=== PATIENT | male | born 1945 | race Caucasian/White ===

== ENCOUNTER → 2018-02-27 09:19 | Outpatient (CLI) | payer MEDICARE, SELFPAY ==
[2018-02-27 10:15] LABS: Hemoglobin A1c 5.7 % (4.2-6.3)
[2018-02-27 10:20] LABS: ALB/GLOB Ratio 1.3 RATIO (0.9-2.4); AST(SGOT) 21 U/L (15-37); Alanine Aminotransfer ALT/SGPT 32 U/L (16-61); Albumin, Serum 3.9 g/dL (3.2-5.0); Alkaline Phosphatase 78 U/L (45-117); Anion Gap 8 (5-15); BUN 16 mg/dL (7-18); BUN/Creat Ratio 17.5 RATIO (10-20); Calcium,Total 8.5 mg/dL (8.5-10.1); Chloride 106 mmol/L (98-107); Cholesterol 146 mg/dL (200); Creatinine, Serum 0.92 mg/dL (0.70-1.30); EST Glomerular Filtration Rate 87 mL/min (>60); Est Glom Filt Rate - Afr Amer 105 mL/min (>60); Globulin 3.1 g/dL (2.2-4.2); Glucose 128 mg/dL (74-106); High Density Lipoprotein 47 mg/dL; Potassium 4.2 mmol/L (3.5-5.1); Sodium Level 144 mmol/L (136-145); Triglycerides 94 mg/dL; Very Low Density Lipoprotein 19 mg/dL (5-40)
== END ==
PROVIDERS: Family Provider Family Medicine; PCP Family Medicine; Visit Provider Family Medicine
DX: Z00.00 Encounter for general adult medical examination without abnormal findings (principal); R73.01 Impaired fasting glucose; Z13.220 Encounter for screening for lipoid disorders; E78.5 Hyperlipidemia, unspecified
CPT/HCPCS: 36415; 80053; 80061; 83036

== ENCOUNTER → 2018-10-31 14:30 | Outpatient (CLI) | payer MEDICARE, SELFPAY ==
[2018-10-31 15:34] LABS: PSA,Total - Annual Screen 0.98 ng/mL (0.00-4.00)
== END ==
PROVIDERS: Family Provider Family Medicine; PCP Family Medicine
DX: N40.1 Benign prostatic hyperplasia with lower urinary tract symptoms (principal)
CPT/HCPCS: 36415; 84153; G0103

== ENCOUNTER → 2019-02-20 08:10 | Outpatient (CLI) | payer MEDICARE, SELFPAY ==
[2019-02-20 08:44] LABS: Absolute Lymphocyte Count 1.37 X10^3/ul (0.83-4.51); Absolute Neutrophil Count 2.6 X10^3/uL (2.0-7.7); Basophil# 0.07 X10^3/uL; Basophil% 1.5 % (0-1); Eosinophil# 0.22 X10^3/uL; Eosinophils% 4.6 % (0-5); Hematocrit 43.2 % (40-54); Hemoglobin 15.5 g/dl (13.0-16.5); Lymphocyte # 1.37 X10^3/ul (4.0); Lymphocyte % 28.7 % (19-41); Mean Corp Hgb Conc 35.9 g/gl (32-36); Mean Corpuscular Hgb 31.8 pg (27.0-32.0); Mean Corpuscular Volume 88.7 fL (80-94); Mean Platelet Vol. 9.8 fl (6.2-12.0); Monocyte# 0.51 X10^3/uL; Monocyte% 10.7 % (0-10); Neutrophil % 54.3 % (47-70); Platelet Count 133 K/mm3 (150-450); RBC Distribution Width CV 12.9 % (11.6-14.6); RBC Distribution Width SD 41.5 fl (35.1-43.9); Red Blood Count 4.87 M/mm3 (4.6-6.2); White Blood Count 4.8 K/mm3 (4.4-11.0)
[2019-02-20 08:48] LABS: POSITIVE COUNT NO; POSITIVE DIFFERENTIAL NO; POSITIVE MORPHOLOGY NO
[2019-02-20 08:54] LABS: ALB/GLOB Ratio 1.3 RATIO (0.9-2.4); AST(SGOT) 17 U/L (15-37); Alanine Aminotransfer ALT/SGPT 34 U/L (16-61); Albumin, Serum 3.7 g/dL (3.2-5.0); Alkaline Phosphatase 79 U/L (45-117); Anion Gap 5 (5-15); BUN 21 mg/dL (7-18); BUN/Creat Ratio 21.1 RATIO (10-20); Calcium,Total 8.3 mg/dL (8.5-10.1); Chloride 106 mmol/L (98-107); Cholesterol 162 mg/dL (200); EST Glomerular Filtration Rate 78 mL/min (>60); Est Glom Filt Rate - Afr Amer 95 mL/min (>60); Globulin 2.9 g/dL (2.2-4.2); Glucose 122 mg/dL (74-106); High Density Lipoprotein 49 mg/dL; Protein, Total 6.6 g/dL (6.4-8.2); Sodium Level 139 mmol/L (136-145); Triglycerides 62 mg/dL; Very Low Density Lipoprotein 12 mg/dL (5-40)
[2019-02-20 09:11] LABS: Hemoglobin A1c 5.8 % (4.2-6.3)
== END ==
PROVIDERS: Family Provider Family Medicine; PCP Family Medicine; Referring Provider Family Medicine; Visit Provider Family Medicine
DX: Z00.00 Encounter for general adult medical examination without abnormal findings (principal); E78.49 Other hyperlipidemia
CPT/HCPCS: 36415; 80053; 80061; 83036; 85025

== ENCOUNTER → 2019-11-02 10:19 | Outpatient (CLI) | payer MEDICARE, SELFPAY ==
[2019-11-02 10:50] LABS: PSA,Total - Annual Screen 1.05 ng/mL (0.00-4.00)
== END ==
PROVIDERS: PCP Family Medicine
DX: Z12.5 Encounter for screening for malignant neoplasm of prostate (principal)
CPT/HCPCS: 36415; 84153; G0103

== ENCOUNTER → 2020-02-18 08:35 | Outpatient (CLI) | payer MEDICARE, SELFPAY ==
[2020-02-18 09:32] LABS: ALB/GLOB Ratio 1.3 RATIO (0.9-2.4); AST(SGOT) 18 U/L (15-37); Alanine Aminotransfer ALT/SGPT 31 U/L (16-61); Albumin, Serum 3.7 g/dL (3.2-5.0); Alkaline Phosphatase 71 U/L (45-117); Anion Gap 6 (5-15); BUN 15 mg/dL (7-18); BUN/Creat Ratio 16.6 RATIO (10-20); Calcium,Total 8.2 mg/dL (8.5-10.1); Chloride 108 mmol/L (98-107); Cholesterol 159 mg/dL (200); EST Glomerular Filtration Rate 88 mL/min (>60); Est Glom Filt Rate - Afr Amer 106 mL/min (>60); Globulin 2.9 g/dL (2.2-4.2); Glucose 151 mg/dL (74-106); High Density Lipoprotein 42 mg/dL; Potassium 3.9 mmol/L (3.5-5.1); Protein, Total 6.6 g/dL (6.4-8.2); Sodium Level 141 mmol/L (136-145); Triglycerides 135 mg/dL; Very Low Density Lipoprotein 27 mg/dL (5-40)
== END ==
PROVIDERS: PCP Family Medicine; Referring Provider Family Medicine Sports Medicine; Visit Provider Family Medicine Sports Medicine
DX: E78.2 Mixed hyperlipidemia (principal)
CPT/HCPCS: 36415; 80053; 80061

== ENCOUNTER → 2020-11-05 08:50 | Outpatient (CLI) | payer MEDICARE, SELFPAY ==
[2020-11-05 10:16] LABS: PSA,Total - Annual Screen 1.17 ng/mL (0.00-4.00)
== END ==
PROVIDERS: PCP Family Medicine
DX: Z12.5 Encounter for screening for malignant neoplasm of prostate (principal)
CPT/HCPCS: 36415; 84153; G0103

== ENCOUNTER → 2021-05-06 07:51 | Outpatient (CLI) | payer MEDICARE, SELFPAY ==
[2021-05-06 08:24] LABS: Hematocrit 44.3 % (40-54); Hemoglobin 15.6 g/dL (13.0-16.5); Mean Corp Hgb Conc 35.2 g/dL (32-36); Mean Corpuscular Hgb 31.4 pg (27.0-32.0); Mean Corpuscular Volume 89.1 fL (80-94); Mean Platelet Vol. 10.2 fl (6.2-12.0); Platelet Count 143 K/mm3 (150-450); RBC Distribution Width CV 12.2 % (11.6-14.6); RBC Distribution Width SD 40.2 fl (35.1-43.9); Red Blood Count 4.97 M/mm3 (4.6-6.2); White Blood Count 5.7 K/mm3 (4.4-11.0)
[2021-05-06 08:33] LABS: ALB/GLOB Ratio 1.1 RATIO (0.9-2.4); AST(SGOT) 19 U/L (15-37); Alanine Aminotransfer ALT/SGPT 30 U/L (16-61); Albumin, Serum 3.6 g/dL (3.2-5.0); Alkaline Phosphatase 79 U/L (45-117); Anion Gap 6 (5-15); BUN 17 mg/dL (7-18); BUN/Creat Ratio 18.4 RATIO (10-20); Calcium,Total 8.4 mg/dL (8.5-10.1); Chloride 109 mmol/L (98-107); Cholesterol 156 mg/dL (200); Creatinine, Serum 0.92 mg/dL (0.70-1.30); EST Glomerular Filtration Rate 85 mL/min (>60); Est Glom Filt Rate - Afr Amer 103 mL/min (>60); Globulin 3.4 g/dL (2.2-4.2); Glucose 151 mg/dL (74-106); High Density Lipoprotein 47 mg/dL; Sodium Level 139 mmol/L (136-145); Triglycerides 110 mg/dL; Very Low Density Lipoprotein 22 mg/dL (5-40)
[2021-05-06 08:48] LABS: Hemoglobin A1c 5.8 % (3.8-5.6)
[2021-05-06 09:12] LABS: Hepatitis C Antibody Non-Reactive (Nonreactive)
== END ==
PROVIDERS: PCP Family Medicine; Referring Provider Family Medicine Sports Medicine; Visit Provider Family Medicine Sports Medicine
DX: Z00.00 Encounter for general adult medical examination without abnormal findings (principal); R73.01 Impaired fasting glucose; E78.2 Mixed hyperlipidemia; Z11.59 Encounter for screening for other viral diseases
CPT/HCPCS: 36415; 80053; 80061; 83036; 85027; 86803

== ENCOUNTER 2021-11-04 08:44 | Outpatient (CLI) | payer MEDICARE, SELFPAY ==
[2021-11-04 09:22] LABS: PSA,Total- Diagnostic 1.88 ng/mL (0.0-4.0)
== END 2021-11-04 23:59 | disposition home or self-care (01) ==
PROVIDERS: PCP Family Medicine; Visit Provider Urology
DX: N40.1 Benign prostatic hyperplasia with lower urinary tract symptoms (principal)
CPT/HCPCS: 36415; 84153

== ENCOUNTER → 2022-02-24 | Outpatient (CLI) | payer MEDICARE, SELFPAY ==
[2022-02-24 07:57] LABS: Absolute Lymphocyte Count 1.49 X10^3/uL (0.83-4.51); Absolute Neutrophil Count 3.5 X10^3/uL (2.0-7.7); Basophil# 0.07 X10^3/uL; Basophil% 1.2 % (0-1); Eosinophil# 0.22 X10^3/uL; Eosinophils% 3.7 % (0-5); Hematocrit 45.3 % (40-54); Lymphocyte # 1.49 X10^3/ul (0.83-4.51); Lymphocyte % 25.2 % (19-41); Mean Corp Hgb Conc 35.3 g/dL (32-36); Mean Corpuscular Volume 87.8 fL (80-94); Mean Platelet Vol. 9.9 fl (6.2-12.0); Monocyte# 0.63 X10^3/uL; Monocyte% 10.7 % (0-10); NRBC Flagged by Analyzer 0 % (0-5); Neutrophil # 3.49 X10^3/uL (2.7-7.7); Platelet Count 133 K/mm3 (150-450); RBC Distribution Width CV 12.5 % (11.6-14.6); RBC Distribution Width SD 40.4 fl (35.1-43.9); Red Blood Count 5.16 M/mm3 (4.6-6.2); White Blood Count 5.9 K/mm3 (4.4-11.0)
[2022-02-24 08:30] LABS: ALB/GLOB Ratio 1.2 RATIO (0.9-2.4); AST(SGOT) 14 U/L (15-37); Alanine Aminotransfer ALT/SGPT 29 U/L (16-61); Albumin, Serum 3.8 g/dL (3.2-5.0); Alkaline Phosphatase 76 U/L (45-117); Anion Gap 4 (5-15); BUN 20 mg/dL (7-18); BUN/Creat Ratio 21.9 RATIO (10-20); Calcium,Total 8.6 mg/dL (8.5-10.1); Chloride 108 mmol/L (98-107); Cholesterol 156 mg/dL (200); Creatinine, Serum 0.91 mg/dL (0.70-1.30); EST Glomerular Filtration Rate 86 mL/min (>60); Est Glom Filt Rate - Afr Amer 104 mL/min (>60); Globulin 3.1 g/dL (2.2-4.2); Glucose 139 mg/dL (74-106); High Density Lipoprotein 43 mg/dL; Protein, Total 6.9 g/dL (6.4-8.2); Sodium Level 138 mmol/L (136-145); Triglycerides 95 mg/dL; Very Low Density Lipoprotein 19 mg/dL (5-40)
== END | disposition home or self-care (01) ==
LOC: PAVLAB 07:35
PROVIDERS: PCP Family Medicine; Referring Provider Family Medicine Sports Medicine; Visit Provider Family Medicine Sports Medicine
DX: Z00.00 Encounter for general adult medical examination without abnormal findings (principal); D69.6 Thrombocytopenia, unspecified; R73.01 Impaired fasting glucose; E78.2 Mixed hyperlipidemia
CPT/HCPCS: 36415; 80053; 80061; 83036; 85025

== ENCOUNTER 2022-03-19 08:42 | Emergency (ER) | payer MEDICARE, SELFPAY ==
[2022-03-19 08:44] VITALS: BP 158/75; PULSE 65; RESP 18; TEMP 36.4; O2SAT 99; BMI 28.0
--- NOTE | 2022-03-19 09:47 | EKG12_ITS ---
Test Reason : Blood Pressure : / mmHG Vent. Rate : 059 BPM Atrial Rate : 059 BPM P-R Int : 184 ms QRS Dur : 094 ms QT Int : 404 ms P-R-T Axes : 022 005 017 degrees QTc Int : 399 ms Sinus bradycardia Otherwise normal ECG Confirmed by JOSE HERNANDEZ, HILDA ([id number]), supervising editor news reel JUANA CM ([id number]) on 03/22/2022 11:42:53 AM Referred By: Ruy Confirmed By:HILDA GARCIA MD
--- NOTE | 2022-03-19 09:47 | CT_ITS ---
STUDY: CT ABDOMEN AND PELVIS WITH CONTRAST REASON FOR EXAM: Male, 76 years old. Constipation, abdominal distention RADIATION DOSAGE (If Supplied By Facility): CTDIvol = ( 16.77 ) mGy, DLP = ( 958.08 ) mGycm TECHNIQUE: Transaxial images were obtained from the dome of the diaphragm to the symphysis pubis without oral contrast. IV 100mL Isovue-370 was administered. Sagittal and coronal images were reconstructed. Individualized dose optimization techniques were used for this CT. COMPARISON: None. FINDINGS: The visualized lung bases are unremarkable. Several small cysts are scattered throughout the liver, which are benign and require no additional imaging. Normal remaining aspects of the liver. No intrahepatic biliary duct dilatation or liver mass. Normal gallbladder and extrahepatic biliary system. Normal spleen. Mild acute pancreatitis is present with edema in the parenchyma and peripancreatic inflammatory stranding at the head neck junction. Normal body to tail of the pancreas. Normal bilateral adrenal glands. Normal right kidney. A 3 mm calyceal stone is present in the midpole of the left kidney see image #37/137 series 2. No hydronephrosis or renal masses. No visualized radiopaque stones. Normal visualized stomach. Normal small intestine. Moderate descending and rectosigmoid diverticulosis is present. Normal remaining colonic loops. A small amount of stool is present in the colon. No bowel dilatation or obstruction. No free air or free fluid. The appendix is visualized and appears normal. Normal abdominal aorta. Normal inferior vena cava. Normal retroperitoneum. Normal urinary bladder. Mild enlargement and calcifications of the prostate gland. Normal abdominal wall. There are diffuse degenerative changes of the visualized lumbar spine. CT/Abdomen/Pelvis W IV Cont ONLY IMPRESSION: 1. Acute pancreatitis affecting the head neck junction with mild peripancreatic inflammatory stranding. 2. Sigmoid diverticulosis 3. 3 mm nonobstructing left kidney stone 4. Small amount of stool in the colon. Electronically Signed: Earl Feldman MD at 11:43 EDT ,
--- NOTE | 2022-03-19 09:49 | ED.VIS.GI ---
HPI HPI - GI History of Present Illness Chief Complaint: Abd Pain Informant: patient Narrative Narrative: Patient is a 76-year-old male that denies any significant past medical history (had a routine screening colonoscopy earlier this year that was normal) presenting with abdominal pain and distention. Patient states he woke up Tuesday morning, 3 days ago with discomfort in his upper abdomen. He states is been persistent and unchanging. He describes as an ache. Denies any nausea, vomiting or diarrhea. States he had a good bowel movement yesterday but only had a small bowel movement this morning. States he is having a hard time passing gas. He is at increased belching. No change with eating or drinking. States he went golfing this week and it did not change his symptoms. Denies associated chest pain, shortness of breath or difficulty breathing. Denies a history of any abdominal surgeries. Denies any urinary symptoms. Has been taking Tums with no relief of his symptoms either. PFSH PFSH Home Medications hydrocodone-acetaminophen 5-325mg 5mg-325mg 1 tab PO Q6H PRN pain 3 days #12 tabs 03/19/22 [Rx Last Taken Unknown] ondansetron 4 mg disintegrating tablet 4 mg PO Q6H PRN nausea and vomiting #10 tabs 03/19/22 [Rx Last Taken Unknown] Allergy/AdvReac Type Severity Reaction Status Date / Time No Known Allergies Allergy Verified 03/19/22 08:47 Social History Smoking Status: Unknown if ever smoked ROS [facility] [[email or web address] ED Constitutional Constitutional ED: Denies chills or fever(s) ENT ENT ED: Denies rhinorrhea or sore throat Cardiovascular Cardiovascular: Denies chest pain or palpitations Respiratory/Chest Respiratory/Chest: Denies cough Gastrointestinal Gastrointestinal: Reports abdominal pain and constipation; Denies diarrhea, nausea or vomiting Genitourinary Genitourinary ED: Denies dysuria, hematuria or urinary frequency Musculoskeletal Musculoskeletal: Denies arthralgias or myalgias Integumentary Denies rash Neurologic Neurologic: Denies headache(s), paresthesias or weakness Psychiatric Psychiatric: Denies anxiety Hematologic/Lymphatic Hematologic/Lymphatic: Denies easy bleeding or easy bruising EXAM Physical Exam Const Vital Signs: 03/19/22 08:44 03/19/22 11:29 Temperature 97.5 F L Temperature Source Temporal Pulse Rate 65 70 Respiratory Rate 18 14 Blood Pressure 158/75 H 151/73 H Blood Pressure Mean 102 99 Pulse Ox 99 Oxygen Delivery Method Room Air Positive well nourished and well developed General Appearance ED: well developed and NAD HEENT HEENT Narrative: Tacky mucosal membranes normocephalic and atraumatic Eyes PERRL and EOMs intact bilaterally Neck supple and no JVD Resp normal respiratory effort and clear to auscultation bilaterally Effort and Inspection: Negative for respiratory distress Auscultation: Negative for rhonchi or wheezes Cardio regular rate, regular rhythm and no murmurs Cardio Narrative: 2+ radial and DP pulses GI GI Narrative: No fluid wave appreciated. Mild tenderness palpation in the upper abdomen diffusely but does not localize. Negative White sign. No pain McBurney's point. Inspection: abdominal distention Auscultation: hypoactive bowel sounds Palpation: soft; Negative for guarding or rigid Back/Spine no CVA tenderness Neuro moves all extremities and no sensory deficits noted Sensorium / Orientation: alert, oriented to person, oriented to place and oriented to time Motor Exam: strength 5/5 throughout; Negative for general weakness Psych mental status grossly normal and thought process normal Skin no wounds Skin Narrative: [place] General Skin Exam: Negative for jaundice MDM MDM MDM Narrative Medical decision making narrative: Patient is evaluated for upper abdominal discomfort and distention. He said some belching and constipation. He does drink 1 alcoholic beverage a day. Differential includes pancreatitis, peptic ulcer disease, small bowel obstruction or diverticulitis. Given the pain is above the level of the umbilicus and patient is 76, cardiac work-up also obtained which is largely negative. Work-up is remarkable for pancreatitis. His lipase elevated at 785 and [address] in his urine. CT is consistent with acute pancreatitis. Patient declines any pain medication here. He is overall well-appearing. Patient would like to try treating outpatient. Counseled on pain control as well as clear liquid diet and bowel rest. Has GI doctor, Dr. Dickerson, in [place]. Counseled the importance of following up with him especially to make sure that he does not have any type of pancreatic mass, polyp or cyst that could be contributing to his pancreatitis today. Encouraged to return to emergency room immediately if he is not tolerating conservative treatment at home. Lab Data Attestation: I reviewed the patient's lab results. Labs: Laboratory Results - last 24 hr 03/19/22 03/19/22 03/19/22 09:57 09:57 10:45 WBC 10.5 RBC 4.21 L Hgb 13.0 Hct 36.9 L MCV 87.6 MCH 30.9 MCHC 35.2 RDW Std Deviation 40.6 RDW Coeff of Yi 12.7 Plt Count 134 L MPV 10.1 Immature Gran % (Auto) 0.300 Neut % (Auto) 78.9 H Lymph % (Auto) 8.5 L [place] % (Auto) 10.7 H Eos % (Auto) 1.1 Baso % (Auto) 0.5 Absolute Neuts (auto) 8.3 H Absolute Lymphs (auto) 0.89 Nucleated RBC % 0 Sodium 133 L Potassium 3.7 Chloride 103 Carbon Dioxide 24.0 Anion Gap 6 BUN 15 Creatinine 0.88 Estim Creat Clear Calc 72.53 Est GFR (MDRD) Af Amer 108 Est GFR (MDRD) Non-Af 89 BUN/Creatinine Ratio 17.0 Glucose 132 H Calcium 8.3 L Total Bilirubin 0.90 AST 12 L ALT 19 Alkaline Phosphatase 71 Troponin I High Sens 4 Total Protein 6.7 Albumin 3.3 Globulin 3.4 Albumin/Globulin Ratio 1.0 Lipase 765 H Urine Color Yellow Urine Clarity Clear Urine pH 6.0 Ur Specific [place] 1.015 Urine Protein 15 H Urine Glucose (UA) Normal Urine Ketones 150 A* Urine Occult Blood 25 H Urine Nitrite Negative Urine Bilirubin Negative Urine Urobilinogen Normal Ur Leukocyte Esterase Negative Urine RBC 0 SEEN Urine WBC 0 SEEN Ur Squamous Epith Cells 0 SEEN Urine Bacteria 0 SEEN Urine Mucus 0 SEEN Radiography Diagnostic Testing: Clinical Impression(s) from Imaging Studies Abdomen/Pelvis CT 03/19/22 09:47 IMPRESSION: 1. Acute pancreatitis affecting the head neck junction with mild peripancreatic inflammatory stranding. 2. Sigmoid diverticulosis 3. 3 mm nonobstructing left kidney stone 4. Small amount of stool in the colon. Electronically Signed: Earl Feldman MD at 11:43 EDT , Rhythm Strip Rhythm Strip: Sinus Rhythm Rate: 59 Ectopy: None EKG Initial EKG: Attestation: I personally reviewed and interpreted this EKG as follows: Interpretation: Sinus Rhythm Comments: Normal sinus rhythm at a rate of 59 Normal axis Normal intervals Normal ST segments Discharge Plan Triage Chief Complaint: Abd Pain ED Provider: Jacki Rojas Dx/Rx/DC Orders Clinical Impression: Acute pancreatitis, Elevated lipase, Abdominal distension Instructions: ED Clear Liquid Diet, ED Pancreatitis Prescriptions: New ondansetron 4 mg tablet,disintegrating 4 mg PO Q6H PRN (Reason: nausea and vomiting) Qty: 10 0RF hydrocodone-acetaminophen 5-325 mg tablet 1 tab PO Q6H PRN (Reason: pain) 3 Days Qty: 12 0RF Primary Care Provider: Aurora Cool Referrals: Aurora Cool MD [Primary Care Provider] - Activity Restrictions/Additional Instructions: Please follow-up with your GI doctor soon as possible for further evaluation of your pancreatitis. Avoid any alcohol. If you are taking the pain medication please also take a stool softener or MiraLAX to prevent constipation. Disposition Disposition: Home, Self Care
--- NOTE | 2022-03-19 09:58 | NURSING ---
NO OLD EKGS
[2022-03-19] MEDS: 0.9% Normal Saline 1,000 ML 125 ML IV (10:00)
[2022-03-19] MEDS: Famotidine 200 MG/20 ML MDV 20 MG in 0.9% Normal Saline (Pres. free 8 ML 300 MG IV (10:01)
[2022-03-19 10:11] LABS: Absolute Lymphocyte Count 0.89 X10^3/uL (0.83-4.51); Absolute Neutrophil Count 8.3 X10^3/uL (2.0-7.7); Basophil# 0.05 X10^3/uL; Basophil% 0.5 % (0-1); Eosinophil# 0.12 X10^3/uL; Eosinophils% 1.1 % (0-5); Hematocrit 36.9 % (40-54); Lymphocyte # 0.89 X10^3/ul (0.83-4.51); Lymphocyte % 8.5 % (19-41); Mean Corp Hgb Conc 35.2 g/dL (32-36); Mean Corpuscular Hgb 30.9 pg (27.0-32.0); Mean Corpuscular Volume 87.6 fL (80-94); Mean Platelet Vol. 10.1 fl (6.2-12.0); Monocyte# 1.12 X10^3/uL; Monocyte% 10.7 % (0-10); NRBC Flagged by Analyzer 0 % (0-5); Neutrophil # 8.27 X10^3/uL (2.7-7.7); Neutrophil % 78.9 % (47-70); Platelet Count 134 K/mm3 (150-450); RBC Distribution Width CV 12.7 % (11.6-14.6); RBC Distribution Width SD 40.6 fl (35.1-43.9); Red Blood Count 4.21 M/mm3 (4.6-6.2); White Blood Count 10.5 K/mm3 (4.4-11.0)
[2022-03-19 10:32] LABS: AST(SGOT) 12 U/L (15-37); Alanine Aminotransfer ALT/SGPT 19 U/L (16-61); Albumin, Serum 3.3 g/dL (3.2-5.0); Alkaline Phosphatase 71 U/L (45-117); Anion Gap 6 (5-15); BUN 15 mg/dL (7-18); Calcium,Total 8.3 mg/dL (8.5-10.1); Chloride 103 mmol/L (98-107); Creatinine, Serum 0.88 mg/dL (0.70-1.30); EST Glomerular Filtration Rate 89 mL/min (>60); Est Glom Filt Rate - Afr Amer 108 mL/min (>60); Estimated Creatinine Clearance 72.53 ml/min; Globulin 3.4 g/dL (2.2-4.2); Glucose 132 mg/dL (74-106); Lipase 765 U/L (73-393); Potassium 3.7 mmol/L (3.5-5.1); Protein, Total 6.7 g/dL (6.4-8.2); Sodium Level 133 mmol/L (136-145); Troponin-I HS 4 pg/mL (3.0-78.0)
[2022-03-19 10:48] LABS: Bacteria 0 SEEN /hpf (None Seen); Mucous, Urine 0 SEEN /hpf (<or=2+); Red Blood Cells-Urine 0 SEEN /hpf (0-5); Squamous Epithelial Cells - UA 0 SEEN /hpf (0-5); White Blood Cells 0 SEEN /hpf (0-5)
[2022-03-19 10:49] LABS: Color, Urine Yellow (Yellow); Glucose, Dipstick Normal (Normal); Leukocyte Esterase-Dipstick Negative /ul (Negative); Nitrite-Dipstick Negative (Negative); Occult Blood-Urine 25 /ul (Negative); Protein-Dipstick 15 mg/dl (Negative); Specific Gravity, Urine 1.015 (1.002-1.030); Urine Bilirubin Dipstick Negative (Negative); Urine Clarity Clear (Clear); Urine Urobilinogen Normal (Normal)
[2022-03-19 11:01] LABS: Ketone-Dipstick 150 mg/dl (Negative)
[2022-03-19 11:29] VITALS: BP 151/73; PULSE 70; RESP 14
[2022-03-19 14:14] VITALS: BP 148/68; PULSE 79; RESP 15; O2SAT 98
[2022-03-19] MEDS: HYDROcodone Bitartrate/Apap 5/325 Tablet PO (14:21)
== END 2022-03-19 14:25 | disposition home or self-care (01) ==
PROVIDERS: Emergency Provider Emergency Medicine; PCP Family Medicine Sports Medicine; Visit Provider Emergency Medicine
DX: K85.90 Acute pancreatitis without necrosis or infection, unspecified (principal); R14.0 Abdominal distension (gaseous)
CPT/HCPCS: 74177; 80053; 81001; 83690; 84484; 85025; 93005; 96361; 96365; 99283; J7030; Q9967; A4216; J3490

== ENCOUNTER → 2022-11-11 | Outpatient (CLI) | payer MEDICARE, SELFPAY ==
[2022-11-11 09:44] LABS: PSA,Total- Diagnostic 1.58 ng/mL (0.0-4.0)
== END | disposition home or self-care (01) ==
LOC: PAVLAB 09:02
PROVIDERS: PCP Family Medicine Sports Medicine; Referring Provider Urology; Visit Provider Urology
DX: N40.1 Benign prostatic hyperplasia with lower urinary tract symptoms (principal)
CPT/HCPCS: 36415; 84153

== ENCOUNTER → 2023-03-03 | Outpatient (CLI) | payer MEDICARE, SELFPAY ==
[2023-03-03 08:21] LABS: Absolute Lymphocyte Count 1.37 X10^3/uL (0.83-4.51); Absolute Neutrophil Count 2.6 X10^3/uL (2.0-7.7); Basophil# 0.07 X10^3/uL; Basophil% 1.4 % (0-1); Eosinophil# 0.29 X10^3/uL; Hematocrit 44.4 % (40-54); Hemoglobin 15.1 g/dL (13.0-16.5); Lymphocyte # 1.37 X10^3/ul (0.83-4.51); Lymphocyte % 28.2 % (19-41); Mean Corpuscular Hgb 30.1 pg (27.0-32.0); Mean Corpuscular Volume 88.6 fL (80-94); Mean Platelet Vol. 9.9 fl (6.2-12.0); Monocyte# 0.57 X10^3/uL; Monocyte% 11.7 % (0-10); NRBC Flagged by Analyzer 0 % (0-5); Neutrophil # 2.55 X10^3/uL (2.7-7.7); Neutrophil % 52.5 % (47-70); Platelet Count 128 K/mm3 (150-450); RBC Distribution Width CV 12.8 % (11.6-14.6); RBC Distribution Width SD 41.4 fl (35.1-43.9); Red Blood Count 5.01 M/mm3 (4.6-6.2); White Blood Count 4.9 K/mm3 (4.4-11.0)
[2023-03-03 08:57] LABS: ALB/GLOB Ratio 1.2 RATIO (0.9-2.4); AST(SGOT) 17 U/L (15-37); Alanine Aminotransfer ALT/SGPT 27 U/L (16-61); Albumin, Serum 3.7 g/dL (3.2-5.0); Alkaline Phosphatase 78 U/L (45-117); Anion Gap 5 (5-15); BUN 20 mg/dL (7-18); BUN/Creat Ratio 20.8 RATIO (10-20); Calcium,Total 8.4 mg/dL (8.5-10.1); Chloride 109 mmol/L (98-107); Cholesterol 131 mg/dL (200); Creatinine, Serum 0.96 mg/dL (0.70-1.30); EST Glomerular Filtration Rate 81 mL/min (>60); Est Glom Filt Rate - Afr Amer 98 mL/min (>60); Globulin 3.2 g/dL (2.2-4.2); Glucose 138 mg/dL (74-106); High Density Lipoprotein 47 mg/dL; Protein, Total 6.9 g/dL (6.4-8.2); Sodium Level 139 mmol/L (136-145); Triglycerides 83 mg/dL; Very Low Density Lipoprotein 17 mg/dL (5-40)
[2023-03-03 08:59] LABS: Hemoglobin A1c 5.9 % (3.8-5.6)
== END | disposition home or self-care (01) ==
LOC: PAVLAB 08:02
PROVIDERS: PCP Family Medicine Sports Medicine; Referring Provider Family Medicine Sports Medicine; Visit Provider Family Medicine Sports Medicine
DX: Z00.00 Encounter for general adult medical examination without abnormal findings (principal); R73.01 Impaired fasting glucose; E78.2 Mixed hyperlipidemia
CPT/HCPCS: 36415; 80053; 80061; 83036; 85025

== ENCOUNTER → 2023-11-28 | Outpatient (CLI) | payer MEDICARE, SELFPAY ==
[2023-11-28 09:05] LABS: PSA,Total- Diagnostic 1.31 ng/mL (0.0-4.0)
== END | disposition home or self-care (01) ==
LOC: PAVLAB 08:26
PROVIDERS: PCP Family Medicine Sports Medicine; Referring Provider Urology; Visit Provider Urology
DX: N40.1 Benign prostatic hyperplasia with lower urinary tract symptoms (principal)
CPT/HCPCS: 36415; 84153

== ENCOUNTER → 2024-03-06 | Outpatient (CLI) | payer MEDICARE, SELFPAY ==
[2024-03-06 08:45] LABS: Absolute Lymphocyte Count 1.24 X10^3/uL (0.83-4.51); Basophil# 0.07 X10^3/uL; Basophil% 1.4 % (0-1); Eosinophil# 0.22 X10^3/uL; Eosinophils% 4.3 % (0-5); Hematocrit 44.9 % (40-54); Hemoglobin 15.1 g/dL (13.0-16.5); Lymphocyte # 1.24 X10^3/ul (0.83-4.51); Lymphocyte % 24.5 % (19-41); Mean Corp Hgb Conc 33.6 g/dL (32-36); Mean Corpuscular Hgb 29.4 pg (27.0-32.0); Mean Corpuscular Volume 87.4 fL (80-94); Mean Platelet Vol. 10.1 fl (6.2-12.0); Monocyte# 0.49 X10^3/uL; Monocyte% 9.7 % (0-10); NRBC Flagged by Analyzer 0 % (0-5); Neutrophil # 3.02 X10^3/uL (2.7-7.7); Neutrophil % 59.7 % (47-70); Platelet Count 131 K/mm3 (150-450); RBC Distribution Width CV 12.8 % (11.6-14.6); RBC Distribution Width SD 40.6 fl (35.1-43.9); Red Blood Count 5.14 M/mm3 (4.6-6.2); White Blood Count 5.1 K/mm3 (4.4-11.0)
[2024-03-06 09:05] LABS: Hemoglobin A1c 5.6 % (3.8-5.6)
[2024-03-06 09:14] LABS: ALB/GLOB Ratio 1.1 RATIO (0.9-2.4); AST(SGOT) 21 U/L (15-37); Alanine Aminotransfer ALT/SGPT 28 U/L (16-61); Albumin, Serum 3.8 g/dL (3.2-5.0); Alkaline Phosphatase 84 U/L (45-117); Anion Gap 6 (5-15); BUN 21 mg/dL (7-18); BUN/Creat Ratio 20.4 RATIO (10-20); Calcium,Total 8.5 mg/dL (8.5-10.1); Chloride 105 mmol/L (98-107); Cholesterol 145 mg/dL (200); Creatinine, Serum 1.03 mg/dL (0.70-1.30); EST Glomerular Filtration Rate 74 mL/min (>60); Est Glom Filt Rate - Afr Amer 90 mL/min (>60); Globulin 3.4 g/dL (2.2-4.2); Glucose 141 mg/dL (74-106); High Density Lipoprotein 44 mg/dL; Potassium 3.9 mmol/L (3.5-5.1); Protein, Total 7.2 g/dL (6.4-8.2); Sodium Level 138 mmol/L (136-145); Triglycerides 127 mg/dL; Very Low Density Lipoprotein 25 mg/dL (5-40)
== END | disposition home or self-care (01) ==
LOC: PAVLAB 08:13
PROVIDERS: PCP Family Medicine Sports Medicine; Referring Provider Family Medicine Sports Medicine; Visit Provider Family Medicine Sports Medicine
DX: E78.2 Mixed hyperlipidemia (principal); R97.20 Elevated prostate specific antigen [PSA]; D69.6 Thrombocytopenia, unspecified; R73.01 Impaired fasting glucose
CPT/HCPCS: 36415; 80053; 80061; 83036; 85025

== ENCOUNTER → 2024-12-05 | Outpatient (CLI) | payer MEDICARE, SELFPAY ==
[2024-12-05 09:16] LABS: PSA,Total - Annual Screen 1.94 ng/mL (0.02-4.00)
== END | disposition home or self-care (01) ==
LOC: LAB 07:28
PROVIDERS: PCP Family Medicine Sports Medicine; Referring Provider Physician Assistant; Visit Provider Physician Assistant
DX: Z12.5 Encounter for screening for malignant neoplasm of prostate (principal)
CPT/HCPCS: 36415; 84153; G0103

== ENCOUNTER → 2025-03-07 | Outpatient (CLI) | payer MEDICARE, SELFPAY ==
[2025-03-07 08:36] LABS: Hematocrit 41.8 % (40-54); Hemoglobin 14.4 g/dL (13.0-16.5); Mean Corp Hgb Conc 34.4 g/dL (32-36); Mean Corpuscular Volume 85.5 fL (80-94); Mean Platelet Vol. 9.7 fl (6.2-12.0); Platelet Count 145 K/mm3 (150-450); RBC Distribution Width CV 13.4 % (11.6-14.6); RBC Distribution Width SD 41.7 fl (35.1-43.9); Red Blood Count 4.89 M/mm3 (4.6-6.2); White Blood Count 5.2 K/mm3 (4.4-11.0)
[2025-03-07 09:19] LABS: AST(SGOT) 19 U/L (<=37); Alanine Aminotransfer ALT/SGPT 18 U/L (<=46); Albumin, Serum 4.3 g/dL (3.4-4.8); Alkaline Phosphatase 80 U/L (40-129); Anion Gap 11 (5-15); BUN 17 mg/dL (4-19); BUN/Creat Ratio 17.4 RATIO (10-20); Calcium,Total 8.8 mg/dL (7.6-11.0); Carbon Dioxide 23.8 mmol/L (21.0-32.0); Chloride 102 mmol/L (98-108); Cholesterol 157 mg/dL (<=200); Globulin 2.6 g/dL (2.2-4.2); Glucose 145 mg/dL (70-99); Low Density Lipoprotein Calc. 88 mg/dL; Potassium 4.2 mmol/L (3.3-5.1); Triglycerides 106 mg/dL; Very Low Density Lipoprotein 21 mg/dL (5-40); cholesterol:hdl ratio screen 3.30
== END | disposition home or self-care (01) ==
LOC: PAVLAB 08:17
PROVIDERS: PCP Family Medicine Sports Medicine; Referring Provider Family Medicine Sports Medicine; Visit Provider Family Medicine Sports Medicine
DX: E78.2 Mixed hyperlipidemia (principal); R73.01 Impaired fasting glucose
CPT/HCPCS: 36415; 80053; 80061; 83036; 85027

== ENCOUNTER 2025-05-03 22:04 | Emergency (ER) | payer MEDICARE, SELFPAY ==
[2025-05-03 22:04] VITALS: BP 174/79; PULSE 51; RESP 20; TEMP 36.6; O2SAT 99; BMI 29.2
[2025-05-03 22:40] LABS: Hematocrit 42.7 % (40-54); Hemoglobin 15.1 g/dL (13.0-16.5); Immature Granulocytes Count 0.020 X10^3/uL (0.0-0.0); Mean Corp Hgb Conc 35.4 g/dL (32-36); Mean Corpuscular Volume 86.1 fL (80-94); Mean Platelet Vol. 9.6 fl (6.2-12.0); NRBC Flagged by Analyzer 0 % (0-5); Platelet Count 155 K/mm3 (150-450); RBC Distribution Width CV 13.7 % (11.6-14.6); RBC Distribution Width SD 42.5 fl (35.1-43.9); Red Blood Count 4.96 M/mm3 (4.6-6.2); White Blood Count 6.8 K/mm3 (4.4-11.0)
[2025-05-03 23:11] LABS: Mucous, Urine 0 SEEN /hpf (<or=2+); Red Blood Cells-Urine 0 SEEN /hpf (0-5); Squamous Epithelial Cells - UA 0 SEEN /hpf (0-5)
[2025-05-03 23:18] LABS: Color, Urine Yellow (Yellow); Glucose, Dipstick Normal (Normal); Ketone-Dipstick Negative (Negative); Leukocyte Esterase-Dipstick Negative /ul (Negative); Nitrite-Dipstick Negative (Negative); Occult Blood-Urine 10 /ul (Negative); Protein-Dipstick 15 mg/dl (Negative); Specific Gravity, Urine 1.020 (1.002-1.030); Urine Bilirubin Dipstick Negative (Negative)
--- NOTE | 2025-05-03 23:25 | CT_ITS ---
PROCEDURE: ABDOMEN/PELVIS W IV CONT ONLY 05/03/2025 REASON FOR EXAM: LEFT LOWER QUADRANT PAIN TECHNIQUE: Procedure Code: [id number] Modality: CT Procedure: ABDOMEN/PELVIS W IV CONT ONLY Coronal and Sagittal reconstruction series were provided. CONTRAST: Isovue-350 VOLUME: 100 mL One or more dose reduction techniques were used (e.g., Automated exposure control, adjustment of the mA and/or kV according to patient size, use of iterative reconstruction technique. RADIATION DOSE SUMMARY: CTDlvol: 19.83 mGy DLP: 1107 mGycm COMPARISON: 03/19/2022. FINDINGS: Diffuse colonic diverticulosis. Mild thickening of the distal descending and proximal sigmoid colon, probably mild colitis/diverticulitis without perforation or abscess formation. Unchanged 3 mm left renal nonobstructing stone. Scattered simple hepatic cysts are again noted with the largest measuring 1 cm. Diffuse thickening of the stomach suggestive of gastritis. Mild prostatomegaly, unchanged. Mild diffuse thickening of the bladder. Chronic bladder outlet obstruction versus mild cystitis. 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 The visualized lung bases are unremarkable. Normal gallbladder and extrahepatic biliary system. Normal spleen. Normal pancreas. Normal bilateral adrenal glands. Normal size of the right kidney. There is no right renal mass. There are no right renal calculi. There is no right hydronephrosis. Normal visualized right ureter. Normal size of the left kidney. There is no left renal mass. There is no left hydronephrosis. Normal visualized left ureter. Normal visualized stomach. Normal small intestine. Normal colon. The appendix is visualized and appears normal. There is no demonstrated peritoneal fluid. Calcified atheromatous plaques of the abdominal aorta. Normal inferior vena cava. Normal retroperitoneum. Normal urinary bladder. There is no pelvic mass lesion or lymphadenopathy. There is no pelvic fluid. Normal abdominal wall. Mild diffuse spondylosis. CT/Abdomen/Pelvis W IV Cont ONLY IMPRESSION: Diffuse colonic diverticulosis. Mild thickening of the distal descending and proximal sigmoid colon, probably m ild colitis/diverticulitis without perforation or abscess formation. Unchanged 3 mm left renal nonobstructing stone. Scattered simple hepatic cysts are again noted with the largest measuring 1 cm. Diffuse thickening of the stomach suggestive of gastritis. Mild prostatomegaly, unchanged. Mild diffuse thickening of the bladder. Chronic bladder outlet obstruction vers us mild cystitis. 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 [facility]
--- NOTE | 2025-05-03 23:26 | EDS_ITS ---
HPI HPI - GI History of Present Illness Chief Complaint: Abd Pain Informant: patient and spouse/S.O. Narrative Narrative: Patient has had left lower lateral abdominal pain that started yesterday gradually, but worsened today and has been somewhat colicky. No radiation. No back pain. No urinary symptoms, changes in bowel movements which been normal, nausea, vomiting, fevers, or chills. No history of any abdominal surgeries. He states in the last week or 2 has been having some off-and-on very mild comfort in his lower abdomen but nothing that lasted very long or was severe like this. Never had this pain before. States has had colonoscopies and was told everything was good, no history of diverticulosis or diverticulitis to his knowledge. [facility] Medical History (Updated 05/04/25 @ 02:[address] Kraig Boyd MD) Hyperlipidemia BPH (benign prostatic hyperplasia) Home Medications ?Medication ?Instructions ?Recorded ?Last Taken ?Type hydrocodone-acetaminophen 5-325mg 1 tab PO Q6H PRN divya n 3 days #12 03/19/22 Unknown Rx 5mg-325mg tabs ondansetron 4 mg disintegrating 4 mg PO Q6H PRN nausea and 03/19/22 Unknown Rx tablet vomiting #10 tabs amoxicillin 875 mg-potassium 875 mg PO Q12H #20 TABLET S 05/04/25 Unknown Rx clavulanate 125 mg tablet Allergy/AdvReac Type Severity Reaction Status Date / Time No Known Allergies Allergy Verified 05/03/25 22:05 Social History Smoking Status: Unknown if ever smoked ROS ROS ED Constitutional Constitutional ED: Denies chills or fever(s) Eyes Eyes: Denies change in vision or diplopia ENT ENT ED: Denies rhinorrhea or sore throat Cardiovascular Cardiovascular: Denies chest pain or palpitations Respiratory/Chest Respiratory/Chest: Denies cough or dyspnea Gastrointestinal Gastrointestinal: Reports abdominal pain; Denies diarrhea, nausea or vomiting Genitourinary Genitourinary ED: Denies dysuria or hematuria Musculoskeletal Musculoskeletal: Denies back pain or neck pain Integumentary Denies abscess or rash Neurologic Neurologic: Denies headache(s), paresthesias or weakness Psychiatric Psychiatric: Denies anxiety or suicidal thoughts EXAM Physical Exam Const Vital Signs: 05/03/25 22:04 05/04/25 00:14 Temperature 97.9 F 98.5 F Temperature Source Oral Oral Pulse Rate 51 L 52 L Respiratory Rate 20 H 16 Blood Pressure 174/79 H 148/75 H Blood Pressure Mean 110 99 Pulse Ox 99 97 Oxygen Delivery Method Room Air Room Air Positive well nourished and well developed General Appearance ED: well developed and NAD HEENT Reports moist mucous membranes normocephalic and atraumatic Eyes PERRL and EOMs intact bilaterally Neck full ROM and supple Resp normal respiratory effort and clear to auscultation bilaterally Cardio regular rate, regular rhythm and no murmurs GI non-distended GI Narrative: Very point tender in the lateral aspect of the left lower quadrant. Some mild voluntary guarding is resolved, no rebound tenderness or other areas of tenderness. Normal inspection no [place] sign, no Ramirez Foster sign. No CVA tenderness. Auscultation: normoactive bowel sounds Palpation: soft Back/Spine no CVA tenderness General Back: other FROM Extremity normal to inspection General Extremety ED: Negative for edema, pulses abnormal or tenderness General Extremity: Negative for edema or pulses abnormal Neuro oriented x3, CN's II-XII intact bilaterally and no sensory deficits noted Sensorium / Orientation: awake and alert Motor Exam: strength 5/5 throughout Skin no rashes or lesions noted and no wounds MDM MDM MDM Narrative Medical decision making narrative: Differential includes diverticulitis even though he does not know if he has diverticulosis or not, kidney stone, less likely AAA given his stability and no loss of pulses, other GI etiologies. Obtain labs, urinalysis, and CT of the abdomen/pelvis with IV contrast. I reviewed the images and report which I agree with. There are multiple incidentals and I discussed them all with the patient, but it does show an area suspicious for acute diverticulitis which I think explains his symptoms. Going to treat him with Augmentin. Does not have a significant leukocytosis, he is not septic, his vital signs are normal, after treating his pain his blood pressure is down to 148/75 and his pain is better with morphine. Reasonable to treat with Augmentin as an outpatient and have him follow-up with his doctor. He is comfortable with that plan. Was offered prescription analgesics and he declines. Lab Data Attestation: I reviewed the patient's lab results. Labs: Laboratory Results - last 24 hr 05/03/25 05/03/25 22:20 23:00 WBC 6.8 RBC 4.96 Hgb 15.1 Hct 42.7 MCV 86.1 MCH 30.4 MCHC 35.4 RDW Std Deviation 42.5 RDW Coeff of Yi 13.7 Plt Count 155 MPV 9.6 Immature Gran % (Auto) 0.300 Neut % (Auto) 58.8 Lymph % (Auto) 27.2 [place] % (Auto) 9.5 Eos % (Auto) 3.3 Baso % (Auto) 0.9 Absolute Neuts (auto) 4.0 Absolute Lymphs (auto) 1.84 Nucleated RBC % 0 Sodium 138 Potassium 4.2 Chloride 102 Carbon Dioxide 22.4 Anion Gap 13 BUN 21 H Creatinine 1.04 Estim Creat Clear Calc 64.93 Est GFR (MDRD) Non-Af 73 BUN/Creatinine Ratio 20.5 H Glucose 176 H Calcium 9.0 Total Bilirubin 0.34 AST 23 ALT 21 Alkaline Phosphatase 89 Total Protein 6.9 Albumin 4.3 Globulin 2.5 Albumin/Globulin Ratio 1.7 Lipase 32 Urine Color Yellow Urine Clarity Clear Urine pH 6.0 Ur Specific [place] 1.020 Urine Protein 15 H Urine Glucose (UA) Normal Urine Ketones Negative Urine Occult Blood 10 H Urine Nitrite Negative Urine Bilirubin Negative Urine Urobilinogen Normal Ur Leukocyte Esterase Negative Urine RBC 0 SEEN Urine WBC 0 SEEN Ur Squamous Epith Cells 0 SEEN Urine Bacteria 0 SEEN Urine Mucus 0 SEEN Radiography Diagnostic Testing: Clinical Impression(s) from Imaging Studies Abdomen/Pelvis CT 05/03/25 23:25 IMPRESSION: Diffuse colonic diverticulosis. Mild thickening of the distal descending and proximal sigmoid colon, probably mild colitis/diverticulitis without perforation or abscess formation. Unchanged 3 mm left renal nonobstructing stone. Scattered simple hepatic cysts are again noted with the largest measuring 1 cm. Diffuse thickening of the stomach suggestive of gastritis. Mild prostatomegaly, unchanged. Mild diffuse thickening of the bladder. Chronic bladder outlet obstruction versus mild cystitis. 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 Reading Location: [place] [address] Discharge Plan Triage Chief Complaint: Abd Pain ED Provider: Kraig Boyd Dx/Rx/DC Orders Clinical Impression: Diverticulitis Instructions: Diverticulitis Dc Prescriptions: New amoxicillin-pot clavulanate 875-125 mg tablet 875 mg PO Q12H Qty: 20 0RF No Action ondansetron 4 mg tablet,disintegrating 4 mg PO Q6H PRN (Reason: nausea and vomiting) Qty: 10 0RF hydrocodone-acetaminophen 5-325 mg tablet 1 tab PO Q6H PRN (Reason: pain) 3 Days Qty: 12 0RF Primary Care Provider: Aurora Cool Referrals: Aurora Cool MD [Primary Care Provider, Family Practice] - 1-2 Weeks Print Language: Jamaican Disposition Disposition: Home, Self Care
--- OUTSIDE RECORDS SUMMARY | 2025-05-03 23:34 | XMS RPT_ITS | CCD ---
Author Organization [facility] CliniSyhi Care Team Providers Care Mobile Product Manager Name Role Phone Unavailable Primary Care Provider UnavailBud Aguirre MD Primary Care Provider Travon HERNANDEZ, Bud Primary Care Provider Bud Cool MD Primary Care Provider Travon HERNANDEZ, Bud Primary Care Provider Travon HERNANDEZ, Bud Primary Care Provider Reggie Hanson MD Unavailable Tuan HERNANDEZ, Alexis Pierre Unavailable Terrance Zarate Unavailable Dr. Bud Cool MD Primary Care Provider Otf Walker PA-C Attending Provider Otf Walker PA-C Referring Provider Reggie Hanson MD Unavailable Edie Pollard PA-C Unavailable Reggie Hanson MD Unavailable BUD COOL Attending Unavailable BUD COOL Primary Care Unavailable SHAYE ALVAREZ Attending Unava ilBUD Childress Primary Care Unavailable SHAYE ALVAREZ Attending Unava ilBUD Childress Primary Care Unavailable Dr. Bdu Cool MD Attending Provider Dr. Bud Cool MD Referring Provider Edie Sifuentes Other Provider Otf Walker Referring Unavailable Bud Cool Primary Care Unavailable Otf Walker Attending Unavailable Edie Sifuentes Unavailab Bud Dunne Primary Care Unavailable Bud Cool Attending Unavailable Bud Cool Referring Unavailable Medications Current Medications Medication Drug Class(es) Dates Sig (Normalized) Sig (Original) acetaminophen 325 mg / HYDROcodone bitartrate 5 mg oral tablet (6 sources) Opioid Agonist Start: 03-19-2022 take 1 tablet by mouth every six hours as needed for pain Hydrocodone-Acetami nophen 5-325 mg tablet Active 1 {tbl} PO EVERY 6 HOURS as needed for pain 12 3 0 March 19, 2022 Acute pancreatitis Acute pancreatitis without necrosis or infection, unspecified Start: 03-19-2022 take 1 tablet by adelaida th every six hours Hydrocodone-Acetaminophen Active 1 TABLE T PO EVERY 6 HOURS 12 3 March 19, 2022 amoxicillin 875 mg / clavulanate 125 mg oral tablet (2 sources) Penicillin-class Antibacterial Start: 09-29-2023 End: 10-06-2023 take 1 tablet by mouth every twelve hours amoxicillin-clavulanate potassium (AUGMENTIN) 875-125 mg per tablet Indications: Upper respiratory infection with cough and congestion Take 1 tablet by mouth every 12 hours for 7 days. 14 tablet 0 09/29/2023 10/06/2023 Active Start: 11-10-2022 End: 11-17-2022 take 1 tablet by mouth every twelve hours amoxicillin-clavulanic acid (AUGMENTIN) 875-125 mg per tablet Indications: Upper respiratory infection with cough and congestion Take 1 tablet by mouth every 12 hours for 7 days. 14 tablet 0 11/10/2022 11/17/2022 Active Comment on above: Take 1 tablet by adelaida th every 12 hours for 7 days. cetirizine hydrochloride 10 mg oral tablet (18 sources) Histamine-1 Receptor Antagonist take 1 tablet by mouth once daily cetirizine (ZYRTEC) 10 mg tablet Take 10 mg by mouth once daily. Active Comment on above: Take 10 mg by mouth once daily. cholecalciferol 0.05 mg oral tablet (20 sources) Vitamin D take 1 tablet by mouth once daily cholecalciferol (VITAMIN D3) 50 mcg (2,000 unit) tablet Take 2,000 Units by mouth once daily. Active Comment on above: Take 2,000 Units by mouth once daily. doxycycline monohydrate 100 mg oral capsule (1 source) Tetracycline-class Drug Start: End: take 1 capsule by mouth twice daily doxycycline monohydrate (MONODOX) 100 mg capsule Indications: Rash Take 1 capsule by mouth two times a day for 5 days. 10 capsule 0 01/15/2024 01/20/2024 Active ibuprofen 200 mg oral tablet (18 sources) Nonsteroidal Anti-inflammatory Drug take 1 tablet by mouth every six hours as needed ibuprofen (ADVIL) 200 mg tablet Take 200 mg by mouth every 6 hours as needed. Active Comment on above: Take 200 mg by mouth every 6 hours as needed. Magnesium (20 sources) take 1 tablet by mouth once daily Magnesium 250 mg tab Take 250 mg by mouth once daily. Active take 1 tablet by mouth once casandra y Magnesium 250 mg tab Take 250 mg by mouth once daily. 0 Active Comment on above: Take 250 mg by mouth once daily. ondansetron 4 mg disintegrating oral tablet (6 sources) Serotonin-3 Receptor Antagonist Start: 03-19-20 take 1 tablet by mouth every six hours as needed for nausea and vomiting Ondansetron 4 mg tablet,disintegrating Active 4 mg PO EVERY 6 HOURS as needed for nausea and vomiting 10 0 March 19, 2022 12:00am simvastatin 20 mg oral tablet (20 sources) HMG-CoA Reductase Inhibitor Start: 10-29-19 End: 03-07-20 25 take 1 tablet by mouth at bedtime simvastatin (ZOCOR) 20 mg tablet Indications: Mixed hyperlipidemia TAKE 1 TABLET BY MOUTH AT BEDTIME 90 tablet 3 03/07/2025 Active Comment on above: Take 1 tablet by adelaida th daily at bedtime. tamsulosin hydrochloride 0.4 mg oral capsule (20 sources) alpha-Adrenergic Josselyn Start: 02-04-20 19 take 2 capsules by mouth once daily tamsulosin ER (FLOMAX) 0.4 mg cap Take 0.8 mg by mouth once daily. 02/03/2019 Active Start: 02-03-2019 take 1 capsule by mo cox monett once daily tamsulosin ER (FLOMAX) 0.4 mg cap Take 0.4 mg by mouth once daily. 0 02/03/2019 Active Comment on above: Take 0.4 mg by mouth once daily. Take 0.8 mg by mouth once daily. triamcinolone acetonide 1 mg/ml topical cream (20 sources) Corticosteroid Start: 01-15-2024 End: 03-13-2024 triamcinolone acetonide (KENALOG) 0.1 % cream Indications: Rash Apply 1 application to affected area two times a day. 80 g 0 01/15/2024 03/13/2024 Discontinued take 2 spray(s) by inhalation on ce daily triamcinolone acetonide (NASACORT AQ) 55 mcg nasal inhaler Use 2 Sprays in the nose once daily. Active Comment on above: Use 2 Sprays in the nose once daily. Completed/Discontinued Medications Medication Drug Class(es) Dates Sig (Normalized) Sig (Original) benzonatate 100 mg oral capsule (2 sources) Non-narcotic Antitussive Start: 11-10-2022 take 2 capsules by mouth every eight hours as needed benzonatate (TESSALON PERLES) 100 mg capsule Indications: Upper respiratory infection with cough and congestion Take 2 capsules by mouth every 8 hours as needed. 60 capsule 0 11/10/2022 Active Comment on above: Take 2 capsules by m outh every 8 hours as needed. bisacodyl 5 mg delayed release oral tablet (3 sources) Stimulant Laxative Start: 09-24-2021 End: 03-02-2022 Bisacodyl (DULCOLAX) 5 mg tab Indications: Encounter for screening for malignant neoplasm of colon Use as directed for Miralax / Gatorade Bowel Prep Kit 4 tablet 0 09/24/2021 03/02/2022 Discontinued Comment on above: Use as directed for Miralax / Gatorade Bowel Prep Kit busPIRone hydrochloride 5 mg oral tablet (7 sources) Start: 12-10-2024 End: 03-12-2025 busPIRone (BUSPAR) 5 mg tablet Indications: Anxiety , Caregiver role strain TAKE 1 TABLET BY MOUTH 1-2 times DAILY NEEDED FOR ANXIETY 60 tablet 1 12/10/2024 03/12/2025 Discontinued Start: 06-19-2024 busPIRone (BUS PAR) 5 mg tablet Indications: Anxiety , Caregiver role strain Take 1 tab PO 1-2 times daily prn for anxiety 60 tablet 1 06/19/2024 Active gadobutrol (GADAVIST) inject ion 2 mL (1 source) Start: 03-14-2020 End: 03-14-2020 gadobutrol (GADAVIST) inject ion 2 mL Gatorade Sports Drink (3 sources) Start: 09-24-2021 End: 03-02-2022 Gatorade Sports Drink Indications: Encounter for screening for malignant neoplasm of colon Use as directed for Miralax / Gatorade Bowel Prep Kit 0 09/24/2021 03/02/2022 Discontinued Start: 09-24-2021 Gatorade Sport s Drink Indications: Encounter for screening for malignant neoplasm of colon Use as directed for Miralax / Gatorade Bowel Prep Kit 0 09/24/2021 Active smoking, exercise, hormones, sex and age. Serum or plasma cholesterol measurement (mass/volume)Ordered By: Bud Cool on 03-07-2025 Cholesterol [Mass/Vol] 157 mg/dL <201 [facility] Comment on above: Cholesterol level, D esirable <200 mg/dLBorderline high cholesterol 200-239 mg/dLHigh cholesterol >=240 mg/dLRecommendations of the NCEP Adult Treatment Panel for the following risk-cutoff thresholds for the [place] population. Serum or plasma urea nitroge n measurement (mass/volume)Ordered By: Bud Cool on 03-07-2025 Urea nitrogen [Mass/Vol] 17 mg/dL 4-19 [facility] Sodium levelOrdered By: Jean Paul Cool on 03-07-2025 Sodium [Moles/Vol] 137 mmol/L 133-145 [facility] Total proteinOrdered By: Domi Cool on 03-07-2025 Protein [Mass/Vol] 6.9 g/dL 5.9-8.4 [facility] Triglycerides measurementOrd ered By: Bud Cool on 03-07-2025 Triglyceride [Mass/Vol] 106 mg/dL <199 [facility] Comment on above: The drugs N-Acetylcy steine and Metamizole may falsely depress this assay. Normal range: <150 mg/dLBorderline High: 150-199 mg/dLHigh: 200-499 mg/dLVery High: >500 mg/dL White blood cell (WBC) count Ordered By: Bud Cool on 03-07-2025 WBC (Bld) [#/Vol] 5.2 10*3/uL 4.4-11.0 [facility] PSA, total screeningOrdered By: Otf Walker on 12-05-2024 Prostate Specific Antigen Screen 1.94 ng/mL 0.02-4.00 [facility] Comment on above: This test was perfor med using the [employer] tPSA method. Measured values of a patient sample can vary depending on the testing procedure used. PSA values determined on patient samples by different testing procedures cannot be used interchangeably. If there is a change in PSA assays while monitoring therapy, sequential testing should be performed to confirm baseline values. PSA,Total - Annual Screenon 12-05-2024 PSA,TOT SCREEN 1.94 ng/mL Normal 0.02-4.00 [facility] Comment on above: Result Comment: This test was performed using the [employer] tPSA method. Measured values of a patient??sample can vary depending on the testing procedure used. PSA values determined on patient samples by different testing procedures cannot be used interchangeably. If there is a change in PSA assays while monitoring therapy, sequential testing should be performed to confirm baseline values. Performed By: #### L [phone] #### [facility] Laboratory [facility] [place], [address] CNOVon 06-22-2024 CNOV Office Visit (FAMDNA) KENIA SWAIN ([id number]) 1945 M Date Time Provider Department 06/22/24 8:00 AM SHAYE ALVAREZDNA During your visit today, we recorded the following information about you: Pulse Blood pressure Weight Height 58/minute 150/68 90.3 kg 1.753 m Donald Nguyen MA 06/22/2024 8:34 AM Signed RSV Vaccine(1 - 1-dose 75+ series) Never done Advance Directive Discussion due on 08/15/2023 Shaye Alvarez APRN.ACQUISITION MANAGER 06/22/2024 8:34 AM Signed Patient presents with: Follow Up: BP Taking buspar, helping with anxiety, helped with recent mom visit, no med AE Home Bps 130/60s Last 3 Encounter BP Readings: Date: BP: 06/22/2024 150/68 06/19/2024 191/78 03/13/2024 142/84 PHYSICAL EXAMINATION: BP 150/68 Pulse (!) 58 Ht 175.3 cm (5' 9.02) Wt 90.3 kg (199 lb 1.2 oz) SpO2 100% BMI 29.38 kg/m? General appearance: healthy, alert, cooperative, pleasant, in no acute distress Heart: regular rate and rhythm, without murmur Lungs: clear to auscultation, without rales or wheeze, good air exchange ASSESSMENT/PLAN: 1. Elevated BP without diagnosis of hypertension - ICD9: 796.2, ICD10: R03.0 (primary diagnosis) Improved, home bp readings at goal Dental clearance signed - Encouraged dietary sodium restriction/DASH diet - Recommended regular aerobic exercise. - Recommend home blood pressure monitoring, to bring results in on next visit - Recheck in 8 weeks, sooner if needed. 2. Anxiety - ICD9: 300.00, ICD10: F41.9 3. Caregiver role strain - ICD9: [id number], ICD10: Z63.8 Buspar helpful, tolerating this well Continue to use prn F/u in 8 wks, sooner prn Shaye Paredes APRN.ACQUISITION MANAGER Allergies As of Date: 06/22/2024 (No Known Allergies) Date Reviewed: 06/22/2024 Reviewed by: Shaye Alvarez APRN.ACQUISITION MANAGER - Fully Assessed Reason for Visit: Follow Up [171] Cmt: BP Primary Visit Diagnosis:Elevated BP without diagnosis of hypertension [R03.0] Other Visit Diagnoses:Anxiety [F41.9] Caregiver role strain [Z63.8] Prescriptions as of 06/22/2024 - busPIRone (BUSPAR) 5 mg tablet Take 1 tab PO 1-2 times daily prn for anxiety - simvastatin (ZOCOR) 20 mg tablet Take 1 tablet by mouth daily at bedtime. - ibuprofen (ADVIL) 200 mg tablet Take 200 mg by mouth every 6 hours as needed. - cetirizine (ZYRTEC) 10 mg tablet Take 10 mg by mouth once daily. - triamcinolone acetonide (NASACORT AQ) 55 mcg nasal inhaler Use 2 Sprays in the nose once daily. - cholecalciferol (VITAMIN D3) 50 mcg (2,000 unit) tablet Take 2,000 Units by mouth once daily. - Magnesium 250 mg tab Take 250 mg by mouth once daily. - tamsulosin ER (FLOMAX) 0.4 mg cap Take 0.8 mg by mouth once daily. 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 Follow-up and Disposition History for Encounter Date Provider Department Center 06/22/2024 [id number] ALVAREZ Encounter Status:Closed by SHAYE ALVAREZ on 06/22/24 [facility] CNOVon 06-19-2024 CNOV Office Visit (TELLYDNA) KENIA SWAIN ([id number]) 1945 M Date Time Provider Department 06/19/24 8:20 AM SHAYE ALVAREZ During your visit today, we recorded the following information about you: Temperature Pulse Respiration Blood pressure 97 degrees 62/minute 16/minute 191/78 Weight Height 89.3 kg 1.753 m Xin Chavarria, CARRIE 06/19/2024 8:52 AM Signed RSV Vaccine(1 - 1-dose 75+ series) Never done Advance Directive Discussion due on 08/15/2023 Covid-19 Vaccine(2023- season) due on 04/15/2024 Shaye Alvarez APRN.ACQUISITION MANAGER 06/19/2024 8:52 AM Signed Patient presents with: Follow Up: BP clearance for dental Home Bps 140-130/70-60s Never high at home Went to dentist and it was 200s/80s, didn't feel anxious at this time Admits to lots of stress with caring for his mother Has to go see her this evening and knows it will be terrible Has financial stress as a result Unsure how to care for himself when this is a constant stressor Exercises, is in good physical condition Denies sx referable to elev bp Last 3 Encounter BP Readings: Date: BP: 06/19/2024 191/78 03/13/2024 142/84 01/15/2024 170/82 PHYSICAL EXAMINATION: BP 191/78 Pulse 62 Temp 36.1 ?C (97 ?F) Resp 16 Ht 175.3 cm (5' 9.02) Wt 89.3 kg (196 lb 13.9 oz) SpO2 99% BMI 29.06 kg/m? General appearance: healthy, alert, cooperative, pleasant, in no acute distress, anxious ASSESSMENT/PLAN: 1. Elevated BP without diagnosis of hypertension - ICD9: 796.2, ICD10: R03.0 (primary diagnosis) - Recommend home blood pressure monitoring, to bring results in on next visit - home readings consistently controlled Will address stress/anxiety and have close f/u to again reassess Start buspar, f/u in 3 days, will revisit dental clearance then 2. Anxiety - ICD9: 300.00, ICD10: F41.9 3. Caregiver role strain - ICD9: [id number], ICD10: Z63.8 Start buspar 1-2 times per day Close f/u as above - BUSPIRONE 5 MG TABLET Shaye Paredes APRN.ACQUISITION MANAGER Allergies As of Date: 06/19/2024 (No Known Allergies) Date Reviewed: 06/19/2024 Reviewed by: Shaye Alvarez APRN.ACQUISITION MANAGER - Fully Assessed Reason for Visit: Follow Up [171] Cmt: BP clearance for dental Primary Visit Diagnosis:Elevated BP without diagnosis of hypertension [R03.0] Other Visit Diagnoses:Anxiety [F41.9] Caregiver role strain [Z63.8] Order(s):busPIRone (BUSPAR) 5 mg tabletTake 1 tab PO 1-2 times daily prn for anxietyDisp: 60 tabletRfl: 1 Prescriptions as of 06/19/2024 - busPIRone (BUSPAR) 5 mg tablet Take 1 tab PO 1-2 times daily prn for anxiety - simvastatin (ZOCOR) 20 mg tablet Take 1 tablet by mouth daily at bedtime. - ibuprofen (ADVIL) 200 mg tablet Take 200 mg by mouth every 6 hours as needed. - cetirizine (ZYRTEC) 10 mg tablet Take 10 mg by mouth once daily. - triamcinolone acetonide (NASACORT AQ) 55 mcg nasal inhaler Use 2 Sprays in the nose once daily. - cholecalciferol (VITAMIN D3) 50 mcg (2,000 unit) tablet Take 2,000 Units by mouth once daily. - Magnesium 250 mg tab Take 250 mg by mouth once daily. - tamsulosin ER (FLOMAX) 0.4 mg cap Take 0.8 mg by mouth once daily. 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 Follow-up and Disposition History for Encounter Date Provider Department Center 06/19/2024 [id number] ALVAREZ [facility] Encounter Status:Closed by SHAYE ALVAREZ on 06/19/24 [facility] 05-22-2024 CNPN Telephone (HECTOR) KENIA SWAIN ([id number]) 1945 M Date Time Provider Department 05/22/24 BUD COOL During your visit today, we recorded the following information about you: Asim Banuelos Lydia M 05/22/2024 11:27 AM Signed KENIA is calling Bud Cool MD today to request Forms (Dentist- blood pressure) Patient went to see his dentist today and they turned him away, because of his blood pressure. He reported that the blood pressure was 140/60. His dentist gave him a form to have his PCP fill out and return before they will treat him. Does patient needs a visit? Please contact the patient to discuss. Patient has been identified by name and birthdate. Duration of symptoms: N/A Person calling: self Call patient at: at home [phone] (home) [phone] (cell) Was an appointment scheduled: No Closing statement: Edie Narayan PA-C 05/23/2024 10:18 AM Signed BP has been elevated the last few visits. Recommend appt with available provider. Thanks ANTIONETTE Colbert Mary Kay, RN 05/23/2024 11:00 AM Signed Discussed with patient. He agrees to OV. Going on 1 month long trip. Scheduled for week he returns. ABDIRASHID Barbosa Mary Kay, RN 05/23/2024 11:37 AM Signed Patient called back-needs to cancel that OV. Will call back to reschedule. Yadira Oseguera RN Allergies As of Date: 05/22/2024 (No Known Allergies) Date Reviewed: 03/13/2024 Reviewed by: Katy Coulter LPN - Fully Assessed Reason for Visit: Forms [913] Cmt: Dentist- blood pressure Prescriptions as of 05/23/2024 - simvastatin (ZOCOR) 20 mg tablet Take 1 tablet by mouth daily at bedtime. - ibuprofen (ADVIL) 200 mg tablet Take 200 mg by mouth every 6 hours as needed. - cetirizine (ZYRTEC) 10 mg tablet Take 10 mg by mouth once daily. - triamcinolone acetonide (NASACORT AQ) 55 mcg nasal inhaler Use 2 Sprays in the nose once daily. - cholecalciferol (VITAMIN D3) 50 mcg (2,000 unit) tablet Take 2,000 Units by mouth once daily. - Magnesium 250 mg tab Take 250 mg by mouth once daily. - tamsulosin ER (FLOMAX) 0.4 mg cap Take 0.8 mg by mouth once daily. 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 Values obtained with differentassay methods cannot be used interchangably.When changing PSA assays in the course of monitoring apatient, additional sequential testing should be carriedout to confirm baseline values. Absolute lymphocyte countOrd ered By: Bud Cool on 03-03-2023 Lymphocytes Auto (Unsp spec) [#/Vol] 1.37 10*3/uL 0.83-4.51 [facility] Basophil percentageOrdered B y: Bud Cool on 03-03-2023 Basophils/100 WBC (Bld) 1.4 % 0-1 [facility] Bilirubin [Mass/Vol] 0.50 mg/dL 0.20-1.00 [facility] Comment on above: For patients on eltr ombopag therapy, use of Dimension [place] TBIL is not recommended. Chloride [Moles/Vol] 109 mmol/L 98-107 [facility] Cholesterol [Mass/Vol] 131 mg/dL <200 [facility] Comment on above: <200 mg/dL Desirable 200-240 mg/dL Borderline >240 mg/dL High Risk Eosinophils/100 WBC (Bld) 6.0 % 0-5 [facility] Glucose [Mass/Vol] 138 mg/dL 74-106 [facility] Comment on above: Fasting Glucose resu lt greater than or equal to 126 mg/dL suggests DIABETES MELLITUS per A.D.A. criteria. Neutrophils (Bld) [#/Vol] 2.6 10*3/uL 2.0-7.7 [facility] Neutrophils/100 WBC (Bld) 52.5 % 47-70 [facility] Potassium [Moles/Vol] 4.0 mmol/L 3.5-5.1 [facility] Protein [Mass/Vol] 6.9 g/dL 6.4-8.2 [facility] Sodium [Moles/Vol] 139 mmol/L 136-145 [facility] Triglyceride [Mass/Vol] 83 mg/dL <199 [facility] Comment on above: The drugs N-Acetylcy steine and Metamizole may falsely depress this assay.Serum Triglycerides Reference Interval Normal <150 mg/dL Borderline high 150 - 199 mg/dL High 200 - 499 mg/dL Very High > or = 500 mg/dL WBC (Bld) [#/Vol] 4.9 10*3/uL 4.4-11.0 [facility] Blood erythrocytes count (nu mber/volume)Ordered By: Bud Cool on 03-03-2023 RBC (Bld) [#/Vol] 5.01 10*6/uL 4.6-6.2 [facility] Blood hemoglobin measurement (mass/volume)Ordered By: Bud Cool on 03-03-2023 Hemoglobin (Bld) [Mass/Vol] 15.1 g/dL 13.0-16.5 [facility] Blood lymphocytes/100 leukoc ytesOrdered By: Bud Cool on 03-03-2023 Lymphocytes/100 WBC (Bld) 28.2 % 19-41 [facility] Blood monocytes/100 leukocyt esOrdered By: Bud Cool on 03-03-2023 Monocytes/100 WBC (Bld) 11.7 % 0-10 [facility] Blood platelet mean volumeOr dered By: Bud Cool on 03-03-2023 Platelet mean volume (Bld) [Entitic vol] 9.9 fL 6.2-12.0 [facility] Determination of erythrocyte mean corpuscular volume (MCV)Ordered By: Bud Cool on 03-03-2023 MCV (RBC) [Entitic vol] 88.6 fL 80-94 [facility] Hematocrit Auto (Bld) [Volum e fraction]Ordered By: Bud Cool on 03-03-2023 Hematocrit (Bld) [Volume fraction] 44.4 % 40-54 [facility] Laboratory - Chemistry and C hemistry - challengeOrdered By: [place] Travon on 03-03-2023 ALP [Catalytic activity/Vol] 78 U/L 45-117 [facility] ALT [Catalytic activity/Vol] 27 U/L 16-61 [facility] CO2 [Moles/Vol] 25.0 mmol/L 21.0-32.0 [facility] Globulin (S) [Mass/Vol] 3.2 g/dL 2.2-4.2 [facility] Urea nitrogen/Creatinine [Mass ratio] 20.8 mg/mg 10-20 [facility] - Hematology and Cell countsOrdered By: Bud Cool on 03-03-2023 Erythrocyte distribution width (RBC) [Entitic vol] 41.4 fL 35.1-43.9 [facility] Erythrocyte distribution width (RBC) [Ratio] 12.8 % 11.6-14.6 [facility] Immature granulocytes/100 WBC (Bld) 0.200 % 0.0-0.9 [facility] Comment on above: IG% - Immature Granu locytes (promyelocytes, myelocytes and metamyelocytes) > 1% indicates that a LEFT SHIFT is Present. MCH (RBC) [Entitic mass] 30.1 pg 27.0-32.0 [facility] Nucleated RBC/100 WBC (Bld) [Ratio] 0 % 0-5 [facility] MCHC Auto (RBC) [Mass/Vol]Or dered By: Bud Cool on 03-03-2023 MCHC (RBC) [Mass/Vol] 34.0 g/dL 32-36 [facility] No Panel InformationOrdered By: Bud Cool on 03-03-2023 Estimated GFR (MDRD) Amer 98 mL/min >60 [facility] Comment on above: GFR Calc Estimated GFR (MDRD) Non-Af Amer 81 mL/min >60 [facility] Comment on above: Non- GFR Calc Platelets bldOrdered By: Domi Cool on 03-03-2023 Platelets (Bld) [#/Vol] 128 10*3/uL 150-450 [facility] Serum or plasma albumin dionicio urement (mass/volume)Ordered By: Bud Cool on 03-03-2023 Albumin [Mass/Vol] 3.7 g/dL 3.2-5.0 [facility] Serum or plasma albumin/glob ulin mass ratioOrdered By: Bud Cool on 03-03-2023 Albumin/Globulin [Mass ratio] 1.2 {ratio} 0.9-2.4 [facility] Serum or plasma calcium dionicio urement (mass/volume)Ordered By: Bud Cool on 03-03-2023 Calcium [Mass/Vol] 8.4 mg/dL 8.5-10.1 [facility] Serum or plasma cholesterol in HDL measurement (mass/volume)Ordered By: Bud Cool on 03-03-2023 Cholesterol in HDL [Mass/Vol] 47 mg/dL >40 [facility] Comment on above: The drugs N-Acetylcy steine and Metamizole may falsely depress this assay. Reference Range HDL <40 mg/dL Low HDL Cholesterol HDL >or= 60 mg/dL High HDL Cholesterol Serum or plasma cholesterol in VLDL measurement (mass/volume)Ordered By: Bud Cool on 03-03-2023 Cholesterol in VLDL [Mass/Vol] 17 mg/dL 5-40 [facility] Serum or plasma creatinine m easurement (mass/volume)Ordered By: Bud Cool on 03-03-2023 Creatinine [Mass/Vol] 0.96 mg/dL 0.70-1.30 [facility] Comment on above: The validity of the calculated GFR & GFRAA in patients over 70 years has not been determined. Clinical correlation is essential. Serum or plasma low density lipoprotein (LDL) cholesterol measurement (mass/volume)Ordered By: Bud Cool on 03-03-2023 Cholesterol in LDL [Mass/Vol] 67 mg/dL 0-130 [facility] Serum or plasma urea nitroge n measurement (mass/volume)Ordered By: Bud Cool on 03-03-2023 Urea nitrogen [Mass/Vol] 20 mg/dL 7-18 [facility] Thin prep Papanicolaou smear with manual screeningOrdered By: Budcullen Cool on 03-03-2023 Thin prep Papanicolaou smear with manual screening 17 U/L 15-37 [facility] Thin prep Papanicolaou smear with manual screening 5 5-15 [facility] Whole blood hemoglobin A1c/t otal hemoglobin ratio (mass fraction)Ordered By: Bud Cool on 03-03-2023 HbA1c (Bld) [Mass fraction] 5.9 % 3.8-5.6 [facility] Comment on above: Normal < 5.7 % Predi abetic 5.7 - 6.4 % Diabetic >or= 6.5 % Please note range changes. No Panel InformationOrdered By: REGGIE HANSON on 11-11-2022 Prostate Specific Antigen Total 1.58 ng/mL 0.0-4.0 [facility] Comment on above: This test was perfor med using the TPSA assay method for the[employer] chemistry system. Values obtained with differentassay methods cannot be used interchangably.When changing PSA assays in the course of monitoring apatient, additional sequential testing should be carriedout to confirm baseline values. MRI BRAIN WO/W IVCONon 09-03 [facility] Absolute lymphocyte counton 03-19-2022 Lymphocytes Auto (Unsp spec) [#/Vol] 0.89 10*3/uL 0.83-4.51 [facility] Work Phone: Basophil percentageon 2021 Basophil percentage 0 SEEN /hpf 0-5 [facility] Work Phone: [phone] Basophils/100 WBC (Bld) 0.5 % 0-1 [facility] Work Phone: [phone] Bilirubin [Mass/Vol] 0.90 mg/dL 0.20-1.00 [facility] Work Phone: [phone] Comment on above: For patients on eltr ombopag therapy, use of Dimension [place] TBIL is not recommended. Chloride [Moles/Vol] 103 mmol/L 98-107 [facility] Work Phone: [phone] Eosinophils/100 WBC (Bld) 1.1 % 0-5 [facility] Work Phone: [phone] Glucose [Mass/Vol] 132 mg/dL 74-106 [facility] Work Phone: Comment on above: Fasting Glucose resu lt greater than or equal to 126 mg/dL suggests DIABETES MELLITUS per A.D.A. criteria. Neutrophils (Bld) [#/Vol] 8.3 10*3/uL 2.0-7.7 [facility] Work Phone: Neutrophils/100 WBC (Bld) 78.9 % 47-70 [facility] Work Phone: Potassium [Moles/Vol] 3.7 mmol/L 3.5-5.1 [facility] Work Phone: Protein [Mass/Vol] 6.7 g/dL 6.4-8.2 [facility] Work Phone: [phone] Sodium [Moles/Vol] 133 mmol/L 136-145 [facility] Work Phone: [phone] WBC (Bld) [#/Vol] 10.5 10*3/uL 4.4-11.0 [facility] Work Phone: Bilirubin Test strip Ql (U)o n 03-19-2022 Bilirubin Ql (U) Negative Negative [facility] Work Phone: Blood erythrocytes count (nu mber/volume)on 03-19-2022 RBC (Bld) [#/Vol] 4.21 10*6/uL 4.6-6.2 [facility] Work Phone: Blood hemoglobin measurement (mass/volume)on 03-19-2022 Hemoglobin (Bld) [Mass/Vol] 13.0 g/dL 13.0-16.5 [facility] Work Phone: Blood lymphocytes/100 leukoc yteson 03-19-2022 Lymphocytes/100 WBC (Bld) 8.5 % 19-41 [facility] Work Phone: Blood monocytes/100 leukocyt eson 03-19-2022 Monocytes/100 WBC (Bld) 10.7 % 0-10 [facility] Work Phone: Blood platelet mean volumeon 03-19-2022 Platelet mean volume (Bld) [Entitic vol] 10.1 fL 6.2-12.0 [facility] Work Phone: Determination of erythrocyte mean corpuscular volume (MCV)on 03-19-2022 MCV (RBC) [Entitic vol] 87.6 fL 80-94 [facility] Work Phone: Hematocrit Auto (Bld) [Volum e fraction]on 03-19-2022 Hematocrit (Bld) [Volume fraction] 36.9 % 40-54 [facility] Work Phone: Ketones Test strip Ql (U)on 03-19-2022 Ketones Ql (U) 150 mg/dl Negative [facility] Work Phone: Comment on above: CRITICAL VALUE *[id number] Derian Moy.RESULTS READ BACK BY SAME. CONFIRM RESULT, CALL AND DOCUMENT ON REPORT. Laboratory - Chemistry and C hemistry - challengeon 03-19-2022 ALP [Catalytic activity/Vol] 71 U/L 45-117 [facility] Work Phone: ALT [Catalytic activity/Vol] 19 U/L 16-61 [facility] Work Phone: [phone] CO2 [Moles/Vol] 24.0 mmol/L 21.0-32.0 [facility] Work Phone: Globulin (S) [Mass/Vol] 3.4 g/dL 2.2-4.2 [facility] Work Phone: Lipase [Catalytic activity/Vol] 765 U/L 73-393 [facility] Work Phone: [phone] Urea nitrogen/Creatinine [Mass ratio] 17.0 mg/mg 10-20 [facility] Work Phone: Laboratory - Hematology and Cell countson 03-19-2022 Erythrocyte distribution width (RBC) [Entitic vol] 40.6 fL 35.1-43.9 [facility] Work Phone: Erythrocyte distribution width (RBC) [Ratio] 12.7 % 11.6-14.6 [facility] Work Phone: Immature granulocytes/100 WBC (Bld) 0.300 % 0.0-0.9 [facility] Work Phone: Comment on above: IG% - Immature Granu locytes (promyelocytes, myelocytes and metamyelocytes) > 1% indicates that a LEFT SHIFT is Present. MCH (RBC) [Entitic mass] 30.9 pg 27.0-32.0 [facility] Work Phone: Nucleated RBC/100 WBC (Bld) [Ratio] 0 % 0-5 [facility] Work Phone: MCHC Auto (RBC) [Mass/Vol]on 03-19-2022 MCHC (RBC) [Mass/Vol] 35.2 g/dL 32-36 [facility] Work Phone: Mucus LM Ql (Urine sed)on Mucus Ql (Urine sed) 0 SEEN /hpf [facility] Work Phone: Nitrite Test strip Ql (U)on 03-19-2022 Nitrite Ql (U) Negative Negative [facility] Work Phone: No Panel Informationon 03-19 Estimated Creatinine Clearance Calc 72.53 ml/min [facility] Work Phone: Estimated GFR (MDRD) Amer 108 mL/min >60 [facility] Work Phone: Comment on above: GFR Calc Estimated GFR (MDRD) Non-Af Amer 89 mL/min >60 [facility] Work Phone: Comment on above: Non- GFR Calc Troponin I High Sensitivity 4 pg/mL 3.0-78.0 [facility] Work Phone: Comment on above: Please Note: New [place]ie t Units and Gender Specific Reference Ranges. For more information see Policy Stat Procedure [place] High Sensitivity Troponin (TNIH) and attachments. Platelets bldon 03-19-2022 Platelets (Bld) [#/Vol] 134 10*3/uL 150-450 [facility] Work Phone: Protein Test strip Ql (U)on 03-19-2022 Protein Ql (U) 15 mg/dl Negative [facility] Work Phone: Serum or plasma albumin dionicio urement (mass/volume)on 03-19-2022 Albumin [Mass/Vol] 3.3 g/dL 3.2-5.0 [facility] Work Phone: Serum or plasma albumin/glob ulin mass ratioon 03-19-2022 Albumin/Globulin [Mass ratio] 1.0 {ratio} 0.9-2.4 [facility] Work Phone: Serum or plasma calcium dionicio urement (mass/volume)on 03-19-2022 Calcium [Mass/Vol] 8.3 mg/dL 8.5-10.1 [facility] Work Phone: Serum or plasma creatinine m easurement (mass/volume)on 03-19-2022 Creatinine [Mass/Vol] 0.88 mg/dL 0.70-1.30 [facility] Work Phone: Comment on above: The validity of the calculated GFR & GFRAA in patients over 70 years has not been determined. Clinical correlation is essential. Serum or plasma urea nitroge n measurement (mass/volume)on 03-19-2022 Urea nitrogen [Mass/Vol] 15 mg/dL 7-18 [facility] Work Phone: Squamous epithelial cells de tection in urine sediment by light microscopyon 03-19-2022 Epithelial cells.squamous LM Ql (Urine sed) 0 SEEN /hpf 0-5 [facility] Work Phone: Thin prep Papanicolaou smear with manual screeningon 03-19-2022 Thin prep Papanicolaou smear with manual screening 12 U/L 15-37 [facility] Work Phone: Thin prep Papanicolaou smear with manual screening 6 5-15 [facility] Work Phone: Urine blood detectionon RBC Ql (U) 25 /ul Negative [facility] Work Phone: RBC Ql (U) 0 SEEN /hpf 0-5 [facility] Work Phone: Urine clarityon 03-19-2022 Clarity (U) Clear Clear [facility] Work Phone: Urine color determinationon 03-19-2022 Color (U) Yellow Yellow [facility] Work Phone: Urine glucose detectionon Glucose Ql (U) Normal mg/dl Normal [facility] Work Phone: Urine leukocyte esterase det ection by dipstickon 03-19-2022 Leukocyte esterase Test strip Ql (U) Negative Negative [facility] Work Phone: Urine pHon 03-19-2022 pH (U) 6.0 [pH] 5.0 - 8.0 [facility] Work Phone: Urine sediment bacteria coun t by microscopy (number/high power field)on 03-19-2022 Bacteria LM.HPF (Urine sed) [#/Area] 0 /[HPF] None Seen [facility] Work Phone: Urine specific gravity measu rementon 03-19-2022 Specific gravity (U) [Rel density] 1.015 1.002-1.030 [facility] Work Phone: Urobilinogen Auto test strip Ql (U)on 03-19-2022 Urobilinogen Ql (U) Normal mg/dl Normal [facility] Work Phone: Absolute lymphocyte counton 02-24-2022 Lymphocytes Auto (Unsp spec) [#/Vol] 1.49 10*3/uL 0.83-4.51 [facility] Work Phone: Basophil percentageon 2021 Basophils/100 WBC (Bld) 1.2 % 0-1 [facility] Work Phone: Bilirubin [Mass/Vol] 0.40 mg/dL 0.20-1.00 [facility] Work Phone: Comment on above: For patients on eltr ombopag therapy, use of Dimension [place] TBIL is not recommended. Chloride [Moles/Vol] 108 mmol/L 98-107 [facility] Work Phone: Cholesterol [Mass/Vol] 156 mg/dL <200 [facility] Work Phone: Comment on above: <200 mg/dL Desirable 200-240 mg/dL Borderline >240 mg/dL High Risk Eosinophils/100 WBC (Bld) 3.7 % 0-5 [facility] Work Phone: Glucose [Mass/Vol] 139 mg/dL 74-106 [facility] Work Phone: Comment on above: Fasting Glucose resu lt greater than or equal to 126 mg/dL suggests DIABETES MELLITUS per A.D.A. criteria. Neutrophils (Bld) [#/Vol] 3.5 10*3/uL 2.0-7.7 [facility] Work Phone: Neutrophils/100 WBC (Bld) 59.0 % 47-70 [facility] Work Phone: Potassium [Moles/Vol] 4.0 mmol/L 3.5-5.1 [facility] Work Phone: Protein [Mass/Vol] 6.9 g/dL 6.4-8.2 [facility] Work Phone: Sodium [Moles/Vol] 138 mmol/L 136-145 [facility] Work Phone: Triglyceride [Mass/Vol] 95 mg/dL <199 [facility] Work Phone: Comment on above: The drugs N-Acetylcy steine and Metamizole may falsely depress this assay.Serum Triglycerides Reference Interval Normal <150 mg/dL Borderline high 150 - 199 mg/dL High 200 - 499 mg/dL Very High > or = 500 mg/dL WBC (Bld) [#/Vol] 5.9 10*3/uL 4.4-11.0 [facility] Work Phone: Blood erythrocytes count (nu mber/volume)on 02-24-2022 RBC (Bld) [#/Vol] 5.16 10*6/uL 4.6-6.2 [facility] Work Phone: Blood hemoglobin measurement (mass/volume)on 02-24-2022 Hemoglobin (Bld) [Mass/Vol] 16.0 g/dL 13.0-16.5 [facility] Work Phone: Blood lymphocytes/100 leukoc yteson 02-24-2022 Lymphocytes/100 WBC (Bld) 25.2 % 19-41 [facility] Work Phone: Blood monocytes/100 leukocyt eson 02-24-2022 Monocytes/100 WBC (Bld) 10.7 % 0-10 [facility] Work Phone: Blood platelet mean volumeon 02-24-2022 Platelet mean volume (Bld) [Entitic vol] 9.9 fL 6.2-12.0 [facility] Work Phone: Determination of erythrocyte mean corpuscular volume (MCV)on 02-24-2022 MCV (RBC) [Entitic vol] 87.8 fL 80-94 [facility] Work Phone: Hematocrit Auto (Bld) [Volum e fraction]on 02-24-2022 Hematocrit (Bld) [Volume fraction] 45.3 % 40-54 [facility] Work Phone: Laboratory - Chemistry and C hemistry - challengeon 02-24-2022 ALP [Catalytic activity/Vol] 76 U/L 45-117 [facility] Work Phone: ALT [Catalytic activity/Vol] 29 U/L 16-61 [facility] Work Phone: [phone] CO2 [Moles/Vol] 26.0 mmol/L 21.0-32.0 [facility] Work Phone: Globulin (S) [Mass/Vol] 3.1 g/dL 2.2-4.2 [facility] Work Phone: Urea nitrogen/Creatinine [Mass ratio] 21.9 mg/mg 10-20 [facility] Work Phone: Laboratory - Hematology and Cell countson 02-24-2022 Erythrocyte distribution width (RBC) [Entitic vol] 40.4 fL 35.1-43.9 [facility] Work Phone: Erythrocyte distribution width (RBC) [Ratio] 12.5 % 11.6-14.6 [facility] Work Phone: Immature granulocytes/100 WBC (Bld) 0.200 % 0.0-0.9 [facility] Work Phone: Comment on above: IG% - Immature Granu locytes (promyelocytes, myelocytes and metamyelocytes) > 1% indicates that a LEFT SHIFT is Present. MCH (RBC) [Entitic mass] 31.0 pg 27.0-32.0 [facility] Work Phone: Nucleated RBC/100 WBC (Bld) [Ratio] 0 % 0-5 [facility] Work Phone: MCHC Auto (RBC) [Mass/Vol]on 02-24-2022 MCHC (RBC) [Mass/Vol] 35.3 g/dL 32-36 [facility] Work Phone: No Panel Informationon 02-24 Estimated GFR (MDRD) Amer 104 mL/min >60 [facility] Work Phone: Comment on above: GFR Calc Estimated GFR (MDRD) Non-Af Amer 86 mL/min >60 [facility] Work Phone: Comment on above: Non- GFR Calc Platelets bldon 02-24-2022 Platelets (Bld) [#/Vol] 133 10*3/uL 150-450 [facility] Work Phone: Serum or plasma albumin dionicio urement (mass/volume)on 02-24-2022 Albumin [Mass/Vol] 3.8 g/dL 3.2-5.0 [facility] Work Phone: Serum or plasma albumin/glob ulin mass ratioon 02-24-2022 Albumin/Globulin [Mass ratio] 1.2 {ratio} 0.9-2.4 [facility] Work Phone: Serum or plasma calcium dionicio urement (mass/volume)on 02-24-2022 Calcium [Mass/Vol] 8.6 mg/dL 8.5-10.1 [facility] Work Phone: Serum or plasma cholesterol in HDL measurement (mass/volume)on 02-24-2022 Cholesterol in HDL [Mass/Vol] 43 mg/dL >40 [facility] Work Phone: Comment on above: The drugs N-Acetylcy steine and Metamizole may falsely depress this assay. Reference Range HDL <40 mg/dL Low HDL Cholesterol HDL >or= 60 mg/dL High HDL Cholesterol Serum or plasma cholesterol in VLDL measurement (mass/volume)on 02-24-2022 Cholesterol in VLDL [Mass/Vol] 19 mg/dL 5-40 [facility] Work Phone: Serum or plasma creatinine m easurement (mass/volume)on 02-24-2022 Creatinine [Mass/Vol] 0.91 mg/dL 0.70-1.30 [facility] Work Phone: Comment on above: The validity of the calculated GFR & GFRAA in patients over 70 years has not been determined. Clinical correlation is essential. Serum or plasma low density lipoprotein (LDL) cholesterol measurement (mass/volume)on 02-24-2022 Cholesterol in LDL [Mass/Vol] 94 mg/dL 0-130 [facility] Work Phone: Serum or plasma urea nitroge n measurement (mass/volume)on 02-24-2022 Urea nitrogen [Mass/Vol] 20 mg/dL 7-18 [facility] Work Phone: Thin prep Papanicolaou smear with manual screeningon 02-24-2022 Thin prep Papanicolaou smear with manual screening 14 U/L 15-37 [facility] Work Phone: Thin prep Papanicolaou smear with manual screening 4 5-15 [facility] Work Phone: Whole blood hemoglobin A1c/t otal hemoglobin ratio (mass fraction)on 02-24-2022 HbA1c (Bld) [Mass fraction] 6.0 % 3.8-5.6 [facility] Work Phone: Comment on above: Normal < 5.7 % Predi abetic 5.7 - 6.4 % Diabetic >or= 6.5 % Please note range changes. No Panel Informationon 11-04 Prostate Specific Antigen Total 1.88 ng/mL 0.0-4.0 [facility] Work Phone: Comment on above: This test was perfor med using the TPSA assay method for the[employer] chemistry system. Values obtained with differentassay methods cannot be used interchangably.When changing PSA assays in the course of monitoring apatient, additional sequential testing should be carriedout to confirm baseline values. FL ARTHR/ASP/INJ MAJOR JT/BU RSA LT WO USon 03-14-2020 Patient Name: KENIA SWAIN ---Fluoroscopy--- Exam Date/Time 03/14/2020 12:51:54 EDT Exam RF Arthrogram Aspir Inj Paul Jt Left Ordering Physician FOREIGN FLORES Accession Number [id number] CTP4 Codes 15438 (), 59376 (RF FLUORO GUIDANCE NEEDLE PLACEMENT), 15062 (RF INJ SHOULDER ARTHRO LT) Reason For Exam complete tear of left rotator cuff, h/o left shoulder surgery Report Examination: Fluoroscopic guided left shoulder arthrogram and gadolinium injection Clinical Indication: Left shoulder pain, history of shoulder surgery, concern for rotator cuff tear Comparison: None Findings: Informed written consent was obtained from the patient after the risks, benefits, and alternatives to diagnostic joint injection were adequately explained and all questions were answered. This was explained by Dr. Sylvain Miramontes. Patient was placed in supine position. 0.5 percent ropivacaine was used for local anesthesia. Access was then obtained under direct fluoroscopic guidance into the left glenohumeral joint. Two metal conical surgical anchors seen along the greater tuberosity A solution of 1 to 200 IV gadolinium Gadavist (<1ml), 10 mL of Isovue-200, 3 mL of ropivacaine, and 7 mL of saline was injected to distend the joint space. Total fluoroscopic time 0.6 minutes. Three stored fluoroscopic images obtained. No gross contrast extravasation into the subacromial subdeltoid bursa to suggest full-thickness rotator cuff tear. Patient experienced equivocal postprocedural pain relief, no significant pain today, pain is intermittent. No immediate complications were appreciated. Impression: Status post left glenohumeral joint diagnostic gadolinium injection for subsequent MR arthrography. Report Dictated on --- Final --- Dictated: 03/14/2020 3:32 pm Dictating Physician: MD MIRAMONTES ANTHONY J Signed Date and Time: 03/14/2020 3:34 pm Signed by: MD MIRAMONTES ANTHONY J Transcribed Date and Time: 03/14/2020 3:32 [facility] [place], [place] Incoming Radiology Results From [facility] - 03/14/2020 3:36 PM EDT Patient Name: KENIA SWAIN ---Fluoroscopy--- Exam Date/Time 03/14/2020 12:51:54 EDT Exam RF Arthrogram Aspir Inj Paul Jt Left Ordering Physician FOREIGN FLORES Accession Number [id number] CTP4 Codes 13224 (), 03974 (RF FLUORO GUIDANCE NEEDLE PLACEMENT), [id number] (RF INJ SHOULDER ARTHRO LT) Reason For Exam complete tear of left rotator cuff, h/o left shoulder surgery Report Examination: Fluoroscopic guided left shoulder arthrogram and gadolinium injection Clinical Indication: Left shoulder pain, history of shoulder surgery, concern for rotator cuff tear Comparison: None Findings: Informed written consent was obtained from the patient after the risks, benefits, and alternatives to diagnostic joint injection were adequately explained and all questions were answered. This was explained by Dr. Sylvain Miramontes. Patient was placed in supine position. 0.5 percent ropivacaine was used for local anesthesia. Access was then obtained under direct fluoroscopic guidance into the left glenohumeral joint. Two metal conical surgical anchors seen along the greater tuberosity A solution of 1 to 200 IV gadolinium Gadavist (<1ml), 10 mL of Isovue-200, 3 mL of ropivacaine, and 7 mL of saline was injected to distend the joint space. Total fluoroscopic time 0.6 minutes. Three stored fluoroscopic images obtained. No gross contrast extravasation into the subacromial subdeltoid bursa to suggest full-thickness rotator cuff tear. Patient experienced equivocal postprocedural pain relief, no significant pain today, pain is intermittent. No immediate complications were appreciated. Impression: Status post left glenohumeral joint diagnostic gadolinium injection for subsequent MR arthrography. Report Dictated on --- Final --- Dictated: 03/14/2020 3:32 pm Dictating Physician: MD MIRAMONTES ANTHONY J Signed Date and Time: 03/14/2020 3:34 pm Signed by: MD MIRAMONTES ANTHONY J Transcribed Date and Time: 03/14/2020 3:32 [place], [place] MRI UPPER EXTREMITY LEFT [facility] 03-14-2020 Patient Name: KENIA SWAIN ---MRI--- Exam Date/Time 03/14/2020 13:28:28 EDT Exam MRI Up Ext Joint w/ Contrast Left Ordering Physician FOREIGN FLORES Accession Number [id number] CPT4 Codes 40168 () Reason For Exam complete tear of left rotator cuff Report Examination: MRI arthrogram left shoulder Clinical Indication: complete tear of left rotator cuff, shoulder pain, history of rotator cuff repair Comparison: Conventional arthrogram 03/14/2020, MRI 04/25/2012 Findings: Multiplanar multisequence MRI images were obtained through the left shoulder after prior administration of 1 to 200 intra-articular Magnevist gadolinium (<1ml). Abducted externally rotated, ABER view was also obtained. Susceptibility artifact from two metal conical sutural anchors seen along the greater humeral tuberosity at the anterior supraspinatus rotator cuff insertion in the region of prior repair. No osseous contusion or fracture. No avascular necrosis. Acromioclavicular joint demonstrates mild degenerative hypertrophy with trace degenerative edema. There is slight volume reduction along the undersurface of the acromion possible acromioplasty. There is mild type III morphology with small anterior hook osteophyte. Persistent mild supraspinatus impingement. There is trace subacromial subdeltoid bursitis. Long head biceps demonstrates tendinopathy and slight synovial thickening suggesting tenosynovitis. There is low-grade partial-thickness tear along the articular surface and some slight split tear at the proximal bicipital groove series 4 image 20. The biceps is slightly medially subluxed at the chrissie, with bowstringing superiorly. This is not completely dislocated. Subscapularis demonstrates partial-thickness articular sided tear of the distal superior fibers thought to measure 0.6 cm. Tear is predominantly interstitial and allows for medial subluxation of the biceps. There is minimal focal enthesopathy at the insertion. There is mild supraspinatus tendon thinning and tendinopathy but no evidence of residual or recurrent tear. No significant muscular atrophy. Glenohumeral articular cartilage demonstrates mild cartilage thinning. No focal or full thickness defect. No productive or erosive arthropathy. Inferior capsule demonstrates no thickening or tear. Impression: 1. Postsurgical changes consistent with prior supraspinatus rotator cuff repair. There is mild tendinopathy and trace tendon thinning in the region of repair anterior to mid supraspinatus without evidence of recurrent supraspinatus tear. 2. Approximately 0.6 cm low to intermediate grade partial-thickness interstitial tear of the distal superior subscapularis. Finding allows for medial subluxation of the long head biceps. 3. Partial thickness low-grade surface and small split tear of the biceps at the biceps chrissie and proximal bicipital groove with partial medial subluxation. Findings superimposed on tendinopathy and mild tendon tenosynovitis. Findings a likely etiology for any anterior shoulder pain. There is no full-thickness tear component or significant retraction. Report Dictated on --- Final --- Dictated: 03/14/2020 3:44 pm Dictating Physician: MD MIRAMONTES ANTHONY J Signed Date and Time: 03/14/2020 3:50 pm Signed by: MD MIRAMONTES ANTHONY J Transcribed Date and Time: 03/14/2020 3:44 [place], [place], [facility] Incoming Radiology Results From [facility] - 03/14/2020 3:52 PM EDT Patient Name: KENIA SWAIN ---MRI--- Exam Date/Time 03/14/2020 13:28:28 EDT Exam MRI Up Ext Joint w/ Contrast Left Ordering Physician FOREIGN FLORES Accession Number [id number] CPT4 Codes 85131 () Reason For Exam complete tear of left rotator cuff Report Examination: MRI arthrogram left shoulder Clinical Indication: complete tear of left rotator cuff, shoulder pain, history of rotator cuff repair Comparison: Conventional arthrogram 03/14/2020, MRI 04/25/2012 Findings: Multiplanar multisequence MRI images were obtained through the left shoulder after prior administration of 1 to 200 intra-articular Magnevist gadolinium (<1ml). Abducted externally rotated, ABER view was also obtained. Susceptibility artifact from two metal conical sutural anchors seen along the greater humeral tuberosity at the anterior supraspinatus rotator cuff insertion in the region of prior repair. No osseous contusion or fracture. No avascular necrosis. Acromioclavicular joint demonstrates mild degenerative hypertrophy with trace degenerative edema. There is slight volume reduction along the undersurface of the acromion possible acromioplasty. There is mild type III morphology with small anterior hook osteophyte. Persistent mild supraspinatus impingement. There is trace subacromial subdeltoid bursitis. Long head biceps demonstrates tendinopathy and slight synovial thickening suggesting tenosynovitis. There is low-grade partial-thickness tear along the articular surface and some slight split tear at the proximal bicipital groove series 4 image 20. The biceps is slightly medially subluxed at the chrissie, with bowstringing superiorly. This is not completely dislocated. Subscapularis demonstrates partial-thickness articular sided tear of the distal superior fibers thought to measure 0.6 cm. Tear is predominantly interstitial and allows for medial subluxation of the biceps. There is minimal focal enthesopathy at the insertion. There is mild supraspinatus tendon thinning and tendinopathy but no evidence of residual or recurrent tear. No significant muscular atrophy. Glenohumeral articular cartilage demonstrates mild cartilage thinning. No focal or full thickness defect. No productive or erosive arthropathy. Inferior capsule demonstrates no thickening or tear. Impression: 1. Postsurgical changes consistent with prior supraspinatus rotator cuff repair. There is mild tendinopathy and trace tendon thinning in the region of repair anterior to mid supraspinatus without evidence of recurrent supraspinatus tear. 2. Approximately 0.6 cm low to intermediate grade partial-thickness interstitial tear of the distal superior subscapularis. Finding allows for medial subluxation of the long head biceps. 3. Partial thickness low-grade surface and small split tear of the biceps at the biceps chrissie and proximal bicipital groove with partial medial subluxation. Findings superimposed on tendinopathy and mild tendon tenosynovitis. Findings a likely etiology for any anterior shoulder pain. There is no full-thickness tear component or significant retraction. Report Dictated on --- Final --- Dictated: 03/14/2020 3:44 pm Dictating Physician: MD MIRAMONTES ANTHONY J Signed Date and Time: 03/14/2020 3:50 pm Signed by: MD MIRAMONTES ANTHONY J Transcribed Date and Time: 03/14/2020 3:44 [place], [place] MRI Up Ext Joint w/ Contrast Lefton 03-14-2020 MRI Up Ext Joint w/ Contrast Left Patient Name: KENIA SWAIN MRI Exam Date/Time 03/14/2020 13:28:28 EDT Exam MRI Up Ext Joint w/ Contrast Left Ordering Physician FOREIGN FLORES Accession Number [id number] CPT4 Codes 15665 () Reason For Exam complete tear of left rotator cuff Report Examination: MRI arthrogram left shoulder Clinical Indication: complete tear of left rotator cuff, shoulder pain, history of rotator cuff repair Comparison: Conventional arthrogram 03/14/2020, MRI 04/25/2012 Findings: Multiplanar multisequence MRI images were obtained through the left shoulder after prior administration of 1 to 200 intra-articular Magnevist gadolinium (<1ml). Abducted externally rotated, ABER view was also obtained. Susceptibility artifact from two metal conical sutural anchors seen along the greater humeral tuberosity at the anterior supraspinatus rotator cuff insertion in the region of prior repair. No osseous contusion or fracture. No avascular necrosis. Acromioclavicular joint demonstrates mild degenerative hypertrophy with trace degenerative edema. There is slight volume reduction along the undersurface of the acromion possible acromioplasty. There is mild type III morphology with small anterior hook osteophyte. Persistent mild supraspinatus impingement. There is trace subacromial subdeltoid bursitis. Long head biceps demonstrates tendinopathy and slight synovial thickening suggesting tenosynovitis. There is low-grade partial-thickness tear along the articular surface and some slight split tear at the proximal bicipital groove series 4 image 20. The biceps is slightly medially subluxed at the chrissie, with bowstringing superiorly. This is not completely dislocated. Subscapularis demonstrates partial-thickness articular sided tear of the distal superior fibers thought to measure 0.6 cm. Tear is predominantly interstitial and allows for medial subluxation of the biceps. There is minimal focal enthesopathy at the insertion. There is mild supraspinatus tendon thinning and tendinopathy but no evidence of residual or recurrent tear. No significant muscular atrophy. Glenohumeral articular cartilage demonstrates mild cartilage thinning. No focal or full thickness defect. No productive or erosive arthropathy. Inferior capsule demonstrates no thickening or tear. Impression: 1. Postsurgical changes consistent with prior supraspinatus rotator cuff repair. There is mild tendinopathy and trace tendon thinning in the region of repair anterior to mid supraspinatus without evidence of recurrent supraspinatus tear. 2. Approximately 0.6 cm low to intermediate grade partial-thickness interstitial tear of the distal superior subscapularis. Finding allows for medial subluxation of the long head biceps. 3. Partial thickness low-grade surface and small split tear of the biceps at the biceps chrissie and proximal bicipital groove with partial medial subluxation. Findings superimposed on tendinopathy and mild tendon tenosynovitis. Findings a likely etiology for any anterior shoulder pain. There is no full-thickness tear component or significant retraction. Report Dictated on Final Dictated: 03/14/2020 3:44 pm Dictating Physician: MD MIRAMONTES ANTHONY J Signed Date and Time: 03/14/2020 3:50 pm Signed by: MD MIRAMONTES ANTHONY J Transcribed Date and Time: 03/14/2020 3:44 Normal [facility] RF Arthrogram Aspir Inj Paul Jt Lefton 03-14-2020 RF Arthrogram Aspir Inj Paul Jt Left Patient Name: KENIA SWAIN Fluoroscopy Exam Date/Time 03/14/2020 12:51:54 EDT Exam RF Arthrogram Aspir Inj Paul Jt Left Ordering Physician FOREIGN FLORES Accession Number [id number] CTP4 Codes 09929 (), [id number] (RF FLUORO GUIDANCE NEEDLE PLACEMENT), [id number] (RF INJ SHOULDER ARTHRO LT) Reason For Exam complete tear of left rotator cuff, h/o left shoulder surgery Report Examination: Fluoroscopic guided left shoulder arthrogram and gadolinium injection Clinical Indication: Left shoulder pain, history of shoulder surgery, concern for rotator cuff tear Comparison: None Findings: Informed written consent was obtained from the patient after the risks, benefits, and alternatives to diagnostic joint injection were adequately explained and all questions were answered. This was explained by Dr. Sylvain Miramontes. Patient was placed in supine position. 0.5 percent ropivacaine was used for local anesthesia. Access was then obtained under direct fluoroscopic guidance into the left glenohumeral joint. Two metal conical surgical anchors seen along the greater tuberosity A solution of 1 to 200 IV gadolinium Gadavist (<1ml), 10 mL of Isovue-200, 3 mL of ropivacaine, and 7 mL of saline was injected to distend the joint space. Total fluoroscopic time 0.6 minutes. Three stored fluoroscopic images obtained. No gross contrast extravasation into the subacromial subdeltoid bursa to suggest full-thickness rotator cuff tear. Patient experienced equivocal postprocedural pain relief, no significant pain today, pain is intermittent. No immediate complications were appreciated. Impression: Status post left glenohumeral joint diagnostic gadolinium injection for subsequent MR arthrography. Report Dictated on Final Dictated: 03/14/2020 3:32 pm Dictating Physician: MD MIRAMONTES ANTHONY J Signed Date and Time: 03/14/2020 3:34 pm Signed by: MD MIRAMONTES ANTHONY J Transcribed Date and Time: 03/14/2020 3:32 Normal [facility] Vital Signs Date Time Vital Sign Value Performing Clinician Facility 03-12-2025 08:03-0400 Body height 175.3 cm Bud Cool MD Work Phone: [facility] 03-12-2025 08:03-0400 Body mass index (BMI) [Ratio] 29.29 kg/m2 Bud Cool MD Work Phone: [facility] 03-12-2025 08:03-0400 Body temperature 97.5 [degF] Bud Cool MD Work Phone: [facility] 03-12-2025 08:03-0400 Body weight 90 kg Bud Cool MD Work Phone: [facility] 03-12-2025 08:03-0400 Diastolic blood pressure 74 mm[Hg] Bud Cool MD Work Phone: [facility] 03-12-2025 08:03-0400 Heart rate 58 /min Bud Cool MD Work Phone: [facility] 03-12-2025 08:03-0400 SaO2% (BldA) [Mass fraction] 97 % Bud Cool MD Work Phone: [facility] 03-12-2025 08:03-0400 Systolic blood pressure 140 mm[Hg] Bud Cool MD Work Phone: [facility] 06-22-2024 08:28-0500 Diastolic blood pressure 68 mm[Hg] Shaye Paredes HEEL SEATER.ACQUISITION MANAGER Work Phone: [facility] 06-22-2024 08:28-0500 Systolic blood pressure 150 mm[Hg] Shaye Paredes HEEL SEATER.ACQUISITION MANAGER Work Phone: [facility] 06-22-2024 08:07-0500 Heart rate 58 /min Shaye Paredes HEEL SEATER.ACQUISITION MANAGER Work Phone: [facility] 06-22-2024 08:06-0500 Body height 175.3 cm Shaye Paredes HEEL SEATER.ACQUISITION MANAGER Work Phone: [facility] 06-22-2024 08:06-0500 Body mass index (BMI) [Ratio] 29.38 kg/m2 Shaye Paredes HEEL SEATER.ACQUISITION MANAGER Work Phone: [facility] 06-22-2024 08:06-0500 Body weight 90.3 kg Shaye Paredes APRN.ACQUISITION MANAGER Work Phone: [facility] 06-22-2024 08:06-0500 SaO2% (BldA) [Mass fraction] 100 % Shaye Paredes APRN.ACQUISITION MANAGER Work Phone: [facility] 06-19-2024 08:25-0500 Diastolic blood pressure 78 mm[Hg] Shaye Paredes HEEL SEATER.ACQUISITION MANAGER Work Phone: [facility] 06-19-2024 08:25-0500 Heart rate 62 /min Shaye Paredes APRN.ACQUISITION MANAGER Work Phone: [facility] 06-19-2024 08:25-0500 Systolic blood pressure 191 mm[Hg] Shaye Paredes APRN.ACQUISITION MANAGER Work Phone: [facility] 06-19-2024 08:20-0500 Body height 175.3 cm Shaye Paredes HEEL SEATER.ACQUISITION MANAGER Work Phone: [facility] 06-19-2024 08:20-0500 Body mass index (BMI) [Ratio] 29.06 kg/m2 Shaye Devaughnjay Paredes HEEL SEATER.ACQUISITION MANAGER Work Phone: [facility] 06-19-2024 08:20-0500 Body temperature 97 [degF] Shaye Devaughnjay Paredes APRN.ACQUISITION MANAGER Work Phone: [facility] 06-19-2024 08:20-0500 Body weight 89.3 kg Shaye Devaughnjay Paredes APRN.ACQUISITION MANAGER Work Phone: [facility] 06-19-2024 08:20-0500 Respiratory rate 16 /min Shaye Devaughnjay Paredes APRN.ACQUISITION MANAGER Work Phone: [facility] 06-19-2024 08:20-0500 SaO2% (BldA) [Mass fraction] 99 % Shaye Devaughnjay Paredes APRN.ACQUISITION MANAGER Work Phone: [facility] 03-13-2024 08:07-0400 Body height 175.3 cm Bud Cool MD Work Phone: [facility] 03-13-2024 08:07-0400 Body mass index (BMI) [Ratio] 29.32 kg/m2 Bud Cool MD Work Phone: [facility] 03-13-2024 08:07-0400 Body temperature 97.59 [degF] Bud Cool MD Work Phone: [facility] 03-13-2024 08:07-0400 Body weight 90.1 kg Bud Cool MD Work Phone: [facility] 03-13-2024 08:07-0400 Diastolic blood pressure 84 mm[Hg] Bud Cool MD Work Phone: [facility] 03-13-2024 08:07-0400 Heart rate 60 /min Bud Cool MD Work Phone: [facility] 03-13-2024 08:07-0400 SaO2% (BldA) [Mass fraction] 99 % Bud Cool MD Work Phone: [facility] 03-13-2024 08:07-0400 Systolic blood pressure 142 mm[Hg] Bud Cool MD Work Phone: [facility] 01-15-2024 11:51-0400 Diastolic blood pressure 82 mm[Hg] Kayleigh Slabaugh PA-C Work Phone: [facility] 01-15-2024 11:51-0400 Systolic blood pressure 170 mm[Hg] Kayleigh Slabaugh PA-C Work Phone: [facility] 01-15-2024 11:39-0400 Body mass index (BMI) [Ratio] 29.5 kg/m2 Kayleigh Slabaugh PA-C Work Phone: [facility] 01-15-2024 11:39-0400 Body temperature 97.59 [degF] Kyaleigh Slabaugh PA-C Work Phone: [facility] 01-15-2024 11:39-0400 Body weight 90.65 kg Kayleigh Slabaugh PA-C Work Phone: [facility] 01-15-2024 11:39-0400 Heart rate 95 /min Kayleigh Slabaugh PA-C Work Phone: [facility] 01-15-2024 11:39-0400 SaO2% (BldA) [Mass fraction] 99 % Kayleigh Slabaugh PA-C Work Phone: [facility] 09-29-2023 14:39-0500 Body weight 89.2 kg Bibi Díaz HEEL SEATER.ACQUISITION MANAGER Work Phone: [facility] 09-29-2023 14:39-0500 Diastolic blood pressure 73 mm[Hg] Bibi Díaz HEEL SEATER.ACQUISITION MANAGER Work Phone: [facility] 09-29-2023 14:39-0500 Heart rate 64 /min Bibi Díaz HEEL SEATER.ACQUISITION MANAGER Work Phone: [facility] 09-29-2023 14:39-0500 SaO2% (BldA) [Mass fraction] 99 % Bibi Díaz HEEL SEATER.ACQUISITION MANAGER Work Phone: [facility] 09-29-2023 14:39-0500 Systolic blood pressure 150 mm[Hg] Bibi Díaz HEEL SEATER.ACQUISITION MANAGER Work Phone: [facility] 11-10-2022 09:46-0400 Body temperature 97.9 [degF] Bibi Díaz HEEL SEATER.ACQUISITION MANAGER Work Phone: [facility] 11-10-2022 09:46-0400 Body weight 92.08 kg Bibi Díaz HEEL SEATER.ACQUISITION MANAGER Work Phone: [facility] 11-10-2022 09:46-0400 Diastolic blood pressure 62 mm[Hg] Bibi Díaz HEEL SEATER.ACQUISITION MANAGER Work Phone: [facility] 11-10-2022 09:46-0400 Heart rate 54 /min Bibi Díaz HEEL SEATER.ACQUISITION MANAGER Work Phone: [facility] 11-10-2022 09:46-0400 SaO2% (BldA) [Mass fraction] 99 % Bibi Díaz HEEL SEATER.ACQUISITION MANAGER Work Phone: [facility] 11-10-2022 09:46-0400 Systolic blood pressure 160 mm[Hg] Bibi Díaz HEEL SEATER.ACQUISITION MANAGER Work Phone: [facility] 04-01-2022 08:14-0400 Body temperature 97.9 [degF] Bud Cool MD Work Phone: [facility] 04-01-2022 08:14-0400 Body weight 89.36 kg Bud Cool MD Work Phone: [facility] 04-01-2022 08:14-0400 Diastolic blood pressure 78 mm[Hg] Bud Cool MD Work Phone: [facility] 04-01-2022 08:14-0400 Heart rate 58 /min Bud Cool MD Work Phone: [facility] 04-01-2022 08:14-0400 SaO2% (BldA) [Mass fraction] 97 % Bud Cool MD Work Phone: [facility] 04-01-2022 08:14-0400 Systolic blood pressure 136 mm[Hg] Bud Cool MD Work Phone: [facility] 03-19-2022 14:14-0400 Diastolic blood pressure 68 mm[Hg] [facility] Work Phone: 03-19-2022 14:14-0400 Heart rate 79 /min [facility] Work Phone: 03-19-2022 14:14-0400 Respiratory rate 15 /min [facility] Work Phone: 03-19-2022 14:14-0400 SaO2% (BldA) [Mass fraction] 98 % [facility] Work Phone: 03-19-2022 14:14-0400 Systolic blood pressure 148 mm[Hg] [facility] Work Phone: 03-19-2022 08:44-0400 Body height 175.26 cm [facility] Work Phone: 03-19-2022 08:44-0400 Body mass index (BMI) [Ratio] 28 kg/m2 [facility] Work Phone: 03-19-2022 08:44-0400 Body temperature 97.5 [degF] [facility] Work Phone: 03-19-2022 08:44-0400 Body weight 86.18 kg [facility] Work Phone: 03-02-2022 08:40-0400 Body height 175.3 cm Bud Cool MD Work Phone: [facility] 03-02-2022 08:40-0400 Body temperature 96.4 [degF] Bud Cool MD Work Phone: [facility] 03-02-2022 08:40-0400 Body weight 89.18 kg Bud Cool MD Work Phone: [facility] 03-02-2022 08:40-0400 Diastolic blood pressure 82 mm[Hg] Bud Cool MD Work Phone: [facility] 03-02-2022 08:40-0400 Heart rate 60 /min Bud Cool MD Work Phone: [facility] 03-02-2022 08:40-0400 SaO2% (BldA) [Mass fraction] 98 % Bud Cool MD Work Phone: [facility] 03-02-2022 08:40-0400 Systolic blood pressure 130 mm[Hg] Bud Cool MD Work Phone: [facility] Encounters Encounter Date Encounter Type Care Provider Facility Start: 03-12-2025 End: 03-12-2025 ambulatory BUD COOL Facility:[facility] Start: 03-12-2025 End: 03-12-2025 Patient encounter procedure Bud Cool MD [facility] Phone[facility] Comment on above: Medicare annual well ness visit, subsequent (Primary Dx); Screening for depression; Encounter for screening examination for other mental health and behavioral disorders; Impaired fasting glucose; Mixed hyperlipidemia; Thrombocytopenia Start: 03-07-2025 End: 03-07-2025 Refill Edie Pollard PA-C Work Phone[facility] Comment on above: Refill Request Start: 03-07-2025 End: 03-12-2025 Telephone encounter Bud Cool MD Work Phone: [facility] Comment on above: Results Start: 03-07-2025 End: 03-07-[address] Bud Cool MD Work Phone: [facility] Start: 03-07-2025 End: 03-07-[address] Bud Cool MD [facility] Start: 03-07-2025 End: 03-07-2025 ambulatory Edie NEW Facility:[facility] Start: 02-19-2025 End: 02-19-2025 Get Medical Advice Bud Cool MD Work Phone: [facility] Comment on above: Lab Orders Request Start: 02-11-2025 End: 02-12-2025 Get Medical Advice Bud Cool MD Work Phone: [facility] Comment on above: Lab Order Request Re Katy's response t o lab requests Start: 12-05-2024 End: 12-05-[address] Bud Cool MD Work Phone: [facility] Work Phone: Start: 12-05-2024 End: 12-05-2024 Patient encounter procedure Otf [facility] Work Phone: Start: 12-05-2024 End: 12-05-2024 ambulatory Otf Walker Facility:[facility] Start: 06-22-2024 End: 06-22-2024 ambulatory SHAYE PAREDES Facility:[facility] Start: 06-22-2024 End: 06-22-2024 Office outpatient visit 25 minutes Shaye Paredes HEEL SEATER.ACQUISITION MANAGER Work Phone: [facility] Comment on above: Elevated BP without diagnosis of hypertension (Primary Dx); Anxiety; Caregiver role strain Start: 06-19-2024 End: 06-19-2024 ambulatory SHAYE PAREDES Facility:[facility] Start: 06-19-2024 End: 06-19-2024 Office outpatient visit 25 minutes Shaye Paredes HEEL SEATER.ACQUISITION MANAGER Work Phone: [facility] Comment on above: Elevated BP without diagnosis of hypertension (Primary Dx); Anxiety; Caregiver role strain Start: 05-22-2024 End: 05-23-2024 Telephone encounter Bud Cool MD Work Phone: [facility] Comment on above: Forms (Dentist- bloo d pressure) Start: 03-13-2024 End: 03-13-2024 Patient encounter procedure Bud Cool MD Work Phone: [facility] Comment on above: Medicare annual well ness visit, subsequent (Primary Dx); Screening for depression; Encounter for screening examination for other mental health and behavioral disorders; Mixed hyperlipidemia; Impaired fasting glucose; Thrombocytopenia (HCC) Start: 03-07-2024 Refill Bud Lacy Work Phone: [facility] Comment on above: Refill Request Start: 02-17-2024 Get Medical Advice Bud Lovett MD Work Phone: [facility] Comment on above: Lab order for [facility] office vs Start: 01-15-2024 End: 01-15-2024 Patient encounter procedure Kayleigh Farris PA-C Work Phone: [facility] Comment on above: Rash (Primary Dx); Elevated blood pressure reading without diagnosis of hypertension Start: 12-06-2023 ambulatory Bud Lacy Work Phone: [facility] Comment on above: Recent blood pressur e readings Blood Pressure (/) Start: 11-28-2023 End: 11-28-2023 ambulatory [facility] Work Phone: Start: 11-28-2023 End: 11-28-2023 Patient encounter procedure [facility] Start: 09-29-2023 End: 09-29-2023 Office outpatient visit 25 minutes Bibi Díaz APRN.CNP Work Phone: [facility] Comment on above: Upper respiratory in fection with cough and congestion (Primary Dx) Start: 03-03-2023 End: 03-03-2023 ambulatory [facility] Work Phone: Start: 03-03-2023 End: 03-03-2023 Patient encounter procedure [facility] Start: 01-11-2023 Refill Bud Lacy Work Phone: [facility] Comment on above: Refill Request Start: 11-11-2022 End: 11-11-2022 ambulatory [facility] Work Phone: Start: 11-11-2022 End: 11-11-2022 Patient encounter procedure [facility] Start: 11-10-2022 End: 11-10-2022 Patient encounter procedure Bibi Díaz APRN.ACQUISITION MANAGER Work Phone: [facility] Comment on above: Upper respiratory in fection with cough and congestion (Primary Dx); Elevated blood-pressure reading without diagnosis of hypertension Start: 09-03-2022 Telephone encounter Darius Silver MD Work Phone: Otolaryngology Comment on above: Results Start: 09-03-2022 End: 09-03-2022 Subsequent hospital visit by physician [facility] (1.5t) Radiology Comment on above: 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] Start: 08-17-2022 Orders Only Darius velasco MD Work Phone: Otolaryngology Comment on above: Sensorineural hearin g loss (SNHL) of both ears (Primary Dx) Start: 08-13-2022 End: 08-13-2022 Patient encounter procedure Kathleen Noriega AUD Work Phone: Audiology Comment on above: Tinnitus of both ear s (Primary Dx) Start: 07-26-2022 Telephone encounter Bud paige MD Work Phone: [facility] Comment on above: Results Start: 05-07-2022 End: 05-07-2022 Patient encounter procedure Darius Silver MD Work Phone: Otolaryngology Comment on above: Tinnitus of both ear s (Primary Dx); Sensorineural hearing loss (SNHL) of both ears Start: 04-01-2022 End: 04-01-2022 Patient encounter procedure Bud Cool MD Work Phone: [facility] Comment on above: Acute pancreatitis, unspecified complication status, unspecified pancreatitis type (Primary Dx); Epigastric pain Start: 03-27-2022 ambulatory Bud Lacy Work Phone: [facility] Comment on above: Tinnitus Start: 03-24-2022 Telephone encounter Bud paige MD Work Phone: [facility] Comment on above: Results ([facility]) Start: 03-22-2022 Telephone encounter Bud paige MD Work Phone: [facility] Comment on above: Results Start: 03-19-2022 End: 03-19-2022 Emergency department patient visit [facility] Start: 03-02-2022 End: 03-02-2022 Patient encounter procedure Bud Cool MD Work Phone: [facility] Comment on above: Mixed hyperlipidemia (Primary Dx); Encounter for immunization; Benign prostatic hyperplasia with nocturia; Impaired fasting glucose; Laboratory exam ordered as part of routine general medical examination; Thrombocytopenia (HCC) Start: 03-02-2022 End: 03-02-2022 Patient encounter status Bud Cool MD Work Phone: [facility] Start: 02-25-2022 Get Medical Advice Bud Lovett MD Work Phone: [facility] Comment on above: Bloodwork completed Start: 02-24-2022 End: 02-24-2022 Patient encounter procedure [facility] Start: 12-23-2021 Refill Bud Lacy Work Phone: [facility] Comment on above: Refill Request Start: 11-04-2021 End: 11-04-2021 Patient encounter procedure [facility] Start: 03-14-2020 End: 03-14-2020 Subsequent hospital visit by physician Foreign Flores Work Phone: [facility] MRI Comment on above: Arrived Procedures Date Procedure Procedure Detail Performing Clinician Start: 03-12-2025 Adult depression scr eening assessment Bud Cool MD Work Phone: Start: 12-05-2024 Prostate specific an tigen measurement Dr. Bud Cool MD Work Phone: Comment on above: This test was perfor med using the [employer] tPSA method. Measured values of a patient sample can vary depending on the testing procedure used. PSA values determined on patient samples by different testing procedures cannot be used interchangeably. If there is a change in PSA assays while monitoring therapy, sequential testing should be performed to confirm baseline values. Start: 03-13-2024 Adult depression scr eening assessment Bud Cool MD Work Phone: Start: 09-03-2022 Mri brain brain stem w/o w/contrast material Darius Silver MD Work Phone: Start: 03-19-2022 Computed tomography of abdomen and pelvis with intravenous contrast Start: 03-01-2022 Adult depression scr eening assessment Bud Cool MD Work Phone: Start: 10-28-2021 Colonoscopy Bud paige MD Work Phone: Start: 10-27-2020 Adult depression scr eening assessment Bud Cool MD Work Phone: Start: 03-14-2020 MRI UPPER EXTREMITY LEFT W CONTRAST Foreign Flores Work Phone: Start: 03-14-2020 Arthrocentesis aspir &/inj major jt/bursa w/o us Foreign Flores Work Phone: Plan of Treatment Date Care Activity Detail Author Start: 02-28-2027 Urine microalbumin profile DTaP,Tdap,Td Vaccine (2 - Td or Tdap) [facility] Start: 10-28-2026 Colonoscopy COLONOSCOPY [facility] Start: 10-28-2026 COLORECTAL CANCER SCREENING COLORECTAL CANCER SCREENING [facility] Start: 10-28-2026 Screening for malign ant neoplasm of colon [facility] Start: 03-13-2026 End: 03-13-2026 Patient encounter procedure 03/13/2026 1:00 PM EDT Office Visit Family [facility] [address] [address] Bud Cool MD [address] [place] [address] annual wellness visit Family [facility] Comment on above: annual wellness visi t Start: 03-12-2026 Anxiety Screening Anxiety Screening [facility] Start: 03-12-2026 Depression Screening Depression Scre ening [facility] Start: 03-03-2026 Diabetes Screening Diabetes Screenin g [facility] Start: 02-10-2026 End: 05-12-2026 CBC W Auto Differential panel - Blood COMPLETE BLOOD COUNT AND DIFFERENTIAL Lab Routine Thrombocytopenia Expected: 02/10/2026 (Approximate), Expires: 05/12/2026 [facility] Comment on above: Expected: 02/10/2026 (Approximate), Expires: 05/12/2026 Start: 02-10-2026 End: 05-12-2026 Comprehensive metabolic 2000 panel - Serum or Plasma COMPREHENSIVE METABOLIC PANEL Lab Routine Impaired fasting glucose Mixed hyperlipidemia Expected: 02/10/2026 (Approximate), Expires: 05/12/2026 [facility] Comment on above: Expected: 02/10/2026 (Approximate), Expires: 05/12/2026 Start: 02-10-2026 End: 05-12-2026 Hemoglobin A1c in Blood HEMOGLOBIN A1C Lab Routine Impaired fasting glucose Expected: 02/10/2026 (Approximate), Expires: 05/12/2026 [facility] Comment on above: Expected: 02/10/2026 (Approximate), Expires: 05/12/2026 Start: 02-10-2026 End: 05-12-2026 Lipid 1996 panel - Serum or Plasma LIPID PANEL, FASTING Lab Routine Mixed hyperlipidemia Expected: 02/10/2026 (Approximate), Expires: 05/12/2026 [facility] Work Phone: Comment on above: Expected: 02/10/2026 (Approximate), Expires: 05/12/2026 Start: 06-19-2025 Covid-19 Vaccine ( season) Covid-19 Vaccine () [facility] Comment on above: Postponed from 04/15 (Declined at this time) Start: 04-15-2025 Influenza vaccination Influenza Vacc ine (#1) [facility] Start: 03-13-2025 Anxiety Screening Anxiety Screening [facility] Start: 03-13-2025 Depression Screening Depression Scre ening [facility] Start: 03-12-2025 End: 03-12-2025 Patient encounter procedure 03/12/2025 8:20 AM EDT Office Visit [facility] [address] [id number] Bud Cool MD [address] [place], [place] [id number] 1 year annual exam [facility] Comment on above: 1 year annual exam Start: 02-25-2025 LIPID SCREEN LIPID SCREEN [facility] Start: 02-11-2025 End: 05-13-2025 CBC panel - Blood by Automated count COMPLETE BLOOD COUNT Lab Routine Mixed hyperlipidemia Thrombocytopenia Expected: 02/11/2025, Expires: 05/13/2025 [facility] Comment on above: Expected: 02/11/2025 , Expires: 05/13/2025 Start: 02-11-2025 End: 05-13-2025 CBC W Auto Differential panel - Blood COMPLETE BLOOD COUNT AND DIFFERENTIAL Lab Routine Thrombocytopenia (HCC) Expected: 02/11/2025 (Approximate), Expires: 05/13/2025 [facility] Comment on above: Expected: 02/11/2025 (Approximate), Expires: 05/13/2025 Start: 02-11-2025 End: 05-13-2025 Comprehensive metabolic 2000 panel - Serum or Plasma [facility] Comment on above: Expected: 02/11/2025 (Approximate), Expires: 05/13/2025 Expected: 02/11/2025 , Expires: 05/13/2025 Start: 02-11-2025 End: 05-13-2025 Hemoglobin A1c in Blood [facility] Comment on above: Expected: 02/11/2025 (Approximate), Expires: 05/13/2025 Expected: 02/11/2025 , Expires: 05/13/2025 Start: 02-11-2025 End: 05-13-2025 Lipid 1996 panel - Serum or Plasma [facility] Work Phone: Comment on above: Expected: 02/11/2025 (Approximate), Expires: 05/13/2025 Expected: 02/11/2025 , Expires: 05/13/2025 Start: 08-17-2024 End: 08-17-2024 Patient encounter procedure 08/17/2024 8:40 AM EST Office Visit [place] [address] [address] Shaye Alvarez, HEEL SEATER.ACQUISITION MANAGER [address] [place] [address] 8 week follow up Family [facility] Comment on above: 8 week follow up Start: 08-15-2024 Advance Directive Discussion Advance Directive Discussion [facility] Start: 08-15-2024 Medicare Advantage Annual Wellness Visit Medicare Advantage Annual Wellness Visit [facility] Start: 06-22-2024 End: 06-22-2024 Patient encounter procedure 06/22/2024 8:00 AM EST Office Visit [place] [address] [address] Shaye Alvarez, HEEL SEATER.ACQUISITION MANAGER [address] [place] [address] Return in 3 days (on 06/22/2024) for Bp follow up. [facility] Comment on above: Return in 3 days (on 06/22/2024) for Bp follow up. Start: 04-15-2024 Covid-19 Vaccine ( season) Covid-19 Vaccine () [facility] Start: 04-15-2024 Influenza vaccination Influenza Vacc ine (#1) [facility] Start: 03-13-2024 End: 03-13-2024 Patient encounter procedure 03/13/2024 8:20 AM EDT Office Visit [facility] [address] [address] Bud Cool MD [address] [facility] [place] [address] 1 year annual exam [facility] Comment on above: 1 year annual exam Start: 02-21-2024 End: 05-22-2024 CBC W Auto Differential panel - Blood COMPLETE BLOOD COUNT AND DIFFERENTIAL Lab Routine Thrombocytopenia (HCC) Expected: 02/21/2024, Expires: 05/22/2024 [facility] Comment on above: Expected: 02/21/2024 , Expires: 05/22/2024 Start: 02-21-2024 End: 05-22-2024 Comprehensive metabolic 2000 panel - Serum or Plasma COMPREHENSIVE METABOLIC PANEL Lab Routine Impaired fasting glucose Expected: 02/21/2024, Expires: 05/22/2024 [facility] Comment on above: Expected: 02/21/2024 , Expires: 05/22/2024 Start: 02-21-2024 End: 05-22-2024 Hemoglobin A1c in Blood HEMOGLOBIN A1C Lab Routine Impaired fasting glucose Expected: 02/21/2024 (Approximate), Expires: 05/22/2024 [facility] Comment on above: Expected: 02/21/2024 (Approximate), Expires: 05/22/2024 Start: 02-21-2024 End: 05-22-2024 Lipid 1996 panel - Serum or Plasma LIPID PANEL BASIC Lab Routine Mixed hyperlipidemia Expected: 02/21/2024, Expires: 05/22/2024 [facility] Work Phone: Comment on above: Expected: 02/21/2024 , Expires: 05/22/2024 Start: 02-21-2024 End: 05-22-2024 Prostate specific Ag [Mass/volume] in Serum or Plasma PROSTATE-SPECIFIC ANTIGEN DIAGNOSTIC Lab Routine Elevated PSA Expected: 02/21/2024, Expires: 05/22/2024 [facility] Comment on above: Expected: 02/21/2024 , Expires: 05/22/2024 Start: 08-15-2023 Advance Directive Discussion Advance Directive Discussion [facility] Start: 08-15-2023 Behavioral Health Screening Behavioral Health Screening [facility] Start: 08-15-2023 Depression Assessment Depression Ass essment [facility] Start: 04-15-2023 Covid-19 Vaccine () Covid-19 Vaccine () [facility] Start: 03-28-2023 DIABETES SCREEN DIABETES SCREEN [facility] Start: 03-02-2023 COVID-19 VACCINE (4 - Booster for Moderna series) COVID-19 VACCINE (4 - Booster for Moderna series) [facility] Comment on above: Postponed from 11/28 (Declined at this time) Postponed from 09/24 (Declined at this time) Start: 03-01-2023 Adult depression screening assessment DEPRESSION SCREENING [facility] Start: 01-31-2023 End: 04-02-2023 CBC W Auto Differential panel - Blood CBC + DIFF Lab Routine Thrombocytopenia (HCC) Expected: 01/31/2023 (Approximate), Expires: 04/02/2023 [facility] Work Phone: Comment on above: Expected: 01/31/2023 (Approximate), Expires: 04/02/2023 Start: 01-31-2023 End: 04-02-2023 Comprehensive metabolic 2000 panel - Serum or Plasma COMP METABOLIC PANEL Lab Routine Laboratory exam ordered as part of routine general medical examination Expected: 01/31/2023 (Approximate), Expires: 04/02/2023 [facility] Work Phone: Comment on above: Expected: 01/31/2023 (Approximate), Expires: 04/02/2023 Start: 01-31-2023 End: 04-02-2023 Hemoglobin A1c in Blood HGB A1C Lab Routine Impaired fasting glucose Expected: 01/31/2023 (Approximate), Expires: 04/02/2023 [facility] Work Phone: Comment on above: Expected: 01/31/2023 (Approximate), Expires: 04/02/2023 Start: 01-31-2023 End: 04-02-2023 Lipid 1996 panel - Serum or Plasma LIPID PANEL BASIC Lab Routine Mixed hyperlipidemia Expected: 01/31/2023 (Approximate), Expires: 04/02/2023 [facility] Work Phone: Comment on above: Expected: 01/31/2023 (Approximate), Expires: 04/02/2023 Start: 08-15-2022 ADVANCE DIRECTIVE DISCUSSION ADVANCE DIRECTIVE DISCUSSION [facility] Start: 08-15-2022 DEPRESSION ASSESSMENT DEPRESSION ASS ESSMENT [facility] Start: 04-15-2022 Influenza vaccination INFLUENZA (#1) [facility] Start: 11-28-2021 COVID-19 VACCINE (4 - Booster for Moderna series) COVID-19 VACCINE (4 - Booster for Moderna series) [facility] Start: 10-27-2021 Adult depression screening assessment DEPRESSION SCREENING [facility] Start: 2021 RSV Vaccine (1 - 1-d ose 75+ series) RSV Vaccine (1 - 1-dose 75+ series) [facility] Start: 08-15-2021 ADVANCE DIRECTIVE DISCUSSION ADVANCE DIRECTIVE DISCUSSION [facility] Start: 08-15-2021 DEPRESSION ASSESSMENT DEPRESSION ASS ESSMENT [facility] Start: 04-15-2020 Influenza vaccination Flu vaccine (# 1) [place], [place] Start: 03-01-2017 Urine microalbumin profile DTAP,TDAP,TD (1 - Tdap) [facility] Start: 06-29-2014 PNEUMOCOCCAL: 65+ (2 - PCV) PNEUMOCOCCAL: 65+ (2 - PCV) [facility] Start: 2011 Pneumococcal 65+ yea rs Vaccine (1 of 1 - PPSV23) Pneumococcal 65+ years Vaccine (1 of 1 - PPSV23) [place], [place] Start: 2006 RSV Vaccine (1 - 1-d ose 60+ series) RSV Vaccine (1 - 1-dose 60+ series) [facility] Start: 1996 Screening for malign ant neoplasm of colon Colon cancer screen colonoscopy [place], [place] Start: 1996 Shingles Vaccine (1 of 2) Shingles Vaccine (1 of 2) [place], [place] Start: 1991 COLOGUARD (FIT-DNA) COLOGUARD (FIT-D NA) [facility] Start: [address] COLONOGRAPHY [facility] Start: 1991 FECAL OCCULT BLOOD FECAL OCCULT BLOO D [facility] Start: 1991 SIGMOIDOSCOPY SIGMOIDOSCOPY [facility] Start: 1986 Lipid panel Lipid screen [place], [place] Start: 1965 DTaP/Tdap/Td vaccine (1 - Tdap) DTaP/Tdap/Td vaccine (1 - Tdap) [place], [place] Start: 1964 Anxiety Screening Anxiety Screening [facility] Start: 1964 Depression Screening Depression Scre ening [facility] Start: 1946 Hepatitis C screening Hepatitis C sc reen [place], [place] Start: 1946 Screening for malign ant neoplasm of colon [facility] End: 09-16-2023 Mri brain brain stem w/o w/contrast material MRI BRAIN WO/W IVCON Radiology Routine Sensorineural hearing loss (SNHL) of both ears 1 Occurrences starting 08/17/2022 until 09/16/2023 [facility] Work Phone: Comment on above: 1 Occurrences starti ng 08/17/2022 until 09/16/2023 Patient Education ED Clear Liqui d Diet ED Pancreatitis [facility] Work Phone: Patient referral [facility] Work Phone: [facility] Immunizations Immunization Date Immunization Notes Care Provider Zee delgadillo 07-02-2024 respiratory syncytia l virus (RSV) vaccine, adjuvanted (AREXVY) Bud Cool MD Work Phone: [facility] 05-14-2024 influenza virus vacc ine, unspecified formulation Bud Cool MD Work Phone: [facility] 05-12-2023 influenza virus vacc ine, unspecified formulation Bud Cool MD Work Phone: [facility] 03-02-2022 pneumococcal (PCV20) vaccine, 20 valent (PREVNAR 20) Bud Cool MD Work Phone: [facility] 03-02-2022 pneumococcal Conjuga te, unspecified formulation Bud Cool MD Work Phone: [facility] Work Phone: 05-06-2021 influenza, high-dose , quadrivalent vaccine (FLUZONE HIGH DOSE QUADRIVALENT) Bud Cool MD Work Phone: [facility] Work Phone: 10-15-2020 COVID-19 vaccine, fu ll dose (MODERNA) Bud Cool MD Work Phone: [facility] Work Phone: 04-26-2020 influenza, high-dose , quadrivalent vaccine (FLUZONE HIGH DOSE QUADRIVALENT) Bud Cool MD Work Phone: [facility] Work Phone: 07-10-2019 zoster vaccine recombinant Bud Cool MD Work Phone: [facility] Work Phone: 06-02-2019 influenza, injectabl e, quadrivalent, preservative free Bud Cool MD Work Phone: [facility] Work Phone: 05-08-2019 zoster vaccine recombinant Bud Cool MD Work Phone: [facility] Work Phone: 05-11-2018 influenza, high dose seasonal, preservative-free Bud Cool MD Work Phone: [facility] Work Phone: 05-01-2018 zoster vaccine recombinant Bud Cool MD Work Phone: [facility] Work Phone: 05-23-2017 influenza, high dose seasonal, preservative-free Bud Cool MD Work Phone: [facility] Work Phone: 02-28-2017 TD(adult) unspecifie d formulation Bud Cool MD Work Phone: [facility] 02-28-2017 tetanus toxoid, redu sammi diphtheria toxoid, and acellular pertussis vaccine, adsorbed Bud Cool MD Work Phone: [facility] Work Phone: 05-22-2014 influenza, high dose seasonal, preservative-free Bud Cool MD Work Phone: [facility] Work Phone: 06-29-2013 pneumococcal polysaccharide vaccine, 23 valent Bud Cool MD Work Phone: [facility] Work Phone: 05-30-2013 pneumococcal Conjuga te, unspecified formulation Bud Cool MD Work Phone: [facility] 06-14-2012 influenza, seasonal, injectable Bud Cool MD Work Phone: [facility] Work Phone: 06-23-2009 novel influenza-H1N1 -09, preservative-free, injectable Bud Cool MD Work Phone: [facility] Work Phone: Payers Date Payer Category Payer Self-pay [id number] 2018 Medicare MMO MEDICARE MMO MEDADVANTAGE O [id number] 2018-Present [phone] [address] [place] [address] O [id number] 2018 Medicare MMO MEDICARE MMO MEDADVANTAGE O [id number] 2018-Present [phone] [address] [place] [address] [facility] [id number] 2018 Medicare (Managed Care) MMO [employer] DV[employer]AGE HMO [id number] 2018 Medicare [id number] Unknown [id number] Unknown [id number] Social History Date Type Detail Facility Tobacco smoking stat [facility] Unknown if ever smoked [employer] Sex Assigned At Not on file [employer] Start: 1945 Sex Assigned At Male [facility] Start: 02-26-2019 End: 05-07-2022 Tobacco smoking status SDIS Never smoked tobacco [facility] Start: 02-26-2019 End: 05-07-2022 Tobacco use and exposure Smokeless tobacco non-user [facility] Start: 11-10-2021 End: 06-22-2024 Alcohol intake Current drinker of alcohol (finding) [facility] Start: 11-10-2021 End: 03-05-2023 Alcohol intake [facility] Start: 10-28-2020 End: 03-01-2022 History SDOH Alcohol Frequency 4 [facility] Start: 10-28-2020 End: 03-01-2022 History SDOH Alcohol Std Drinks 1 [facility] Start: 10-28-2020 End: 03-01-2022 History SDOH Social Connections Phone 5 [facility] Start: 10-28-2020 End: 03-01-2022 History SDOH Social Connections Hoahaoism 3 [facility] Start: 10-28-2020 End: 03-01-2022 History SDOH Physical Activity MPS 12 [facility] Start: 10-28-2020 End: 03-01-2022 History SDOH Transport Med 2 [facility] Start: 10-27-2020 Education 17 [facility] Start: 02-20-2022 End: 05-07-2022 Exposure to SARS-CoV-2 (event) Not sure [facility] Start: 03-19-2022 Tobacco smoking status NHIS Unknown if ever smoked [facility] Start: 03-05-2023 End: 03-06-2024 Social connection and isolation panel [facility] Do you belong to any clubs or organizations such as methodist groups, unions, fraternal or athletic groups, or school groups? Yes [facility] Are you now , , , , never or living with a partner? [facility] How often to you hav e a drink containing alcohol? 2-4 times a month [facility] How many standard dr inks containing alcohol do you have on a typical day? 1 or 2 [facility] How often do you hav e 6 or more drinks on 1 occasion? Never [facility] How hard is it for y ou to pay for the very basics like food, housing, medical care, and heating Not hard at all [facility] Do you feel stress - tense, restless, nervous, or anxious, or unable to sleep at night because your mind is troubled all the time - these days [OSQ] Only a little [facility] (I/We) worried wheth er (my/our) food would run out before (I/we) got money to buy more. Never true [facility] In the past 12 month s, was there a time when you were not able to pay the mortgage or rent on time? No [facility] Start: 10-27-2020 Gender identity Identifies as male gender (finding) [facility] Start: 10-27-2020 Sexual orientation Heterosexual (finding) [facility] How often to you hav e a drink containing alcohol? 4 or more times a week [facility] Start: 12-10-2024 Sex Male (finding) [facility] How often to you hav e a drink containing alcohol? 2-3 time sa week [facility] Do you feel stress - tense, restless, nervous, or anxious, or unable to sleep at night because your mind is troubled all the time - these days [OSQ] Not at all [facility] Functional Status Date Assessment Result Facility 03-09-2025 Total score [AUDIT-C] 3 03/09/20 12:09 PM EDT User, Oleksandr [facility] 03-09-2025 How often to you hav e a drink containing alcohol? 2-3 times a week 03/09/2025 12:09 PM EDT User, Maria Teresat 2-3 time sa week [facility] 03-09-[address] inks containing alcohol do you have on a typical day? 1 or 2 03/09/2025 12:09 PM EDT User, Maria Teresat 1 or 2 [facility] 03-09-2025 How often do you hav e 6 or more drinks on 1 occasion? Never 03/09/2025 12:09 PM EDT User, Oleksandr Never [facility] Clinical Notes 12-23-2021 to 03-12-2025 Telephone Encounter - Katy Coulter LPN - 03/12/2025 9:41 AM EDTTelephone Encounter - Katy Coulter LPN - 03/12/2025 9:41 AM EDTTelephone Encounter - Katy Coulter LPN - 03/07/2025 11:47 AM EDT Note Date & Type Note Facility 03-12-2025 Telephone encounter Note Reviewed and sent to scanning. Katy Coulter LPN [facility] 03-12-2025 Miscellaneous Notes Reviewed and sent to scanning. Katy Coulter LPN Received Labs from [facility]. Placed in provider's inbox for review. Route to [place] for scanning. documented in this encounter [facility] 03-12-2025 Note HNO ID: [id number] Author: BUD COOL MD Service: ? Author Type: Physician Type: Progress Notes Filed: 03/12/2025 08:55 Note Text: Kenia Swain is a 79 year old male here for a Medicare wellness visit. Medicare Health Risk Assessment General Health Very good Exercise: Minutes/Day 150+ min Exercise: Days/Week 6 days Alcohol: Daily Use 2-3 times a week Alcohol: Drinks/Day 1 or 2 Alcohol: 6 or more drinks Never Feel off balance No Concerns: Teeth/Dentures No Concerns: Sexual function No Troubled by feelings Stressed Frequency: Eating healthy diet Nearly every day ADLs requiring help None of the above Safety precautions in home/vehicle Yes Smoke, vape, chews tobacco No Difficulty hearing Yes, I wear a hearing aid Difficulty seeing No Current Providers Specialists: I have reviewed specialist-related care of the patient in the medical record. Current care team: Patient Care Team: Bud Cool MD as PCP - General (Family Medicine) Reggie Hanson MD (Urology) Alexis Dickerson MD (Gastroenterology) Terrance Zarate (Ophthalmology) Edie Pollard PA-C as Credit Collections Rep (Family Medicine) Medical/Family history review Reviewed and updated problem list, medical/surgical/family/social history, medications, and allergies. Opioid use review Opioid Medications (last 90 days) No data to display Anxiety/Depression screening PHQ-9 Score: 0 . ALPESH-7 Score: 0 . Recommendation: no further intervention at this time Cognitive screening Mini Cog Score: 5 Cognitive screening reviewed and No further action needed (score 3-5). Functional Observation Was the patient's Timed Up AND Go test unsteady or >= 12 seconds? No Advance Care Planning Surrogate decision maker and/or advance care plan documented Measurements BP 140/74 Pulse (!) 58 Temp 36.4 ?C (97.5 ?F) (Temporal) Ht 175.3 cm (5' 9.02) Wt 90 kg (198 lb 6.6 oz) SpO2 97% BMI 29.29 kg/m? Vision Screening: Follows with optometry/ophthalmology Assessment/Plan Medicare annual wellness visit, subsequent (Z00.00) - Counseled on healthy diet and regular exercise - Fall avoidance information provided - Personalized prevention plan provided Additional Concerns The following concerns were also discussed with the patient: Recording using ambient [employer] software for draft documentation of the visit was discussed with the patient/authorized construction sales representative; all questions welcomed and answered. Patient/authorized construction sales representative agreed to proceed Subjective Annual Wellness Exam: - Reports a stressful year, primarily due to caregiving responsibilities for his mother. - Mother, aged 103, resides in a correction and requires extensive care. - Describes mother as mean and nasty, contributing to emotional stress. - Denies interest in counseling or support groups. - Plans to travel to [place] for a month in March to alleviate stress. - Reports good physical health, remains active, and works on a farm one day a week. - Plans a hunting and fishing trip to the [facility] in May. - Decreased exercise over the past couple of years due to caregiving responsibilities. - Consumes a diet rich in fruits and vegetables; drinks Boost protein drinks. - Takes magnesium in the morning. - Up to date on RSV and shingles vaccines. - Sees an eye doctor every two years; next appointment scheduled in five years. - Scheduled for a colonoscopy at age 81; last colonoscopy was at age 76. - Family history of colon cancer in father. - Monitors blood pressure weekly, with readings consistently between 132-142/68 mmHg. - Reports normal bowel movements. - Expresses deep appreciation and love for his , describing her as the greatest thing that has ever happened in my life. Hyperlipidemia: - Managed with simvastatin. - Total cholesterol 157 mg/dL. - HDL was 48 mg/dL. - Triglycerides were 106 mg/dL. BPH: - Managed with tamsulosin. - Reports nocturia once or twice per night. Anxiety: - Discontinued BuSpar after three days due to disorientation. Gastrointestinal: (-) constipation, (-) diarrhea Genitourinary: (+) nocturia Musculoskeletal: (-) knee pain, (-) swelling Psychiatric: (+) stress, (+) mental fatigue, (+) passive suicidal ideation Objective BP 140/74 Pulse (!) 58 Temp 36.4 ?C (97.5 ?F) (Temporal) Ht 175.3 cm (5' 9.02) Wt 90 kg (198 lb 6.6 oz) SpO2 97% BMI 29.29 kg/m? GENERAL: NAD, alert and oriented. SKIN: Unremarkable, no rash or skin lesions. HEAD: Normocephalic. EYES: PERRLA, EOMI, conjunctiva clear. EARS: External ears normal, canals clear, TM's normal. NOSE/SINUSES: Nares normal. Septum midline. OROPHARYNX: Lips, mucosa, and tongue normal, good dentition. No oral lesions noted. NECK: Supple, no lymphadenopathy, normal thyroid, no carotid bruits. LUNGS: Clear to auscultation bilaterally, no wheezes/rhonchi/rales. HEART: Regular rate a (more content not included)... [facility] 03-12-2025 History of Presen t illness Narrative Images from the original note were not included. Kenia Swain is a 79 year old male here for a Medicare wellness visit. Medicare Health Risk Assessment General Health Very good Exercise: Minutes/Day 150+ min Exercise: Days/Week 6 days Alcohol: Daily Use 2-3 times a week Alcohol: Drinks/Day 1 or 2 Alcohol: 6 or more drinks Never Feel off balance No Concerns: Teeth/Dentures No Concerns: Sexual function No Troubled by feelings Stressed Frequency: Eating healthy diet Nearly every day ADLs requiring help None of the above Safety precautions in home/vehicle Yes Smoke, vape, chews tobacco No Difficulty hearing Yes, I wear a hearing aid Difficulty seeing No Current Providers Specialists: I have reviewed specialist-related care of the patient in the medical record. Current care team: Patient Care Team: Bud Cool MD as PCP - General (Family Medicine) Reggie Hanson MD (Urology) Alexis Dickerson MD (Gastroenterology) Terrance Zarate (Ophthalmology) Edie Pollard PA-C as Credit Collections Rep (Family Medicine) Medical/Family history review Reviewed and updated problem list, medical/surgical/family/social history, medications, and allergies. Opioid use review Opioid Medications (last 90 days) No data to display Anxiety/Depression screening PHQ-9 Score: 0 . ALPESH-7 Score: 0 . Recommendation: no further intervention at this time Cognitive screening Mini Cog Score: 5 Cognitive screening reviewed and No further action needed (score 3-5). Functional Observation Was the patient's Timed Up & Go test unsteady or >= 12 seconds? No Advance Care Planning Surrogate decision maker and/or advance care plan documented Measurements BP 140/74 Pulse (!) 58 Temp 36.4 C (97.5 F) (Temporal) Ht 175.3 cm (5' 9.02) Wt 90 kg (198 lb 6.6 oz) SpO2 97% BMI 29.29 kg/m Vision Screening: Follows with optometry/ophthalmology Assessment/Plan Medicare annual wellness visit, subsequent (Z00.00) - Counseled on healthy diet and regular exercise - Fall avoidance information provided - Personalized prevention plan provided Additional Concerns The following concerns were also discussed with the patient: Recording using [employer] software for draft documentation of the visit was discussed with the patient/authorized construction sales representative; all questions welcomed and answered. Patient/authorized construction sales representative agreed to proceed Subjective Annual Wellness Exam: - Reports a stressful year, primarily due to caregiving responsibilities for his mother. - Mother, aged 103, resides in a correction and requires extensive care. - Describes mother as mean and nasty, contributing to emotional stress. - Denies interest in counseling or support groups. - Plans to travel to [place] for a month in March to alleviate stress. - Reports good physical health, remains active, and works on a farm one day a week. - Plans a hunting and fishing trip to the [facility] in May. - Decreased exercise over the past couple of years due to caregiving responsibilities. - Consumes a diet rich in fruits and vegetables; drinks Boost protein drinks. - Takes magnesium in the morning. - Up to date on RSV and shingles vaccines. - Sees an eye doctor every two years; next appointment scheduled in five years. - Scheduled for a colonoscopy at age 81; last colonoscopy was at age 76. - Family history of colon cancer in father. - Monitors blood pressure weekly, with readings consistently between 132-142/68 mmHg. - Reports normal bowel movements. - Expresses deep appreciation and love for his , describing her as the greatest thing that has ever happened in my life. Hyperlipidemia: - Managed with simvastatin. - Total cholesterol 157 mg/dL. - HDL was 48 mg/dL. - Triglycerides were 106 mg/dL. BPH: - Managed with tamsulosin. - Reports nocturia once or twice per night. Anxiety: - Discontinued BuSpar after three days due to disorientation. Gastrointestinal: (-) constipation, (-) diarrhea Genitourinary: (+) nocturia Musculoskeletal: (-) knee pain, (-) swelling Psychiatric: (+) stress, (+) mental fatigue, (+) passive suicidal ideation Objective BP 140/74 Pulse (!) 58 Temp 36.4 C (97.5 F) (Temporal) Ht 175.3 cm (5' 9.02) Wt 90 kg (198 lb 6.6 oz) SpO2 97% BMI 29.29 kg/m GENERAL: NAD, alert and oriented. SKIN: Unremarkable, no rash or skin lesions. HEAD: Normocephalic. EYES: PERRLA, EOMI, conjunctiva clear. EARS: External ears normal, canals clear, TM's normal. NOSE/SINUSES: Nares normal. Septum midline. OROPHARYNX: Lips, mucosa, and tongue normal, good dentition. No oral lesions noted. NECK: Supple, no lymphadenopathy, normal thyroid, no carotid bruits. LUNGS: Clear to auscultation bilaterally, no wheezes/rhonchi/rales. HEART: Regular rate and rhythm, no murmurs. No ectopy. EXTREMITIES: Normal, no deformities, no skin discoloration, no edema. NEURO: Awake, alert and oriented x3, cranial nerves II-XII grossly intact, normal gait, no involuntary motions. Assessment & Plan 1. Screening for depression (Z13.31) 2. Encounter for screening examination for other mental health and behavioral disorders (Z13.39) - Significant caregiver stress related to mother's care and behavior; patient expresses emotional exhaustion and frustration. - Discussed counseling and support resources; patient declined. - Encouraged patient to prioritize self-care and consider exercise as a means to manage stress. 3. Medicare annual wellness visit, subsequent (Z00.00) - Reviewed immunization status: RSV vaccine received last June; recommended COVID booster and flu shot in the fall. - Eye exam completed this year; next exam in 5 years unless problems arise. - Colonoscopy up to date; next scheduled at age 81. - Encouraged continuation of regular physical activity. - Follow-up in 1 year. 4. Impaired fasting glucose (R73.01) - Fasting blood glucose 145 mg/dL; HbA1c increased from 5.6% last year to 6.0% this year, indicating prediabetes. - Advised patient to reduce intake of sugars, processed foods, and wine; increase fiber and protein intake. - Encouraged regular exercise to help lower blood glucose levels. - Discussed that medication is not necessary at this time; goal is to keep HbA1c under 7%. - Follow-up in 1 year with repeat labs. 5. Mixed hyperlipidemia (E78.2) - Total cholesterol 157 mg/dL, HDL 48 mg/dL, triglycerides 106 mg/dL; all within target ranges. - Continue simvastatin as prescribed. - Encouraged continuation of healthy diet and regular exercise. - Follow-up in 1 year with repeat labs. 6. Thrombocytopenia (D69.6) - Platelet count 140 x 10^9/L, slightly below reference range but stable compared to previous year. - No signs of bleeding or bruising; no changes in management at this time. - Follow-up in 1 year with repeat labs. documented in this encounter [facility] 03-12-2025 Instructions Bud Cool MD - 03/12/2025 8:23 AM EDT Screening schedule The following prevention plan is recommended: Advance Directive Discussion due on 08/15/2024 Medicare Advantage Annual Wellness Visit due on 08/15/2024 Depression Screening due on 03/13/2025 Anxiety Screening due on 03/13/2025 WHAT YOU CAN DO TO PREVENT FALLS Many falls can be prevented. By making some changes, you can lower your chances of falling. Four things YOU can do to prevent falls for you* and your caregiver 1. Begin a regular exercise program Exercise is one of the most important ways to lower your chances of falling. It makes you stronger and helps you feel better. Exercises that improve balance and coordination (like Eliud Chi) are the most helpful. Lack of exercise leads to weakness and increases your chances of falling. Ask your doctor or health care provider about the best type of exercise program for you. 2. Have your health care provider review your medicines Have your doctor or pharmacist review all the medicines you take, even [id number] medicines. As you get older, the way medicines work in your body can change. Some medicines, or combinations of medicines, can make you sleepy or dizzy and can cause you to fall. 3. Have your vision checked Have your eyes checked by an eye doctor at least once a year. You may be wearing the wrong glasses or have a condition like glaucoma or cataracts that limits your vision. Poor vision can increase your chances of falling. 4. Make your home safer About half of all falls happen at home. To make your home safer: Remove things you can trip over (like papers, books, clothes, and shoes) from stairs and places where you walk. Remove small throw rugs or use double-sided tape to keep the rugs from slipping. Keep items you use often in cabinets you can reach easily without using a step stool. Have grab bars put in next to your toilet and in the tub or shower. Use non-slip mats in the bathtub and on shower floors. Improve the lighting in your home. As you get older, you need brighter lights to see well. Hang light-weight curtains or shades to reduce glare. Have handrails and lights put in on all staircases. Wear shoes both inside and outside the house. Avoid going barefoot or wearing slippers. For more information, contact: Centers for Disease Control and Prevention www.cdc.gov/injury * This information may not apply if you have certain medical conditions. documented in this encounter [facility] 03-07-2025 Telephone encounter Note Pharmacy verified in [facility]. Patient has been identified by name and date of : Yes Patient aware RX will be sent to pharmacy. No need to notify patient. Patient phones for refill(s): Requested Prescriptions Pending Prescriptions Disp Refills simvastatin (ZOCOR) 20 mg tablet [Pharmacy Med Name: simvastatin 20 mg tablet] 90 tablet 3 Sig: TAKE 1 TABLET BY MOUTH AT BEDTIME Date of last office visit : 06/22/2024 Date of next office visit : 03/12/2025 Last 2 Encounter Wt Readings: Date: Wt: 06/22/2024 90.3 kg (199 lb 1.2 oz) 06/19/2024 89.3 kg (196 lb 13.9 oz) Cholesterol: ALT (SGPT) (U/L) Date Value 02/18/2020 31 Please advise. Mildred Guerra MA [facility] 03-07-2025 Miscellaneous Notes Pharmacy verified in [facility]. Patient has been identified by name and date of : Yes Patient aware RX will be sent to pharmacy. No need to notify patient. Patient phones for refill(s): Requested Prescriptions Pending Prescriptions Disp Refills simvastatin (ZOCOR) 20 mg tablet [Pharmacy Med Name: simvastatin 20 mg tablet] 90 tablet 3 Sig: TAKE 1 TABLET BY MOUTH AT BEDTIME Date of last office visit : 06/22/2024 Date of next office visit : 03/12/2025 Last 2 Encounter Wt Readings: Date: Wt: 06/22/2024 90.3 kg (199 lb 1.2 oz) 06/19/2024 89.3 kg (196 lb 13.9 oz) Cholesterol: ALT (SGPT) (U/L) Date Value 02/18/2020 31 Please advise. Mildred Guerra MA documented in this encounter [facility] 03-07-2025 Telephone encounter Note Received Labs from [facility]. Placed in provider's inbox for review. Route to [place] for scanning. [facility] 02-11-2025 Telephone encounter Note Orders in [place], please print and mail. Thanks Edie Pollard PA-C [facility] 02-11-2025 Miscellaneous Notes Orders in [place], please print and mail. Thanks Edie Pollard PA-C documented in this encounter [facility] 06-22-2024 Note HNO ID: [id number] Author: SHAYE ALVAREZ APRN.ACQUISITION MANAGER Service: ? Author Type: Nurse Practitioner Type: Progress Notes Filed: 06/22/2024 08:34 Note Text: Patient presents with: Follow Up: BP Taking buspar, helping with anxiety, helped with recent mom visit, no med AE Home Bps 130/60s Last 3 Encounter BP Readings: Date: BP: 06/22/2024 150/68 06/19/2024 191/78 03/13/2024 142/84 PHYSICAL EXAMINATION: BP 150/68 Pulse (!) 58 Ht 175.3 cm (5' 9.02) Wt 90.3 kg (199 lb 1.2 oz) SpO2 100% BMI 29.38 kg/m? General appearance: healthy, alert, cooperative, pleasant, in no acute distress Heart: regular rate and rhythm, without murmur Lungs: clear to auscultation, without rales or wheeze, good air exchange ASSESSMENT/PLAN: 1. Elevated BP without diagnosis of hypertension - ICD9: 796.2, ICD10: R03.0 (primary diagnosis) Improved, home bp readings at goal Dental clearance signed - Encouraged dietary sodium restriction/DASH diet - Recommended regular aerobic exercise. - Recommend home blood pressure monitoring, to bring results in on next visit - Recheck in 8 weeks, sooner if needed. 2. Anxiety - ICD9: 300.00, ICD10: F41.9 3. Caregiver role strain - ICD9: [id number], ICD10: Z63.8 Buspar helpful, tolerating this well Continue to use prn F/u in 8 wks, sooner prn Shaye Paredes APRN.[facility] 06-22-2024 History of Presen t illness Narrative Patient presents with: Follow Up: BP Taking buspar, helping with anxiety, helped with recent mom visit, no med AE Home Bps 130/60s Last 3 Encounter BP Readings: Date: BP: 06/22/2024 150/68 06/19/2024 191/78 03/13/2024 142/84 PHYSICAL EXAMINATION: BP 150/68 Pulse (!) 58 Ht 175.3 cm (5' 9.02) Wt 90.3 kg (199 lb 1.2 oz) SpO2 100% BMI 29.38 kg/m General appearance: healthy, alert, cooperative, pleasant, in no acute distress Heart: regular rate and rhythm, without murmur Lungs: clear to auscultation, without rales or wheeze, good air exchange ASSESSMENT/PLAN: 1. Elevated BP without diagnosis of hypertension - ICD9: 796.2, ICD10: R03.0 (primary diagnosis) Improved, home bp readings at goal Dental clearance signed - Encouraged dietary sodium restriction/DASH diet - Recommended regular aerobic exercise. - Recommend home blood pressure monitoring, to bring results in on next visit - Recheck in 8 weeks, sooner if needed. 2. Anxiety - ICD9: 300.00, ICD10: F41.9 3. Caregiver role strain - ICD9: [id number], ICD10: Z63.8 Buspar helpful, tolerating this well Continue to use prn F/u in 8 wks, sooner prn Shaye Paredes APRN.ACQUISITION MANAGER RSV Vaccine(1 - 1-dose 75+ series) Never done Advance Directive Discussion due on 08/15/2023 documented in this encounter [facility] 06-22-2024 Note HNO ID: [id number] Author: DONALD NGUYEN MA Service: ? Author Type: Patternmaker Apprentice Wood Type: Progress Notes Filed: 06/22/2024 08:34 Note Text: RSV Vaccine(1 - 1-dose 75+ series) Never done Advance Directive Discussion due on 08/15/2023 [facility] 06-19-2024 Note HNO ID: [id number] Author: SHAYE ALVAREZ APRN.ACQUISITION MANAGER Service: ? Author Type: Nurse Practitioner Type: Progress Notes Filed: 06/19/2024 08:52 Note Text: Patient presents with: Follow Up: BP clearance for dental Home Bps 140-130/70-60s Never high at home Went to dentist and it was 200s/80s, didn't feel anxious at this time Admits to lots of stress with caring for his mother Has to go see her this evening and knows it will be terrible Has financial stress as a result Unsure how to care for himself when this is a constant stressor Exercises, is in good physical condition Denies sx referable to elev bp Last 3 Encounter BP Readings: Date: BP: 06/19/2024 191/78 03/13/2024 142/84 01/15/2024 [id number] PHYSICAL EXAMINATION: BP 191/78 Pulse 62 Temp 36.1 ?C (97 ?F) Resp 16 Ht 175.3 cm (5' 9.02) Wt 89.3 kg (196 lb 13.9 oz) SpO2 99% BMI 29.06 kg/m? General appearance: healthy, alert, cooperative, pleasant, in no acute distress, anxious ASSESSMENT/PLAN: 1. Elevated BP without diagnosis of hypertension - ICD9: 796.2, ICD10: R03.0 (primary diagnosis) - Recommend home blood pressure monitoring, to bring results in on next visit - home readings consistently controlled Will address stress/anxiety and have close f/u to again reassess Start buspar, f/u in 3 days, will revisit dental clearance then 2. Anxiety - ICD9: 300.00, ICD10: F41.9 3. Caregiver role strain - ICD9: [id number], ICD10: Z63.8 Start buspar 1-2 times per day Close f/u as above - BUSPIRONE 5 MG TABLET Shaye Paredes APRN.[facility] 06-19-2024 History of Presen t illness Narrative Patient presents with: Follow Up: BP clearance for dental Home Bps 140-130/70-60s Never high at home Went to dentist and it was 200s/80s, didn't feel anxious at this time Admits to lots of stress with caring for his mother Has to go see her this evening and knows it will be terrible Has financial stress as a result Unsure how to care for himself when this is a constant stressor Exercises, is in good physical condition Denies sx referable to elev bp Last 3 Encounter BP Readings: Date: BP: 06/19/2024 191/78 03/13/2024 142/84 01/15/2024 170/82 PHYSICAL EXAMINATION: BP 191/78 Pulse 62 Temp 36.1 C (97 F) Resp 16 Ht 175.3 cm (5' 9.02) Wt 89.3 kg (196 lb 13.9 oz) SpO2 99% BMI 29.06 kg/m General appearance: healthy, alert, cooperative, pleasant, in no acute distress, anxious ASSESSMENT/PLAN: 1. Elevated BP without diagnosis of hypertension - ICD9: 796.2, ICD10: R03.0 (primary diagnosis) - Recommend home blood pressure monitoring, to bring results in on next visit - home readings consistently controlled Will address stress/anxiety and have close f/u to again reassess Start buspar, f/u in 3 days, will revisit dental clearance then 2. Anxiety - ICD9: 300.00, ICD10: F41.9 3. Caregiver role strain - ICD9: [id number], ICD10: Z63.8 Start buspar 1-2 times per day Close f/u as above - BUSPIRONE 5 MG TABLET Shaye Paredes APRN.ACQUISITION MANAGER RSV Vaccine(1 - 1-dose 75+ series) Never done Advance Directive Discussion due on 08/15/2023 Covid-19 Vaccine( season) due on 04/15/2024 documented in this encounter [facility] 06-19-2024 Note HNO ID: [id number] Author: XIN CHAVARRIA MA Service: ? Author Type: Patternmaker Apprentice Wood Type: Progress Notes Filed: 06/19/2024 08:52 Note Text: RSV Vaccine(1 - 1-dose 75+ series) Never done Advance Directive Discussion due on 08/15/2023 Covid-19 Vaccine( season) due on 04/15/2024 [facility] 05-23-2024 Telephone encounter Note Patient called back-needs to cancel that OV. Will call back to reschedule. Yadira Oseguera RN [facility] 05-23-2024 Miscellaneous Notes Patient called back-needs to cancel that OV. Will call back to reschedule. Yadira Oseguera RN Discussed with patient. He agrees to OV. Going on 1 month long trip. Scheduled for week he returns. Yadira Oseguera RN BP has been elevated the last few visits. Recommend appt with available provider. Thanks Edie Pollard PA-C KENIA is calling Bud Cool MD today to request Forms (Dentist- blood pressure) Patient went to see his dentist today and they turned him away, because of his blood pressure. He reported that the blood pressure was 140/60. His dentist gave him a form to have his PCP fill out and return before they will treat him. Does patient needs a visit? Please contact the patient to discuss. Patient has been identified by name and birthdate. Duration of symptoms: N/A Person calling: self Call patient at: at home [phone] (home) [phone] (cell) Was an appointment scheduled: No Closing statement: Lydia Banuelos documented in this encounter [facility] 05-23-2024 Telephone encounter Note Discussed with patient. He agrees to OV. Going on 1 month long trip. Scheduled for week he returns. Yadira Oseguera RN [facility] 05-23-2024 Telephone encounter Note BP has been elevated the last few visits. Recommend appt with available provider. Thanks Edie Pollard PA-C [facility] Work Phone: 05-22-2024 Telephone encounter Note KENIA is calling Bud Cool MD today to request Forms (Dentist- blood pressure) Patient went to see his dentist today and they turned him away, because of his blood pressure. He reported that the blood pressure was 140/60. His dentist gave him a form to have his PCP fill out and return before they will treat him. Does patient needs a visit? Please contact the patient to discuss. Patient has been identified by name and birthdate. Duration of symptoms: N/A Person calling: self Call patient at: at home [phone] (home) [phone] (cell) Was an appointment scheduled: No Closing statement: Lydia Banuelos [facility] Work Phone: 03-13-2024 History of Presen t illness Narrative Images from the original note were not included. Kenia Swain is a 78 year old male here for a Medicare wellness visit. Medicare Health Risk Assessment General Health Excellent Exercise: Minutes/Day 60 min Exercise: Days/Week 7 days Alcohol: Daily Use 4 or more times a week Alcohol: Drinks/Day 1 or 2 Alcohol: 6 or more drinks Never Feel off balance No Concerns: Teeth/Dentures No Concerns: Sexual function No Troubled by feelings None of the above Frequency: Eating healthy diet Nearly every day ADLs requiring help None of the above Safety precautions in home/vehicle Yes Smoke, vape, chews tobacco No Difficulty hearing Yes, I wear a hearing aid Difficulty seeing No Current Providers Specialists: I have reviewed specialist-related care of the patient in the medical record. Current care team: Patient Care Team: Bud Cool MD as PCP - General (Family Medicine) Reggie Hanson MD (Urology) Alexis Dickerson MD (Gastroenterology) Terrance Zarate (Ophthalmology) Medical/Family history review Reviewed and updated problem list, medical/surgical/family/social history, medications, and allergies. Opioid use review Opioid Medications (last 90 days) No data to display Anxiety/Depression screening PHQ-9 Score: 1 (Minimal Depression) Recommendation: no further intervention at this time Cognitive screening Mini Cog Score: 5 Cognitive screening reviewed and No further action needed (score 3-5). Functional Observation Was the patient's Timed Up & Go test unsteady or ? 12 seconds? No Advance Care Planning Surrogate decision maker and/or advance care plan documented Measurements BP 142/84 Pulse 60 Temp 36.4 C (97.6 F) (Temporal) Ht 175.3 cm (5' 9.02) Wt 90.1 kg (198 lb 10.2 oz) SpO2 99% BMI 29.32 kg/m Vision Screening: Follows with optometry/ophthalmology Assessment/Plan Medicare annual wellness visit, subsequent (.00) - Counseled on healthy diet and regular exercise - Fall avoidance information provided - Personalized prevention plan provided Additional Concerns The following concerns were also discussed with the patient: Has been working to settle the estate of his brother who passed in August and his elderly mother who is 102, in correction. Struggling mentally, is great support. Goes away for 2-3 days a month to relax. Psa in November 2023 1.31 Elevated bp - checked at home since November - 140s/60s. Likes to brisk walk 3 miles and lift weights 2-3 times a week. Dad of colon CA Colonoscopy 10/2021 - every 5 years. PHYSICAL EXAM BP 142/84 Pulse 60 Temp 36.4 C (97.6 F) (Temporal) Ht 175.3 cm (5' 9.02) Wt 90.1 kg (198 lb 10.2 oz) SpO2 99% BMI 29.32 kg/m GENERAL: well appearing, alert, in no acute distress CARDIOVASCULAR: regular rate and rhythm. No murmur, rubs or gallops. PULMONARY: clear to auscultation, no wheezing, rhonchi, or crackles ABDOMEN: soft, non-tender, non-distended, no masses or organomegaly EXTREMITY: no lower extremity edema. No skin discoloration. ASSESSMENT/PLAN: 1. Medicare annual wellness visit, subsequent - ICD9: V70.0, ICD10: Z00.00 (primary diagnosis) - Counseled on healthy diet and regular exercise 2. Screening for depression - ICD9: V79.0, ICD10: Z13.31 - DEPRESSION SCREENING 3. Encounter for screening examination for other mental health and behavioral disorders - ICD9: V79.8, ICD10: Z13.39 - ANXIETY SCREENING 4. Mixed hyperlipidemia - ICD9: 272.2, ICD10: E78.2 - Controlled - Continue current medications - Counseled on healthy diet and regular exercise - SIMVASTATIN 20 MG TABLET - LIPID PANEL BASIC - COMPREHENSIVE METABOLIC PANEL 5. Impaired fasting glucose - ICD9: 790.21, ICD10: R73.01 - COMPREHENSIVE METABOLIC PANEL - HEMOGLOBIN A1C 6. Thrombocytopenia (HCC) - ICD9: 287.5, ICD10: D69.6 - resolved, recheck in 1 year. - COMPLETE BLOOD COUNT AND DIFFERENTIAL Elevated bp - pt declines meds, hopefully with reduction in stress, bp will improve. Continue to monitor and watch sodium intake. Bud Cool MD documented in this encounter [facility] 03-13-2024 Instructions Bud Cool MD - 03/13/2024 8:04 AM EDT [facility] TEST INFORMATION [facility] HOURS: Lab is open: 7:30am to 5:00pm M - , 7:30am to 4:00pm on Tue and 8am -12pm on Tue. The lab is located in [facility] on the first floor. There is a registration window at the lab, available 7 am to 3 pm Tuesday - Tuesday. If registration is unavailable at the lab, you may register at the patient registration office near the front lobby of the hospital. SCHEDULING A LAB APPOINTMENT: Laboratory appointments are recommended.Walk ins are still accepted. Call [phone] or schedule via [employer] scheduling ticket. ROUTINE LAB ORDERS 60 days after they are entered. If your lab orders , you may be required to wait in the lab while they are reinstated FUTURE ORDERS are lab tests to be completed on the EXPECTED date. These orders 60 days after the expected date. STANDING ORDERS are recurring orders with an expiration date. The interval will indicate how often the test should be completed. CT / MRI / IVP If you have lab tests ordered for one of these radiology exams, please complete the blood work at least one day prior to the scheduled exam. PRESCRIPTION REFILL REQUESTS Request prescription refills through your [employer] account or contact your Pharmacy. My Chart Schedule My Appointment enables you to view your established primary care provider's open schedule and book an appointment online in real-time. This feature is available in internal medicine, family medicine, or pediatrics at any of our [facility] locations and main campus. Screening schedule The following prevention plan is recommended: Depression Screening Never done Anxiety Screening Never done RSV Vaccine(1 - 1-dose 60+ series) Never done Covid-19 Vaccine(2022- season) due on 04/15/2023 Advance Directive Discussion due on 08/15/2023 WHAT YOU CAN DO TO PREVENT FALLS Many falls can be prevented. By making some changes, you can lower your chances of falling. Four things YOU can do to prevent falls for you* and your caregiver 1. Begin a regular exercise program Exercise is one of the most important ways to lower your chances of falling. It makes you stronger and helps you feel better. Exercises that improve balance and coordination (like Eliud Chi) are the most helpful. Lack of exercise leads to weakness and increases your chances of falling. Ask your doctor or health care provider about the best type of exercise program for you. 2. Have your health care provider review your medicines Have your doctor or pharmacist review all the medicines you take, even [id number] medicines. As you get older, the way medicines work in your body can change. Some medicines, or combinations of medicines, can make you sleepy or dizzy and can cause you to fall. 3. Have your vision checked Have your eyes checked by an eye doctor at least once a year. You may be wearing the wrong glasses or have a condition like glaucoma or cataracts that limits your vision. Poor vision can increase your chances of falling. 4. Make your home safer About half of all falls happen at home. To make your home safer: Remove things you can trip over (like papers, books, clothes, and shoes) from stairs and places where you walk. Remove small throw rugs or use double-sided tape to keep the rugs from slipping. Keep items you use often in cabinets you can reach easily without using a step stool. Have grab bars put in next to your toilet and in the tub or shower. Use non-slip mats in the bathtub and on shower floors. Improve the lighting in your home. As you get older, you need brighter lights to see well. Hang light-weight curtains or shades to reduce glare. Have handrails and lights put in on all staircases. Wear shoes both inside and outside the house. Avoid going barefoot or wearing slippers. For more information, contact: Centers for Disease Control and Prevention www.cdc.gov/injury * This information may not apply if you have certain medical conditions. documented in this encounter [facility] 03-07-2024 Telephone encounter Note Prescription Refill Information The patient has been identified by name and date of : Yes Caregiver verified no other encounters exist for this prescription request: Yes Caregiver confirmed with patient/requestor that no other refills are due, in the near future, with this provider at this time: Yes The last office visit in the department: 03/08/2023 Does the patient have a future office visit with this provider/department: 03/13/2024 Requested Prescriptions Pending Prescriptions Disp Refills simvastatin (ZOCOR) 20 mg tablet [Pharmacy Med Name: simvastatin 20 mg tablet] 90 tablet 3 Sig: take 1 tablet by mouth at bedtime Rossi Gandhi MA March 07, 2024 12:46 PM [facility] 03-07-2024 Miscellaneous Notes Prescription Refill Information The patient has been identified by name and date of : Yes Caregiver verified no other encounters exist for this prescription request: Yes Caregiver confirmed with patient/requestor that no other refills are due, in the near future, with this provider at this time: Yes The last office visit in the department: 03/08/2023 Does the patient have a future office visit with this provider/department: 03/13/2024 Requested Prescriptions Pending Prescriptions Disp Refills simvastatin (ZOCOR) 20 mg tablet [Pharmacy Med Name: simvastatin 20 mg tablet] 90 tablet 3 Sig: take 1 tablet by mouth at bedtime Rossi Gandhi MA March 07, 2024 12:46 PM documented in this encounter [facility] 02-22-2024 Telephone encounter Note Request completed and faxed to [facility] at [phone] with confirmation of receipt. [facility] 02-22-2024 Miscellaneous Notes Request completed and faxed to [facility] at [phone] with confirmation of receipt. Orders printed. No lab orders placed. Please order. documented in this encounter [facility] 02-21-2024 Telephone encounter Note Orders printed. [facility] 02-17-2024 Telephone encounter Note No lab orders placed. Please order. [facility] 01-15-2024 Instructions Kayleigh Farris PA-C - 01/15/2024 11:57 AM EDT ASSESSMENT/PLAN: 1. Rash Waxing and waning x 5 weeks Started after being in the [place] [place] hunting - TRIAMCINOLONE ACETONIDE 0.1 % TOPICAL CREAM - DOXYCYCLINE MONOHYDRATE 100 MG CAPSULE Call PCP if symptoms worsen or no better. If symptoms worsen, or new symptoms develop go to ER. If you have worsening of breathing or breathing changes- go to ER. If you have persistent fever unrelieved by Tylenol/Motrin- go to the ER. Follow up as needed. Barriers to learning: none. The patient verbalizes understanding and is in agreement with plan of care. Kayleigh Farris PA-C documented in this encounter [facility] 01-15-2024 History of Presen t illness Narrative Images from the original note were not included. 01/15/2024 Patient presents with: Rash: 5 weeks ago symptoms started and rash is starting to spread it is on his sides upper back. Pt stated rash is itching. SUBJECTIVE: This is a 78 year old that is here today for treatment of an itchy rash on the back for about 5 weeks. He has a patch of itchy, pink, rash to the bilateral flanks and right lateral hip waxing and waning x 5 weeks. States it started after sitting in the [place] for turkey hunting. It is very itchy and waxes and wanes. Sometimes he does not even notice it's there. Other days it is very itchy and red. Not spreading or worsening. He denies any viral or sick symptoms prior to the rash or afterwards. His at home does not have a rash. He has no h/o eczema, psoriasis , or other autoimmune or recurring rashes. It is not tender, hot, burning, zinging, or dermatomal sensitive. No other sick symptoms. No other URI symptoms. Denies fever, chills, wheezing or SOB. Patient denies shortness of breath, increased WOB, or chest pain. Pain on scale of 0-10 with 0 being no pain and 10 being greatest pain: 0 Nothing makes the symptoms better. Nothing makes them worse. Self-treatment:. - Barriers to learning: none. Reviewed meds, OTCs, herbals or supplements. Reviewed allergies, medications, social history, and past medical history. PAST MEDICAL HISTORY Diagnosis Date Adenomatous colon polyp Benign prostatic hyperplasia with lower urinary tract symptoms Hyperlipidemia ALLERGIES Patient has no known allergies. MEDICATIONS Current Outpatient Medications Medication Sig simvastatin (ZOCOR) 20 mg tablet Take 1 tablet by mouth daily at bedtime. ibuprofen (ADVIL) 200 mg tablet Take 200 mg by mouth every 6 hours as needed. cetirizine (ZYRTEC) 10 mg tablet Take 10 mg by mouth once daily. triamcinolone acetonide (NASACORT AQ) 55 mcg nasal inhaler Use 2 Sprays in the nose once daily. cholecalciferol (VITAMIN D3) 50 mcg (2,000 unit) tablet Take 2,000 Units by mouth once daily. Magnesium 250 mg tab Take 250 mg by mouth once daily. tamsulosin ER (FLOMAX) 0.4 mg cap Take 0.8 mg by mouth once daily. No current facility-administered medications for this visit. Medications and allergies reviewed by this provider. SOCIAL HISTORY Social History Tobacco Use Smoking status: Never Smokeless tobacco: Never Substance Use Topics Alcohol use: Yes Alcohol/week: 7.0 standard drinks of alcohol Types: 7 Glasses of Wine (5oz) per week Drug use: Never REVIEW OF SYSTEMS Review of Systems ROS: constitutional-neg, heent-neg, heart-neg, respiratory-neg except as noted above, lymph-neg, skin-rash- All systems neg except as noted above in HPI. OBJECTIVE: BP 184/90 Pulse 95 Temp 36.4 C (97.6 F) Wt 90.6 kg (199 lb 13.6 oz) SpO2 99% BMI 29.50 kg/m . Vital signs reviewed by this provider. Physical Exam Vitals reviewed. Constitutional: General: He is not in acute distress. Appearance: Normal appearance. He is well-developed and normal weight. He is not ill-appearing, toxic-appearing or diaphoretic. HENT: Head: Normocephalic and atraumatic. Lymphadenopathy: Upper Body: Right upper body: No axillary adenopathy. Left upper body: No axillary adenopathy. Skin: General: Skin is warm. Capillary Refill: Capillary refill takes less than 2 seconds. Neurological: General: No focal deficit present. Mental Status: He is alert and oriented to person, place, and time. Sensory: Sensation is intact. Psychiatric: Behavior: Behavior is cooperative. ASSESSMENT/PLAN: 1. Rash - ICD9: 782.1, ICD10: R21 Waxing and waning x 5 weeks Started after being in the [place] hunting Non-descript at this time- no real characteristics to identify. Consider follicular or contact dermatitis- but has been present x5 weeks without resolving. Consider a post viral trunk rash (ie. [place]), but it is limited to small area. Does not appear fungal. - TRIAMCINOLONE ACETONIDE 0.1 % TOPICAL CREAM - DOXYCYCLINE MONOHYDRATE 100 MG CAPSULE 2. Elevated blood pressure reading without diagnosis of hypertension - ICD9: 796.2, ICD10: R03.0 Discussed elevated BPs here. 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 He has a notebook with him, in which BPs are documented. They appear to range 120-130s/60-80s. He feels that the elevated BPs at clinic visits, are related being in the office. It stresses me out getting my BP taken here. Advised to continue to monitor and document- if persistently >130/80, then PCP must see him. He has a PCP appt in February. Denies symptoms of elevated BP. Call PCP if symptoms worsen or no better. If symptoms worsen, or new symptoms develop go to ER. If you have worsening of breathing or breathing changes- go to ER. If you have persistent fever unrelieved by Tylenol/Motrin- go to the ER. Follow up as needed. Barriers to learning: none. The patient verbalizes understanding and is in agreement with plan of care. Kayleigh Farris PA-C Medical Decision Making: Problems: Low: Acute, uncomplicated illness or injury Risk: Low: Low risk from testing/treatment Moderate: Drug management Medical Decision Making Level: 3 - Low I spent a total of 20 minutes on the date of the service which included preparing to see the patient, [id number] patient care, completing clinical documentation, performing a medically appropriate examination, counseling and educating the patient/family/caregiver, and ordering medications, tests, or procedures. documented in this encounter [facility] 12-06-2023 Telephone encounter Note Has been caring for brother the last 2 years, passed in August - increased stress Mom 102 years old and difficult Pt under high levels of stress Unsure of exact readings, but both elevated at recent doctor visits Denies blurred vision, chest pain, headaches Will speak with about getting a BP cuff at home and logging numbers, call back with abnormal readings. Declined OV at this time (next OV March 13) will discuss with . Aware of symptoms that require ER evaluation. MC: Within the past week, I had routine appts at both urologist and dentist. At both appts, I was told my systolic BP was in the 180's, both with a cuff and with a wrist device. Knowing what you do about our current/continuing stressful family situation, do you recommend a visit with you before my next scheduled appt with you on March 13.? Reason for Disposition Systolic BP >= 160 OR Diastolic >= 100 Protocols used: Blood Pressure - [id number] [facility] 12-06-2023 Telephone encounter Note See triage [facility] 12-06-2023 Miscellaneous Notes See triage documented in this encounter [facility] 12-06-2023 Miscellaneous Notes Has been caring for brother the last 2 years, passed in August - increased stress Mom 102 years old and difficult Pt under high levels of stress Unsure of exact readings, but both elevated at recent doctor visits Denies blurred vision, chest pain, headaches Will speak with about getting a BP cuff at home and logging numbers, call back with abnormal readings. Declined OV at this time (next OV March 13) will discuss with . Aware of symptoms that require ER evaluation. MC: Within the past week, I had routine appts at both urologist and dentist. At both appts, I was told my systolic BP was in the 180's, both with a cuff and with a wrist device. Knowing what you do about our current/continuing stressful family situation, do you recommend a visit with you before my next scheduled appt with you on March 13.? Reason for Disposition Systolic BP >= 160 OR Diastolic >= 100 Protocols used: Blood Pressure - [id number] documented in this encounter [facility] 09-29-2023 History of Presen t illness Narrative This note was created using [employer]. Subjective Kenia Swain is a 78 year old male. HPI by patient: Kenia Swain is a 78 year old presenting to the office with the complaint of viral symptoms. Initially states symptoms for 6 weeks then states it goes away and comes back. Current symptoms for 10 days. States are you going to give me the z?! Is under a lot of stress and needs this to go away now. Associated symptoms include cough and congestion. Denies headache, ear pain, shortness of breath, sore throat, fever, chills, body aches, and gi symptoms. Covid Immunization Dates Overdue - Covid-19 Vaccine ( season) Overdue since 04/15/2023 03/02/2022 Postponed until 03/02/2023 by Wolfgang Beasley (Declined at this time) 07/30/2021 Imm Admin: COVID-19 original vaccine, full dose, monovalent (MODERNA) 11/12/2020 Imm Admin: COVID-19 original vaccine, full dose, monovalent (MODERNA) 10/15/2020 Imm Admin: COVID-19 original vaccine, full dose, monovalent (MODERNA) Sick contacts: none. Smoking history/second hand smoke: none. OTC not helping. No antibiotic use in the last 60 days. ALLERGIES No Known Allergies Family History Reviewed Including Cardiac Diseases, Psychiatric Diseases, & Substance Abuse Problem: Glaucoma Relation: Mother Age of Onset: (Not Specified) Problem: Colon Cancer Relation: Father Age of Onset: 77 Problem: Heart Attack Relation: Brother Age of Onset: 71 Problem: Lung Cancer Relation: Brother Age of Onset: 69 Problem: No Known Problems Relation: Daughter Age of Onset: (Not Specified) Problem: No Known Problems Relation: Son Age of Onset: (Not Specified) Social History Tobacco Use Smoking status: Never Smokeless tobacco: Never Alcohol use: Yes Alcohol/week: 7.0 standard drinks of alcohol Types: 7 Glasses of Wine (5oz) per week Drug use: Never Active Ambulatory Problems Hyperlipidemia 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 HENT: Positive for congestion. Eyes: Negative. Respiratory: Positive for cough. Cardiovascular: Negative. Gastrointestinal: Negative. Endocrine: Negative. Genitourinary: Negative. Musculoskeletal: Negative. Skin: Negative. Neurological: Negative. Objective BP 150/73 Pulse 64 Wt 89.2 kg (196 lb 10.4 oz) SpO2 99% BMI 29.03 kg/m Physical Exam Vitals reviewed. Constitutional: General: He is awake. He is not in acute distress. Appearance: He is not ill-appearing, toxic-appearing or diaphoretic. HENT: Head: Normocephalic and atraumatic. Right Ear: Tympanic membrane, ear canal and external ear normal. Left Ear: Tympanic membrane, ear canal and external ear normal. Nose: Nose normal. Right Sinus: No maxillary sinus tenderness or frontal sinus tenderness. Left Sinus: No maxillary sinus tenderness or frontal sinus tenderness. Mouth/Throat: Mouth: Mucous membranes are moist. Pharynx: Oropharynx is clear. No pharyngeal swelling, oropharyngeal exudate or posterior oropharyngeal erythema. Cardiovascular: Rate and Rhythm: Normal rate and regular rhythm. Pulmonary: Effort: Pulmonary effort is normal. Breath sounds: Normal breath sounds. Lymphadenopathy: Head: Right side of head: No submandibular or tonsillar adenopathy. Left side of head: No submandibular or tonsillar adenopathy. Cervical: No cervical adenopathy. Neurological: Mental Status: He is alert. Psychiatric: Behavior: Behavior is cooperative. Assessment and Plan (J06.9) Upper respiratory infection with cough and congestion Plan: amoxicillin-clavulanate potassium (AUGMENTIN) 875-125 mg per tablet Education on viral vs bacterial infections. Most viral infections will last 10 days, sometimes 14. It is possible to have back to back viral infections. An antibiotic will not treat a virus. States symptoms for 6 weeks but this is intermittent, current symptoms started about 10 days ago. Will have patient try Augmentin which is first line for sinusitis if it's bacterial. Doesn't want any cough medication prescribed. Assessment is completely normal. -Continue OTC cough/cold medication. -Drink lots of fluids and get plenty of rest. -Vaporizers, cool mist humidifiers, warm showers, and warm fluids help open respiratory and sinus passages. Clean humidifiers daily. -OTC tylenol/ibuprofen as directed on the bottle. -Saline nasal spray as needed. Flonase twice daily can help reduce inflammation through the sinus cavities. -Cough/deep breathing education, promote clearing of the airways and good lung expansion. -Make follow up with primary care for monitoring and resolution in symptoms. -Signs that warrant an ER evaluation: Sudden change/worsening in condition, lethargy, signs of dehydration, fever greater than 102 F that is not responding to Tylenol or ibuprofen (Motrin, Advil), drooling, difficulty swallowing, difficulty breathing, shortness of breath, chest pain, evidence of airway compromise (tripod position, neck extension, retractions), seizures, changes in mental status, or other concerns. The patient will pursue further outpatient evaluation with the primary care physician or another Urgent Care/Express Care as outlined in the after visit summary. The patient is agreeable to this plan of care and follow-up instructions have been explained in detail. The patient has received these instructions in written format and have expressed an understanding of the after visit summary. Medical Decision Making: Level: 4 - Moderate I spent a total of 20 minutes on the date of the service which included preparing to see the patient, [id number] patient care, completing clinical documentation, obtaining and/or reviewing separately obtained history, performing a medically appropriate examination, counseling and educating the patient/family/caregiver, and ordering medications, tests, or procedures. This patient encounter involved the screening or treatment of novel coronavirus infection (COVID-19). documented in this encounter [facility] 09-29-2023 Instructions Bibi Díaz APRN.CNP - 09/29/2023 2:26 PM EST (J06.9) Upper respiratory infection with cough and congestion Plan: amoxicillin-clavulanate potassium (AUGMENTIN) 875-125 mg per tablet Education on viral vs bacterial infections. Most viral infections will last 10 days, sometimes 14. It is possible to have back to back viral infections. An antibiotic will not treat a virus. States symptoms for 6 weeks but this is intermittent, current symptoms started about 10 days ago. Will have patient try Augmentin which is first line for sinusitis if it's bacterial. Doesn't want any cough medication prescribed. -Continue OTC cough/cold medication. -Drink lots of fluids and get plenty of rest. -Vaporizers, cool mist humidifiers, warm showers, and warm fluids help open respiratory and sinus passages. Clean humidifiers daily. -OTC tylenol/ibuprofen as directed on the bottle. -Saline nasal spray as needed. Flonase twice daily can help reduce inflammation through the sinus cavities. -Cough/deep breathing education, promote clearing of the airways and good lung expansion. -Make follow up with primary care for monitoring and resolution in symptoms. -Signs that warrant an ER evaluation: Sudden change/worsening in condition, lethargy, signs of dehydration, fever greater than 102 F that is not responding to Tylenol or ibuprofen (Motrin, Advil), drooling, difficulty swallowing, difficulty breathing, shortness of breath, chest pain, evidence of airway compromise (tripod position, neck extension, retractions), seizures, changes in mental status, or other concerns. documented in this encounter [facility] 01-11-2023 Miscellaneous Notes Pharmacy verified in [facility] Patient has been identified by name and date of : Yes Patient aware RX will be sent to pharmacy. No need to notify patient. Patient phones for refill(s): Requested Prescriptions Pending Prescriptions Disp Refills simvastatin (ZOCOR) 20 mg tablet 90 tablet 3 Sig: Take 1 tablet by mouth daily at bedtime. Date of last office visit : 04/01/2022 Date of next office visit : 03/08/2023 Last 2 Encounter Wt Readings: Date: Wt: 11/10/2022 92.1 kg (203 lb) 04/01/2022 89.4 kg (197 lb) Not applicable Please advise. Alphonse Alexandra Ma documented in this encounter [facility] 11-10-2022 History of Presen t illness Narrative This note was created using Tripshareriter. Subjective Kenia Swain is a 77 year old male. HPI by patient: Kenia Swain is a 77 year old presenting to the office with the complaint of viral symptoms. CC: (Sxs started october 18 URI but now he feels its coming back, chest pressure dry cough, rt ear everything sounds far away, no covid flu test pt declined. Stated z pack works in the past.) Started approximately 3 weeks prior. Associated symptoms include cough, congestion, and post nasal drainage. Denies fever, body aches, gi symptoms, sore throat, ear pain, and headaches. Covid Immunization Dates Postponed - COVID-19 VACCINE (4 - Booster for Moderna series) Postponed until 03/02/2023 03/02/2022 Postponed until 03/02/2023 by Wolfgang Beasley (Declined at this time) 07/30/2021 Imm Admin: COVID-19 vaccine, full dose (MODERNA) 11/12/2020 Imm Admin: COVID-19 vaccine, full dose (MODERNA) 10/15/2020 Imm Admin: COVID-19 vaccine, full dose (MODERNA) Flu/RSV contacts: none. Strep contacts: none. Sick contacts: yes. Covid + contacts: none. Travel in the last 14 days: none. Smoking history/second hand smoke: none. OTC Claritin, nasonex, and mucinex. No antibiotic use in the last 60 days. ALLERGIES Not on File Family History Reviewed Including Cardiac Diseases, Psychiatric Diseases, & Substance Abuse Problem: Glaucoma Relation: Mother Age of Onset: (Not Specified) Problem: Colon Cancer Relation: Father Age of Onset: 77 Problem: Heart Attack Relation: Brother Age of Onset: 71 Problem: Lung Cancer Relation: Brother Age of Onset: 69 Problem: No Known Problems Relation: Daughter Age of Onset: (Not Specified) Problem: No Known Problems Relation: Son Age of Onset: (Not Specified) Social History Tobacco Use Smoking status: Never Smokeless tobacco: Never Alcohol use: Yes Alcohol/week: 17.5 standard drinks Types: 7 Glasses of Wine (5oz) per week Drug use: Never Active Ambulatory Problems Hyperlipidemia 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 HENT: Positive for congestion and postnasal drip. Negative for ear pain and sore throat. Eyes: Negative. Respiratory: Positive for cough. Negative for shortness of breath. Cardiovascular: Negative. Gastrointestinal: Negative. Endocrine: Negative. Genitourinary: Negative. Musculoskeletal: Negative. Skin: Negative. Neurological: Negative. Objective BP 160/62 Pulse (!) 54 Temp 36.6 C (97.9 F) Wt 92.1 kg (203 lb) SpO2 99% BMI 29.96 kg/m Physical Exam Vitals reviewed. Constitutional: General: He is awake. He is not in acute distress. Appearance: He is not ill-appearing, toxic-appearing or diaphoretic. HENT: Head: Normocephalic and atraumatic. Right Ear: Tympanic membrane, ear canal and external ear normal. Left Ear: Tympanic membrane, ear canal and external ear normal. Nose: Nose normal. Right Sinus: No maxillary sinus tenderness or frontal sinus tenderness. Left Sinus: No maxillary sinus tenderness or frontal sinus tenderness. Mouth/Throat: Mouth: Mucous membranes are moist. Pharynx: Oropharynx is clear. No pharyngeal swelling, oropharyngeal exudate or posterior oropharyngeal erythema. Cardiovascular: Rate and Rhythm: Normal rate and regular rhythm. Pulmonary: Effort: Pulmonary effort is normal. Breath sounds: Normal breath sounds. Lymphadenopathy: Head: Right side of head: No submandibular or tonsillar adenopathy. Left side of head: No submandibular or tonsillar adenopathy. Cervical: No cervical adenopathy. Neurological: Mental Status: He is alert. Psychiatric: Behavior: Behavior is cooperative. Assessment and Plan (J06.9) Upper respiratory infection with cough and congestion (primary encounter diagnosis) Plan: amoxicillin-clavulanic acid (AUGMENTIN) 875-125 mg per tablet, benzonatate (TESSALON PERLES) 100 mg capsule (R03.0) Elevated blood-pressure reading without diagnosis of hypertension Plan: Education on viral vs bacterial infections. Most viral infections will last 10 days, sometimes 14. It is possible to have back to back viral infections. An antibiotic will not treat a virus. States symptoms for 3 weeks, will treat with Augmentin per [facility] guidelines. Assessment was normal. -Tessalon for cough, capsules that you swallow, do not chew. -Drink lots of fluids and get plenty of rest. -Vaporizers, cool mist humidifiers, warm showers, and warm fluids help open respiratory and sinus passages. Clean humidifiers daily. -OTC tylenol as directed on the bottle. -Saline nasal spray as needed. Flonase twice daily can help reduce inflammation through the sinus cavities. -Cough/deep breathing education, promote clearing of the airways and good lung expansion. -Make follow up with primary care for monitoring and resolution in symptoms, blood pressure recheck in 1 week with primary care. -Signs that warrant an ER evaluation: Sudden change/worsening in condition, lethargy, signs of dehydration, fever greater than 102 F that is not responding to Tylenol or ibuprofen (Motrin, Advil), drooling, difficulty swallowing, difficulty breathing, shortness of breath, chest pain, evidence of airway compromise (tripod position, neck extension, retractions), seizures, changes in mental status, or other concerns. The patient will pursue further outpatient evaluation with the primary care physician or another Urgent Care/Express Care as outlined in the after visit summary. The patient is agreeable to this plan of care and follow-up instructions have been explained in detail. The patient has received these instructions in written format and have expressed an understanding of the after visit summary. Medical Decision Making: Level: 4 - Moderate I spent a total of 20 minutes on the date of the service which included preparing to see the patient, [id number] patient care, completing clinical documentation, obtaining and/or reviewing separately obtained history, performing a medically appropriate examination, counseling and educating the patient/family/caregiver, and ordering medications, tests, or procedures. This patient encounter involved the screening or treatment of novel coronavirus infection (COVID-19). documented in this encounter [facility] 11-10-2022 Instructions Bibi Díaz APRN.CNP - 11/10/2022 9:54 AM EDT (J06.9) Upper respiratory infection with cough and congestion (primary encounter diagnosis) Plan: amoxicillin-clavulanic acid (AUGMENTIN) 875-125 mg per tablet, benzonatate (TESSALON PERLES) 100 mg capsule (R03.0) Elevated blood-pressure reading without diagnosis of hypertension Plan: Education on viral vs bacterial infections. Most viral infections will last 10 days, sometimes 14. It is possible to have back to back viral infections. An antibiotic will not treat a virus. States symptoms for 3 weeks, will treat with Augmentin per [facility] guidelines. -Tessalon for cough, capsules that you swallow, do not chew. -Drink lots of fluids and get plenty of rest. -Vaporizers, cool mist humidifiers, warm showers, and warm fluids help open respiratory and sinus passages. Clean humidifiers daily. -OTC tylenol as directed on the bottle. -Saline nasal spray as needed. Flonase twice daily can help reduce inflammation through the sinus cavities. -Cough/deep breathing education, promote clearing of the airways and good lung expansion. -Make follow up with primary care for monitoring and resolution in symptoms, blood pressure recheck in 1 week with primary care. -Signs that warrant an ER evaluation: Sudden change/worsening in condition, lethargy, signs of dehydration, fever greater than 102 F that is not responding to Tylenol or ibuprofen (Motrin, Advil), drooling, difficulty swallowing, difficulty breathing, shortness of breath, chest pain, evidence of airway compromise (tripod position, neck extension, retractions), seizures, changes in mental status, or other concerns. documented in this encounter [facility] 09-03-2022 Miscellaneous Notes Randolph is aware of the message Please call pt inform him mri is cear Darius Silver MD documented in this encounter [facility] 09-03-2022 History of Presen t illness Narrative Radiology Service Progress Note DATE OF SERVICE: September 03, 2022 TIME: 8:26 AM PATIENT IDENTITY VERIFICATION COMPLETED USING TWO (2) STANDARD IDENTIFIERS: Name and Date of confirmed by patient verbally. FALL SCREENING: Has the patient had 2 falls in the last year or 1 fall with injury or currently using an Ambulatory Assistive Device (Walker, Cane, Wheelchair, Crutches, etc.)? No PATIENT GENDER DATA: Male PATIENT RELEVANT IMPLANT DATA REVIEWED: Yes ALLERGIES: Reviewed and unchanged CONTRAST ALLERGY: NO. EXAM: MRI - CONTRAST TYPE: GROUP II PERIPHERAL IV DATA: Ambulatory: A peripheral IV was started in the Left antecubital site with a Angio cath: 22 gauge. RADIOLOGY DEPARTMENT: MR; Exam(s) Completed: Head: IAC/CPA SIGNATURE: PIPPA Ni PATIENT NAME: Kenia Swain DATE: September 03, 2022 TIME: 8:26 AM documented in this encounter [facility] 08-13-2022 Instructions LILLY Medrano - 08/13/2022 9:00 AM EST Images from the original note were not included. [facility] [place] Section of Audiology Thank you for trusting the [facility] Audiology department with your hearing healthcare today. We appreciated the opportunity to meet with you today to assess your hearing status and needs. For you to be able to hear, the brain requires sound to travel through the entire auditory system which involves the outer ear, middle ear, inner ear, and auditory nerve. Symptoms of hearing loss, tinnitus, dizziness, or sensations in the ear may have many different causes. These symptoms may be due to problems associated with your ear, vision, brain, heart, medications, other health conditions, or history of exposure to loud noises. Today you completed a comprehensive evaluation of your auditory system. TEST SUMMARY: Based on today's evaluation, your results revealed sensorineural hearing loss left ear greater than right ear. No previous results available. Sensorineural Hearing Loss: Hearing loss means we had to turn the sound up, outside the range of normal, in order for you to be able to hear it. This type of hearing loss affects the inner ear (cochlea) or auditory nerve. Loud noises, diseases or the aging process often cause it. Children are prone to this type due to congenital conditions (present at ), trauma during childbirth, head injuries or infections. Sensorineural hearing loss is often permanent. Hearing aids and hearing assistive devices can help. Based on today's test results and if you feel like your hearing loss is impacting your communication with others, you are a candidate for hearing technology. To schedule an appointment to discuss options for hearing technology, please call our scheduling line at [phone] and ask for a Hearing Aid Evaluation appointment at your preferred [facility] location. You can request this appointment with your vacuum kettle cook through [employer], as well. In order to investigate a potential insurance benefit for hearing aids, please plan to schedule your appointment for at least 1 week from the time of your phone call so that your insurance benefit can be verified. If there is no insurance benefit, please be aware there is a $100 [id number] fee due at time of service. Listed below are some communication strategies that help you hear others: 1) Facing communication partner. 2) Removing physical or visual barriers. 3) Maintaining a maximum distance for 6-10 feet from communication partner. 4) Encouraging communication partners to use clear speech and get their attention before speaking. 5) Reducing or removing background noise sources. 6) Taking turns speaking in conversation. 7) Ensuring the listener and speaker's voice are level with each other (both seated or both standing). Recommendations: *Continue medical follow-up with Darius Silver MD. * The patient was counseled regarding the need to continue to monitor hearing and have regular hearing assessments. * The patient was counseled about hearing conservation and use of noise protectors. * The patient was counseled regarding effective communication strategies to enhance communication ability. * Call [phone] to schedule an appointment to assess your need for hearing aids. Request a HAE appointment. * Patient was counseled to maintain a sound enriched environment to assist in managing the tinnitus. Thank you for trusting and choosing [facility] Audiology with your hearing care needs. Please do not hesitate to reach out with any questions or concerns. Sincerely, Lilly Mendoza, [facility] Clinical and Senior Hearing Implant Mold Sprayer documented in this encounter [facility] 08-13-2022 History of Presen t illness Narrative Head and Neck [place] AUDIOLOGIC EVALUATION REPORT Name: Kenia Swain [facility]#: [id number] Date of Service: 08/13/2022 Date of : 1945 Age: [age] year old Referred by: Darius Silver [address] [address] Referred for: Evaluation of the cause of disorder of hearing, tinnitus, or balance. Referral documented: In an order in Epic Patient's major complaints: Reduced hearing left ear greater than right ear, Tinnitus in both ears, History of noise exposure from either occupational or recreational sources. Long standing history of bilateral tinnitus that worsens with strenuous activity. 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 See SmartForm Audiogram for additional reported history and symptoms. Risk of Falls Documentation for over 65 years old: No history of falls reported so minimal to no risk IMPRESSIONS RIGHT EAR: Sensorineural hearing loss LEFT EAR: Sensorineural hearing loss Comparison of today's results with previous test results: No previous results available AUDIOLOGIC EVALUATION Following is a brief interpretation of the obtained findings from the audiologic evaluation. Refer to the Auditory Test Record for complete audiometric results. The patient was counseled about the test findings and appropriate audiologic recommendations were made. SUMMARY: Audiogram can be viewed under Forms/Audiology/SmartForm. OTOSCOPY RIGHT EAR: Otoscopic inspection revealed ear canal was clear with an identifiable cone of light. LEFT EAR: Otoscopic inspection revealed ear canal was clear with an identifiable cone of light. TYMPANOMETRY Description of procedure: This test is an objective evaluation of middle ear function. RIGHT EAR: Did not test. LEFT EAR: Did not test. ACOUSTIC REFLEXES Description of procedure: This test is an objective measure of auditory and facial nerve pathways. RIGHT EAR PROBE EAR: (ipsi right stimulus ear; contralateral left stimulus ear): Acoustic Reflex Pattern Did not test Acoustic Reflex Decay (left stimulus ear): Did not test. LEFT EAR PROBE EAR: (ipsi left stimulus ear; contralateral right stimulus ear): Acoustic Reflex Pattern Did not test Acoustic Reflex Decay (right stimulus ear):Did not test. PURE TONE AUDIOMETRY AND SPEECH TESTING Description of procedure: This test is an objective evaluation hearing sensitivity via air and bone conduction and speech recognition testing. RIGHT EAR: Hearing Sensitivity: Mild sloping to moderately severe SNHL Word Recognition Score: Excellent (90%). WRS is consistent with hearing sensitivity. Words were presented at 70 dB HL is above (greater than or equal to 60 dB HL) intensity level for average conversational speech. The NU-6 Ordered by Difficulty Word List (10 words) was used for testing. LEFT EAR: Hearing Sensitivity: Moderate sloping to moderately severe SNHL Word Recognition Score: Fair (70-79%). WRS is poorer than expected given hearing sensitivity. Words were presented at 85 dB HL which is above (greater than or equal to 60 dB HL) intensity level for average conversational speech. The NU-6 Ordered by Difficulty Word List (50 words) was used for testing. RECOMMENDATIONS *Continue medical follow-up with Darius Silver MD. * The patient was counseled regarding the need to continue to monitor hearing and have regular hearing assessments. * The patient was counseled about hearing conservation and use of noise protectors. * The patient was counseled regarding effective communication strategies to enhance communication ability. * Call [phone] to schedule an appointment to assess your need for hearing aids. Request a HAE appointment. * Patient was counseled to maintain a sound enriched environment to assist in managing the tinnitus. Lilly Mendoza, [facility] Clinical and Senior Hearing Implant Mold Sprayer copied to: Darius Silver MD MEJIA Abbrev- iation Definition Degree of hearing sensitivity dB range WNL within normal limits WNL 0 - 20 SNHL sensorineural hearing loss Mild 20-40 CHL conductive hearing loss Moderate 40-55 MHL mixed hearing loss Moderately-Severe 55-70 WRS word recognition score Severe 70-90 ME middle ear Profound 90 + TM tympanic membrane documented in this encounter [facility] 07-30-2022 Miscellaneous Notes Reviewed by Dr. Cool, sent to scanning. Katy Coulter LPN Received Electrodiagnostic testing from [facility]. Placed in provider's inbox for review. Route to [place] for scanning. documented in this encounter [facility] 05-07-2022 History of Presen t illness Narrative HPI Kenia Swain is a 76 year old male who presents with complaints of bilateral tinnitus. Patient is seen in consultation Arnoldo Deluna PA-C. Patient has had bilateral tinnitus for years. Patient denies any hearing loss although his feels his hearing is down. Patient does take Nasonex and has been doing great from that perspective with no further sinus infections for years. ROS General Weight loss: No Fatigue: No Night sweats:No Cardiac Chest pain:No Fast heart rate:No Swelling in the feet:No Respiratory Short of breath:No Cough:No Wheezing:No Gastrointestinal Nausea:No Vomiting:No Indigestion:No Past medical history, family history, and social history reviewed. PE There were no vitals taken for this visit. General: Patient is awake, alert, NAD. Voice is normal. Skin: normal Eyes: Extraocular motion and Gaze is normal. Ears: Right external auditory canal is normal. TMJ: normal. Right tympanic membranes normal. Left external auditory canal is normal. Left tympanic membrane normal. Nose: Septum is normal. Turbinates are normal. Nasopharynx:normal Oral Cavity/Oropharynx: Lips normal Dentition normal Tongue normal. Tonsils normal. Palate and uvula normal. Pharynx posterior normal Hypopharynx: Base of tongue normal Pyriform sinus normal. Larynx: Vocal cords normal. Epiglottis normal. Post cricoid normal. Salivary glands: Parotid normal. Submandibular and sublingual normal. Thyroid: normal. Lymphatic/Neck: Lymph nodes normal. Neurologic: Facial nerve normal. ASSESSMENT/PLAN: 1. Tinnitus of both ears - ICD9: 388.30, ICD10: H93.13 (primary diagnosis) - HEARING TEST/AUDIOGRAM 2. Sensorineural hearing loss (SNHL) of both ears - ICD9: 389.18, ICD10: H90.3 Recommend audiogram continue Nasonex Darius Silver MD Findings will be communicated to the referring physician via mail or electronic medical record. documented in this encounter [facility] 04-01-2022 History of Presen t illness Narrative Patient presents with: Follow Up HPI: Kenia Swain is a 76 year old male who presents to the office today for ER follow up. On 03/16, woke up with epigastric abdominal pain, persisted and radiated into his back No vomiting, appetite was good Pain worsened so went to [facility] - labs reportedly normal, CT showed pancreatitis Had fried food the day before this occurred. Home with clear liquids, got better in 3 days. Symptoms recurred 2 days ago after eating fried foods Sharp epigastric pain, constant, bloated, lasted 24 hours Tums didn't help, denies heartburn. Drinks glass of wine nightly, occasional beer. REVIEW OF SYSTEMS: CONSTITUTIONAL: No fevers, chills, nightsweats, unintended weight loss HEENT: Denies frequent or severe heaches, nasal congestion/sinus symptoms, problematic allergy problems. EYES: No diplopia or blurry vision. CARDIOVASCULAR: No chest pain, dyspnea, palpitations, orthopnea, PND, ankle edema. PULM: No dyspnea, unexplained cough. GI: No dysphagia/odynophagia, problematic reflux, constipation, diarrhea, changes in stool habits, hematochezia, melena. : No new urinary complaints, including dysuria, gross hematuria or pyuria. NEURO: No new balance problems, peripheral weakness/paresthesias or numbness of concern. MUSC-SKEL: No new joint pain, swelling, or erythema. PSY: No concerns regarding depression, anxiety or panic. INTEGUMENTARY: No new skin changes (rash, new or changing mole, new growth) PAST MEDICAL HISTORY Diagnosis Date Adenomatous colon polyp Benign prostatic hyperplasia with lower urinary tract symptoms Hyperlipidemia PAST SURGICAL HISTORY Procedure Laterality Date BACK SURGERY HX 2007 COLONOSCOPY 2017 repeat in 5 years COLONOSCOPY 10/28/2021 KNEE SURGERY HX Left 1996 KNEE SURGERY HX Right 2002 MOHS MICROGRAPHIC H/N/H/F/G 1ST STAGE 5 BLOCKS 2020 left ear NECK SURGERY HX 2001 sebaceous cyst removal SHOULDER SURGERY HX Right 1996 x 3 SHOULDER SURGERY HX Left 2009 FAMILY HISTORY Problem Relation Age of Onset Glaucoma Mother Colon Cancer Father 77 Heart Attack Brother 71 Lung Cancer Brother 69 No Known Problems Daughter No Known Problems Son Social History Tobacco Use Smoking status: Never Smokeless tobacco: Never Substance Use Topics Alcohol use: Yes Alcohol/week: 17.5 standard drinks Types: 7 Glasses of Wine (5oz) per week Drug use: Never ACTIVE PROBLEM LIST Hyperlipidemia Benign Prostatic Hyperplasia With Lower Urinary Tract Symptoms Squamous Cell Carcinoma of Left Ear Thrombocytopenia (Hcc) Impaired Fasting Glucose ALLERGIES No Known Allergies MEDICATIONS: simvastatin (ZOCOR) 20 mg tablet Take 1 tablet by mouth daily at bedtime. triamcinolone acetonide (NASACORT AQ) 55 mcg nasal inhaler Use 2 Sprays in the nose once daily. cholecalciferol (VITAMIN D3) 50 mcg (2,000 unit) tablet Take 2,000 Units by mouth once daily. Magnesium 250 mg tab Take 250 mg by mouth once daily. tamsulosin ER (FLOMAX) 0.4 mg cap Take 0.8 mg by mouth once daily. EXAM:BP 136/78 Pulse (!) 58 Temp 36.6 C (97.9 F) (Temporal) Wt 89.4 kg (197 lb) SpO2 97% BMI 29.08 kg/m Last Wt 04/01/22 : 89.4 kg (197 lb) 03/02/22 : 89.2 kg (196 lb 9.6 oz) 10/28/21 : 86.2 kg (190 lb) 05/12/21 : 89 kg (196 lb 3.2 oz) PHYSICAL EXAM: General Appearance: Well appearing, alert, in no acute distress, well-hydrated, well nourished.. Skin: Skin color, texture, turgor normal, no suspicious rashes or lesions. Abdomen: Normal abdominal exam, Abdomen soft, non-tender. Bowel sounds normal. No masses, organomegaly. Neurologic: Gait normal. ASSESSMENT/PLAN: 1. Acute pancreatitis, unspecified complication status, unspecified pancreatitis type - ICD9: 577.0, ICD10: K85.90 (primary diagnosis) - resolved, will try to avoid fatty foods and if pain recurs will get RUQ ultrasound to start work up for biliary colic. 2. Epigastric pain - ICD9: 789.06, ICD10: R10.13 Bud Cool DTAP,TDAP,TD(1 - Tdap) due on 03/01/2017 documented in this encounter [facility] 04-01-2022 Instructions Katy Coulter LPN - 04/01/2022 8:15 AM EDT [facility] TEST INFORMATION [facility] HOURS: Lab is open: 7:30am to 5:00pm - , 7:30am to 4:00pm on Tue and 8am -12pm on Tue. The lab is located in [facility] on the first floor. There is a registration window at the lab, available 7 am to 3 pm Tuesday - Tuesday. If registration is unavailable at the lab, you may register at the patient registration office near [facility]. SCHEDULING A LAB APPOINTMENT: Laboratory appointments are recommended.Walk ins are still accepted. Call [phone] or schedule via [employer] scheduling ticket. ROUTINE LAB ORDERS 60 days after they are entered. If your lab orders , you may be required to wait in the lab while they are reinstated FUTURE ORDERS are lab tests to be completed on the EXPECTED date. These orders 60 days after the expected date. STANDING ORDERS are recurring orders with an expiration date. The interval will indicate how often the test should be completed. CT / MRI / IVP If you have lab tests ordered for one of these radiology exams, please complete the blood work at least one day prior to the scheduled exam. PRESCRIPTION REFILL REQUESTS Request prescription refills through your [employer] account or contact your Pharmacy. My Chart Schedule My Appointment enables you to view your established primary care provider's open schedule and book an appointment online in real-time. This feature is available in internal medicine, family medicine, or pediatrics at any of our [facility] locations and main campus. documented in this encounter [facility] 03-29-2022 Miscellaneous Notes Addressed in other [facility] msg. Edie Deluna PA-C Please review and advise. documented in this encounter [facility] 03-25-[address] Abd/pel done on 03/19/22 shows acute pancreatitis, sigmoid diverticulosis, 3mm nonobstructing kidney stone, and small amount of stool in the colon. Patient d/c from ER with outpatient treatment instructions. Placed in outbox for scanning. Lydia Sparrow APRN.NEAL CT scan and ER notes from [facility]. Placed on 's desk for review. Return for scanning. Katy Coulter LPN documented in this encounter [facility] 03-25-2022 Miscellaneous Notes EKG done 03/22/22 shows sinus bradycardia, HR 59, otherwise normal EKG. Placed in outbox for scanning. Lydia Sparrow APRN.ACQUISITION MANAGER EKG from 03/19/22 office visit. Placed on Dr. Cool's desk for review. Return for scanning. aKty Coulter LPN documented in this encounter [facility] 03-02-2022 History of Presen t illness Narrative Patient presents with: Follow Up: lab work HPI: Kenia Swain is a 76 year old male who presents to the office today for follow up. Follow-up. The BPH has not given much issues. The weak stream and frequent urination has mostly subsided.Does not complain much of any issues outside of tinnitus that only occurs after strenuous exercise. However, patient does not report any ear pain/fullness, hearing loss or vertigo. Tinnitus has been around for some years. Discussed the possibility of hearing aid and hearing test which patient declined for now. Also discussed possibility of COVID-19 booster and pneumovax. Decided to do get pneumovax today. Discussed with patient the his labs which seem to be in good order except for the slightly elevated fasting glucose and the HA1C of 6. Thrombocytopenia Last platelets 133 04/2021 - 143 REVIEW OF SYSTEMS: CONSTITUTIONAL: No fevers, chills, nightsweats, unintended weight loss HEENT: Denies frequent or severe heaches, nasal congestion/sinus symptoms, problematic allergy problems. EYES: No diplopia or blurry vision. CARDIOVASCULAR: No chest pain, dyspnea, palpitations, orthopnea, PND, ankle edema. PULM: No dyspnea, unexplained cough. GI: No dysphagia/odynophagia, problematic reflux, constipation, diarrhea, changes in stool habits, hematochezia, melena. : No new urinary complaints, including dysuria, gross hematuria or pyuria. NEURO: No new balance problems, peripheral weakness/paresthesias or numbness of concern. MUSC-SKEL: No new joint pain, swelling, or erythema. PSY: No concerns regarding depression, anxiety or panic. INTEGUMENTARY: No new skin changes (rash, new or changing mole, new growth) PAST MEDICAL HISTORY Diagnosis Date Adenomatous colon polyp Benign prostatic hyperplasia with lower urinary tract symptoms Hyperlipidemia PAST SURGICAL HISTORY Procedure Laterality Date BACK SURGERY HX 2008 COLONOSCOPY 2017 repeat in 5 years COLONOSCOPY 10/28/2021 KNEE SURGERY HX Left 1996 KNEE SURGERY HX Right 2002 MOHS MICROGRAPHIC H/N/H/F/G 1ST STAGE 5 BLOCKS 2020 left ear NECK SURGERY HX 2001 sebaceous cyst removal SHOULDER SURGERY HX Right 1996 x 3 SHOULDER SURGERY HX Left 2009 FAMILY HISTORY Problem Relation Age of Onset Glaucoma Mother Colon Cancer Father 77 Heart Attack Brother 71 Lung Cancer Brother 69 No Known Problems Daughter No Known Problems Son Social History Tobacco Use Smoking status: Never Smoker Smokeless tobacco: Never Used Substance Use Topics Alcohol use: Yes Alcohol/week: 17.5 standard drinks Types: 7 Glasses of Wine (5oz) per week Drug use: Never ACTIVE PROBLEM LIST Hyperlipidemia Benign Prostatic Hyperplasia With Lower Urinary Tract Symptoms Squamous Cell Carcinoma of Left Ear Thrombocytopenia (Hcc) Impaired Fasting Glucose ALLERGIES No Known Allergies MEDICATIONS: simvastatin (ZOCOR) 20 mg tablet, Take 1 tablet by mouth daily at bedtime. triamcinolone acetonide (NASACORT) 55 mcg nasal inhaler, Use 2 Sprays in the nose once daily. cholecalciferol (VITAMIN D-3) 50 mcg (2,000 unit) tablet, Take 2,000 Units by mouth once daily. Magnesium 250 mg tab, Take 250 mg by mouth once daily. tamsulosin ER (FLOMAX) 0.4 mg cap, Take 0.8 mg by mouth once daily. EXAM:BP 130/82 Pulse 60 Temp (!) 35.8 C (96.4 F) (Temporal) Ht 175.3 cm (5' 9.02) Wt 89.2 kg (196 lb 9.6 oz) SpO2 98% BMI 29.02 kg/m Last Wt 03/02/22 : 89.2 kg (196 lb 9.6 oz) 10/28/21 : 86.2 kg (190 lb) 05/12/21 : 89 kg (196 lb 3.2 oz) 10/28/20 : 88 kg (194 lb) PHYSICAL EXAM: General Appearance: Well appearing, alert, in no acute distress, well-hydrated, well nourished.. Skin: Skin color, texture, turgor normal, no suspicious rashes or lesions. Lymph Nodes: No cervical lymphadenopathy, No supraclavicular lymphadenopathy Head: Normocephalic, no masses, lesions, tenderness or abnormalities. Eyes: Anicteric sclera. Pupils are equally round and reactive to light. Extraocular movements are intact. Nose/Sinuses: Nares normal, septum midline, mucosa normal, no drainage or sinus tenderness. Oropharynx: Lips, mucosa, and tongue normal, teeth and gums normal, oropharynx normal. Neck: Supple, no adenopathy; thyroid symmetric, normal size, no bruits. Lungs: Lungs clear to auscultation. No wheezing, rhonchi, rales. Heart: RRR without murmur, gallop, or rubs. No ectopy. Abdomen: Normal abdominal exam, Abdomen soft, non-tender. Bowel sounds normal. No masses, organomegaly. Extremities: No deformities, edema, skin discoloration, clubbing or cyanosis. Peripheral Pulses: Normal. Neurologic: Gait normal. Assessment/Plan ASSESSMENT/PLAN: 1. Mixed hyperlipidemia - ICD9: 272.2, ICD10: E78.2 (primary diagnosis) - good control - Continue current medication. - SIMVASTATIN 20 MG TABLET - LIPID PANEL BASIC 2. Encounter for immunization - ICD9: V03.89, ICD10: Z23 - PNEUMOCOCCAL VACCINE (PREVNAR 20) 3. Benign prostatic hyperplasia with nocturia - ICD9: 600.01, 788.43, ICD10: N40.1, R35.1 - stable, following with urology 4. Impaired fasting glucose - ICD9: 790.21, ICD10: R73.01 - continue to monitor diet - HGB A1C 5. Laboratory exam ordered as part of routine general medical examination - ICD9: V72.62, ICD10: Z00.00 - Counseled on healthy diet and regular exercise - COMP METABOLIC PANEL 6. Thrombocytopenia (HCC) - ICD9: 287.5, ICD10: D69.6 - stable - CBC + DIFF Bud Cool TEACHING PHYSICIAN NOTE OF PERSONAL INVOLVEMENT IN CARE: I have personally seen and examined the patient and performed the medical decision-making components. I have reviewed the medical student documentation and verified the findings in the note as written. Any additions or changes are noted in bold/italics. Signature: Bud Cool Date: 03/02/2022 Time: 1:39 PM PNEUMOCOCCAL: 66+(2 - PCV) due on 06/29/2014 DTAP,TDAP,TD(1 - Tdap) due on 03/01/2017 ADVANCE DIRECTIVE DISCUSSION Never done COVID-19 VACCINE(4 - Booster for Moderna series) due on 11/28/2021 documented in this encounter [facility] 03-02-2022 Instructions Katy Coulter LPN - 03/02/2022 8:42 AM EDT [facility] TEST INFORMATION [facility] HOURS: Lab is open: 7:30am to 5:00pm M - , 7:30am to 4:00pm on Tue and 8am -12pm on Tue. The lab is located in [facility] on the first floor. There is a registration window at the lab, available 7 am to 3 pm Tuesday. If registration is unavailable at the lab, you may register at the patient registration office near the front lobby of the hospital. SCHEDULING A LAB APPOINTMENT: Laboratory appointments are recommended.Walk ins are still accepted. Call [phone] or schedule via [employer] scheduling ticket. ROUTINE LAB ORDERS 60 days after they are entered. If your lab orders , you may be required to wait in the lab while they are reinstated FUTURE ORDERS are lab tests to be completed on the EXPECTED date. These orders 60 days after the expected date. STANDING ORDERS are recurring orders with an expiration date. The interval will indicate how often the test should be completed. CT / MRI / IVP If you have lab tests ordered for one of these radiology exams, please complete the blood work at least one day prior to the scheduled exam. PRESCRIPTION REFILL REQUESTS Request prescription refills through your [employer] account or contact your Pharmacy. My Chart Schedule My Appointment enables you to view your established primary care provider's open schedule and book an appointment online in real-time. This feature is available in internal medicine, family medicine, or pediatrics at any of our [facility] locations and main campus. documented in this encounter [facility] 12-23-2021 Miscellaneous Notes Last appointment: 05-12-21 Next appointment: 03-02-22 Pharmacy verified in [facility]. Refill(s) requested: Pending Prescriptions Disp Refills SIMVASTATIN 20 MG TABLET 90 tablet 3 Sig: Take 1 tablet by mouth daily at bedtime. LINNETTE: Yes Order(s) pended. Please advise. Shona Gaytan MA, [facility] documented in this encounter [facility] Evaluation note No assessment inform ation available [facility] Work Phone: Evaluation note Diagnosis Mixed hyperlipidemia [facility] Mixed hyperlipidemia- Primary Encounter for immunization Need for other specified prophylactic vaccination against single bacterial disease Benign prostatic hyperplasia with nocturia Impaired fasting glucose Laboratory exam ordered as part of routine general medical examination Laboratory examination ordered as part of a routine general medical examination Thrombocytopenia (HCC) Thrombocytopenia, unspecified [facility] Acute pancreatitis, unspecified complication status, unspecified pancreatitis type- Primary Epigastric pain Abdominal pain, epigastric [facility] Diagnosis Tinnitus of both ears- Primary Unspecified tinnitus Sensorineural hearing loss (SNHL) of both ears [facility] Tinnitus of both ears- Primary Unspecified tinnitus [facility] Diagnosis Sensorineural hearing loss (SNHL) of both ears- Primary [facility] Diagnosis Sensorineural hearing loss (SNHL) of both ears [facility] Diagnosis Upper respiratory infection with cough and congestion- Primary Acute upper respiratory infections of unspecified site Elevated blood-pressure reading without diagnosis of hypertension Elevated blood pressure reading without diagnosis of hypertension [facility] Diagnosis Mixed hyperlipidemia [facility] Diagnosis Upper respiratory infection with cough and congestion- Primary Acute upper respiratory infections of unspecified site [facility] Diagnosis Rash- Primary Rash and other nonspecific skin eruption Elevated blood pressure reading without diagnosis of hypertension [facility] Diagnosis Mixed hyperlipidemia- Primary Thrombocytopenia (HCC) Thrombocytopenia, unspecified Impaired fasting glucose Elevated PSA Elevated prostate specific antigen (PSA) [facility] Diagnosis Mixed hyperlipidemia [facility] Diagnosis Medicare annual wellness visit, subsequent- Primary Routine general medical examination at a health care facility Screening for depression Encounter for screening examination for other mental health and behavioral disorders Mixed hyperlipidemia Impaired fasting glucose Thrombocytopenia (HCC) Thrombocytopenia, unspecified [facility] Diagnosis Elevated BP without diagnosis of hypertension- Primary Anxiety Anxiety state, unspecified Caregiver role strain documented in this encounter [facility] note* Diagnosis Elevated BP without diagnosis of hypertension- Primary Anxiety Anxiety state, unspecified Caregiver role strain documented in this encounter [facility] note* Diagnosis Mixed hyperlipidemia- Primary Impaired fasting glucose Thrombocytopenia Thrombocytopenia, unspecified documented in this encounter [facility] note* Diagnosis Medicare annual wellness visit, subsequent- Primary Routine general medical examination at a health care facility Screening for depression Encounter for screening examination for other mental health and behavioral disorders Impaired fasting glucose Mixed hyperlipidemia Thrombocytopenia Thrombocytopenia, unspecified documented in this encounter [facility] for referral (narrative)No reason for referral information availableWDelaware [facility] Hospital Work Phone: Advance Directives No Advanced Directives Records FoundDocuments on File Type Date Recorded Patient Outside Sales Account Representative Expl anation Advance Directives and Living Will Power of Legal Executive Assistant Documents on File Type Date Recorded Patient Outside Sales Account Representative Expl anation Advance Directive(s) 10/28/2021 9:36 AM Advance Directive(s) 03/28/2020 10:12 AM Advance Directive Response Recorded Date/ Time Name of Medical Power of Legal Executive Assistant ira- March 19, 2022 10:02am Living Will Yes March 19, 2022 10:02am Power of Legal Executive Assistant Yes March 19 10:02am Documents on File Type Date Recorded Patient Outside Sales Account Representative Expl anation Advance Directive(s) 03/28/2020 10:12 AM Documents on File Type Date Recorded Patient Outside Sales Account Representative Expl anation Advance Directive(s) 03/28/2020 10:12 AM Advance Directive Response Recorded Date/ Time Living Will Yes March 19, 2022 10:02am Power of Legal Executive Assistant Yes March 19 10:02am Summary Purpose Family History No Family History Records FoundNo Family History Records FoundNo Family History Records Found Chief Complaint and Reason for Visit Chief Complaint ABDOMINAL PAIN Chief Complaint Admit Date LABS March 07, 2025 8:15 am Reason for Referral Specialty Diagnoses / Procedures Referred By Daniel bearden Referred To Contact Diagnoses Tinnitus of both ears Procedures HEARING TEST/AUDIOGRAM COMPRE AUDIOMETRY THRESHOLD Darius Patterson MD [address] [address] [facility] [address] [place] [address] [place] [address] Referral ID Status Reason Start Date Expiration Date Visits Requested Visits Authorized [id number] Authorized Auto-Generat ed Referral 05/07/2022 08/05/2022 1 1 Specialty Diagnoses / Procedures Referred By Daniel bearden Referred To Contact [facility] IMAGING Diagnoses Sensorineural hearing loss (SNHL) of both ears Procedures MRI BRAIN WO/W IVCON MRI BRAIN BRAIN STEM W/O W/CONTRAST MATERIAL Darius Silver MD [address] [address] [facility] Referral ID Status Reason Start Date Expiration Date Visits Requested Visits Authorized [id number] Authorized Auto-Generat ed Referral 08/17/2022 09/16/2023 1 1 Referral ID Status Reason Start Date Expiration Date V isits Requested Visits Authorized [id number] Closed Auto-Generate d Referral 08/17/2022 09/16/2023 1 1 Additional Source Comments (unrecognized sect ion and content) No Status Records FoundNo Status Records FoundNo Status Records Found INFORMATION SOURCE (unrecogn ized section and content) DATE CREATED AUTHOR 03/17/2020 [facility] DATE CREATED AUTHOR AUTHOR'S ORGANIZ ATION 03/13/2025 [facility] DATE CREATED AUTHOR AUTHOR'S ORGANIZ ATION 03/14/2025 [facility] Goals (unrecognized section and content) Goals may be documented in a n alternate sectionGoals may be documented in an alternate sectionGoals may be documented in an alternate sectionGoals may be documented in an alternate sectionGoals may be documented in an alternate sectionGoals may be documented in an alternate sectionGoals may be documented in an alternate sectionGoals may be documented in an alternate section Source Comments (unrecognize d section and content) In the event this informatio n is protected by the Federal Confidentiality of Alcohol and Drug Abuse Patient Records regulations: The Federal rules restrict any use of the information to criminally investigate or prosecute any alcohol or drug abuse patient.[facility] the event this information is protected by the Federal Confidentiality of Alcohol and Drug Abuse Patient Records regulations: The Federal rules restrict any use of the information to criminally investigate or prosecute any alcohol or drug abuse patient.[facility] CenterIn the event this information is protected by the Federal Confidentiality of Alcohol and Drug Abuse Patient Records regulations: The Federal rules restrict any use of the information to criminally investigate or prosecute any alcohol or drug abuse patient.[facility] Center[facility] the event this information is protected by the Federal Confidentiality of Alcohol and Drug Abuse Patient Records regulations: The Federal rules restrict any use of the information to criminally investigate or prosecute any alcohol or drug abuse patient.[facility] Center[facility] the event this information is protected by the Federal Confidentiality of Alcohol and Drug Abuse Patient Records regulations: The Federal rules restrict any use of the information to criminally investigate or prosecute any alcohol or drug abuse patient.[facility] CenterIn the event this information is protected by the Federal Confidentiality of Alcohol and Drug Abuse Patient Records regulations: The Federal rules restrict any use of the information to criminally investigate or prosecute any alcohol or drug abuse patient.[facility] CenterIn the event this information is protected by the Federal Confidentiality of Alcohol and Drug Abuse Patient Records regulations: The Federal rules restrict any use of the information to criminally investigate or prosecute any alcohol or drug abuse patient.[facility] CenterIn the event this information is protected by the Federal Confidentiality of Alcohol and Drug Abuse Patient Records regulations: The Federal rules restrict any use of the information to criminally investigate or prosecute any alcohol or drug abuse patient.[facility] CenterIn the event this information is protected by the Federal Confidentiality of Alcohol and Drug Abuse Patient Records regulations: The Federal rules restrict any use of the information to criminally investigate or prosecute any alcohol or drug abuse patient.[facility] CenterIn the event this information is protected by the Federal Confidentiality of Alcohol and Drug Abuse Patient Records regulations: The Federal rules restrict any use of the information to criminally investigate or prosecute any alcohol or drug abuse patient.[facility] CenterIn the event this information is protected by the Federal Confidentiality of Alcohol and Drug Abuse Patient Records regulations: The Federal rules restrict any use of the information to criminally investigate or prosecute any alcohol or drug abuse patient.[facility] CenterIn the event this information is protected by the Federal Confidentiality of Alcohol and Drug Abuse Patient Records regulations: The Federal rules restrict any use of the information to criminally investigate or prosecute any alcohol or drug abuse patient.[facility] CenterIn the event this information is protected by the Federal Confidentiality of Alcohol and Drug Abuse Patient Records regulations: The Federal rules restrict any use of the information to criminally investigate or prosecute any alcohol or drug abuse patient.[facility] CenterIn the event this information is protected by the Federal Confidentiality of Alcohol and Drug Abuse Patient Records regulations: The Federal rules restrict any use of the information to criminally investigate or prosecute any alcohol or drug abuse patient.[facility] CenterIn the event this information is protected by the Federal Confidentiality of Alcohol and Drug Abuse Patient Records regulations: The Federal rules restrict any use of the information to criminally investigate or prosecute any alcohol or drug abuse patient.[facility] CenterIn the event this information is protected by the Federal Confidentiality of Alcohol and Drug Abuse Patient Records regulations: The Federal rules restrict any use of the information to criminally investigate or prosecute any alcohol or drug abuse patient.[facility] Center[facility] the event this information is protected by the Federal Confidentiality of Alcohol and Drug Abuse Patient Records regulations: The Federal rules restrict any use of the information to criminally investigate or prosecute any alcohol or drug abuse patient.[facility] CenterIn the event this information is protected by the Federal Confidentiality of Alcohol and Drug Abuse Patient Records regulations: The Federal rules restrict any use of the information to criminally investigate or prosecute any alcohol or drug abuse patient.[facility] CenterIn the event this information is protected by the Federal Confidentiality of Alcohol and Drug Abuse Patient Records regulations: The Federal rules restrict any use of the information to criminally investigate or prosecute any alcohol or drug abuse patient.[facility] CenterIn the event this information is protected by the Federal Confidentiality of Alcohol and Drug Abuse Patient Records regulations: The Federal rules restrict any use of the information to criminally investigate or prosecute any alcohol or drug abuse patient.[facility] CenterIn the event this information is protected by the Federal Confidentiality of Alcohol and Drug Abuse Patient Records regulations: The Federal rules restrict any use of the information to criminally investigate or prosecute any alcohol or drug abuse patient.[facility] CenterIn the event this information is protected by the Federal Confidentiality of Alcohol and Drug Abuse Patient Records regulations: The Federal rules restrict any use of the information to criminally investigate or prosecute any alcohol or drug abuse patient.[facility] CenterIn the event this information is protected by the Federal Confidentiality of Alcohol and Drug Abuse Patient Records regulations: The Federal rules restrict any use of the information to criminally investigate or prosecute any alcohol or drug abuse patient.[facility] CenterIn the event this information is protected by the Federal Confidentiality of Alcohol and Drug Abuse Patient Records regulations: The Federal rules restrict any use of the information to criminally investigate or prosecute any alcohol or drug abuse patient.[facility] CenterIn the event this information is protected by the Federal Confidentiality of Alcohol and Drug Abuse Patient Records regulations: The Federal rules restrict any use of the information to criminally investigate or prosecute any alcohol or drug abuse patient.[facility] CenterIn the event this information is protected by the Federal Confidentiality of Alcohol and Drug Abuse Patient Records regulations: The Federal rules restrict any use of the information to criminally investigate or prosecute any alcohol or drug abuse patient.[facility] CenterIn the event this information is protected by the Federal Confidentiality of Alcohol and Drug Abuse Patient Records regulations: The Federal rules restrict any use of the information to criminally investigate or prosecute any alcohol or drug abuse patient.[facility] CenterIn the event this information is protected by the Federal Confidentiality of Alcohol and Drug Abuse Patient Records regulations: The Federal rules restrict any use of the information to criminally investigate or prosecute any alcohol or drug abuse patient.[facility] CenterIn the event this information is protected by the Federal Confidentiality of Alcohol and Drug Abuse Patient Records regulations: The Federal rules restrict any use of the information to criminally investigate or prosecute any alcohol or drug abuse patient.[facility] CenterIn the event this information is protected by the Federal Confidentiality of Alcohol and Drug Abuse Patient Records regulations: The Federal rules restrict any use of the information to criminally investigate or prosecute any alcohol or drug abuse patient.[facility] CenterIn the event this information is protected by the Federal Confidentiality of Alcohol and Drug Abuse Patient Records regulations: The Federal rules restrict any use of the information to criminally investigate or prosecute any alcohol or drug abuse patient.[facility] Reason for Visit (unrecogniz ed section and content) Reason Comments Refill Request Reason Comments Follow Up lab work Reason Comments Results Gretchen Cardiovascul ar Reason Comments Results Reason Comments Follow Up Reason Comments Ringing In Ear(s) both ears Specialty Diagnoses / Procedures Referred By Contac t Referred To Contact Ent - Otolaryngology Diagnoses Tinnitus of both ears Procedures CONSULT TO ENT OFFICE/OUTPATIENT [facility] MDM 60-74 MINUTES Edie Deluna PA-C [address] [place] [address] Referral ID Status Reason Start Date Expiration Date V isits Requested Visits Authorized [id number] Closed PCP Requested Referral 03/29/2022 03/29/2023 1 1 Specialty Diagnoses / Procedures Referred By Contac t Referred To Contact Diagnoses Tinnitus of both ears Procedures HEARING TEST/AUDIOGRAM COMPRE AUDIOMETRY THRESHOLD EVAL SP RECOGNIJ Darius Silver MD [address] [address] [facility] [address] [place] [address] Referral ID Status Reason Start Date Expiration Date V isits Requested Visits Authorized [id number] Closed Auto-Generate d Referral 05/07/2022 08/05/2022 1 1 Specialty Diagnoses / Procedures Referred By Contac t Referred To Contact MR IMAGING Diagnoses Sensorineural hearing loss (SNHL) of both ears Procedures MRI BRAIN WO/W IVCON MRI BRAIN BRAIN STEM W/O W/CONTRAST MATERIAL Darius Silver MD [address] [address] Mr Imaging Referral ID Status Reason Start Date Expiration Date V isits Requested Visits Authorized [id number] Closed Auto-Generate d Referral 08/17/2022 09/16/2023 1 1 Reason Comments Viral Syndrome Sxs started october 18 URI but now he feels its coming back, chest pressure dry cough, rt ear everything sounds far away, no covid flu test pt declined. Stated z pack works in the past. Reason Onset Date Comments Refill Request 01/11/2023 Reason Comments Viral Syndrome Congestion drainage cough for 6 weeks , otc medication Zicam cough drops cough medication. Reason Comments Blood Pressure Reason Comments Rash 5 weeks ago symptoms started and rash is starting to spread it is on his sides upper back. Pt stated rash is itching. Reason Comments Medicare Wellness Exam Reason Comments Forms Dentist- blood press ure Reason Comments Follow Up BP clearance for den abhay Reason Comments Follow Up BP Care Teams (unrecognized sec tion and content) Mobile Product Manager Relationship Specialty Start Date End Date Bud Cool MD [address] [place] [address] PCP - General Family Practice 02/26/19 Mobile Product Manager Relationship Specialty Start Date End Date Bud Cool MD [address] [place] [address] PCP - General Family Practice 02/26/19 Mobile Product Manager Relationship Specialty Start Date End Date Bud Cool MD [address] [place] [address] PCP - General Family Practice 02/26/19 Mobile Product Manager Relationship Specialty Start Date End Date Bud Cool MD [address] [place] [address] PCP - General Family Practice 02/26/19 Mobile Product Manager Relationship Specialty Start Date End Date Bud Cool MD [address] [place] [address] PCP - General Family Practice 02/26/19 Mobile Product Manager Relationship Specialty Start Date End Date Bud Cool MD [address] [place] [address] PCP - General Family Medicine 02/26/19 Mobile Product Manager Relationship Specialty Start Date End Date Bud Cool MD [address] [place] [address] PCP - General Family Medicine 02/26/19 Mobile Product Manager Relationship Specialty Start Date End Date Bud Cool MD [address] [place] [address] PCP - General Family Medicine 02/26/19 Mobile Product Manager Relationship Specialty Start Date End Date Bud Cool MD [address] [place] [address] PCP - General Family Medicine 02/26/19 Mobile Product Manager Relationship Specialty Start Date End Date Bud Cool MD [address] [place] [address] PCP - General Family Medicine 02/26/19 Mobile Product Manager Relationship Specialty Start Date End Date Bud Cool MD [address] [place] [address] PCP - General Family Medicine 02/26/19 Team Status: Active Member Role Status Dates Dr. Beni Ariza MD Family Provider Active Dr. Bud Cool MD Primary Care Provider Active Team Status: Inactive Member Role Status Dates Dr. Bud Cool MD Primary Care Provider Active REGGIE HANSON MD Attending Provider, Referring Pr ovider Active Team Status: Inactive Member Role Status Dates Dr. Bud Cool MD Primary Care Provi penny, Attending Provider, Referring Provider Active Mobile Product Manager Relationship Specialty Start Date End Date Bud Cool MD [address] [place] [address] PCP - General Family Medicine 02/26/19 Mobile Product Manager Relationship Specialty Start Date End Date Bud Cool MD [address] [place] [address] PCP - General Family Medicine 02/26/19 Mobile Product Manager Relationship Specialty Start Date End Date Bud Cool MD [address] [place] [address] PCP - General Family Medicine 02/26/19 Mobile Product Manager Relationship Specialty Start Date End Date Bud Cool MD [address] [place] [address] PCP - General Family Medicine 02/26/19 Mobile Product Manager Relationship Specialty Start Date End Date Bud Cool MD [address] [place] [address] PCP - General Family Medicine 02/26/19 Mobile Product Manager Relationship Specialty Start Date End Date Bud Cool MD [address] [place] [address] PCP - General Family Medicine 02/26/19 Mobile Product Manager Relationship Specialty Start Date End Date Bud Cool MD [address] [place] [address] PCP - General Family Medicine 02/26/19 Reggie Hanson MD [address] [place] [address] Urology 03/13/24 Alexis Dickerson MD [address] [facility] [place] [address] Gastroenterology 03/13/24 Terrance Zarate [facility] [address] [place] [address] Ophthalmology 03/13/24 Mobile Product Manager Relationship Specialty Start Date End Date Bud Cool MD [address] [place] [address] PCP - General Family Medicine 02/26/19 Reggie Hanson MD [address] [place] [address] Urology 03/13/24 Alexis Dickerson MD [address] [place] [address] Gastroenterology 03/13/24 Terrance Zarate [facility] [place] [address] Ophthalmology 03/13/24 Mobile Product Manager Relationship Specialty Start Date End Date Bud Cool MD [address] [place], [place] [id number] PCP - General Family Medicine 02/26/19 Reggie Hanson MD [address] [place], [place] [id number] Urology 03/13/24 Alexis Dickerson MD [address] [facility] [place] [address] Gastroenterology 03/13/24 Terrance Zarate [facility] [address] [place] [address] Ophthalmology 03/13/24 Team Status: Inactive Member Role Status Dates Dr. Bud Cool MD Primary Care Provider Active Start: December 05, 2024 End: December 05, 2024 Otf Walker PA-C Attending Provider Active St art: December 05, 2024 End: December 05, 2024 Otf Walker PA-C Referring Provider Active St art: December 05, 2024 End: December 05, 2024 Mobile Product Manager Relationship Specialty Start Date End Date Bud Cool MD [address] [place], [place] [id number] PCP - General Family Medicine 02/26/19 Reggie Hanson MD [address] [place] [address] Urology 03/13/24 Alexis Dickerson MD [address] [facility] [place] [address] Gastroenterology 03/13/24 Terrance Zarate [facility] [address] [place] [address] Ophthalmology 03/13/24 Edie Pollard PA-C [address] [place] [address] Credit Collections Rep Family Medicine 07/22/24 Mobile Product Manager Relationship Specialty Start Date End Date Bud Cool MD [address] [place] [address] PCP - General Family Medicine 02/26/19 Reggie Hanson MD [address] [place] [address] Urology 03/13/24 Alexis Dickerson MD [address] [place] [address] Gastroenterology 03/13/24 Terrance Zarate [facility] [address] [place] [address] Ophthalmology 03/13/24 Edie Pollard PA-C [address] [place] [address] Credit Collections Rep Family [facility] 07/22/24 Mobile Product Manager Relationship Specialty Start Date End Date Bud Cool MD [address] [place] [address] PCP - General Family Medicine 02/26/19 Reggie Hanson MD [address] [place] [address] Urology 03/13/24 Alexis Dickerson MD [address] [place] [address] Gastroenterology 03/13/24 Terrance Zarate [facility] [address] [place] [address] Ophthalmology 03/13/24 Edie Pollard PA-C [address] [place] [address] Credit Collections Rep [facility] 07/22/24 Mobile Product Manager Relationship Specialty Start Date End Date Bud Cool MD [address] [place] [address] PCP - General Family Medicine 02/26/19 Reggie Hanson MD [address] [place] [address] Urology 03/13/24 Alexis Dickerson MD [address] [place], [place] [id number] Gastroenterology 03/13/24 Terrance Zarate [facility] [place] [address] Ophthalmology 03/13/24 Edie Pollard PA-C [address] [place] [address] Credit Collections Rep Family Medicine 07/22/24 Mobile Product Manager Relationship Specialty Start Date End Date Bud Cool MD [address] [place] [id number] PCP - General Family Medicine 02/26/19 Reggie Hanson MD [address] [place], [place] [id number] Urology 03/13/24 Alexis Dickerson MD [address] [place] [address] Gastroenterology 03/13/24 Terrance Zarate [facility] [place] [address] Ophthalmology 03/13/24 Edie Pollard PA-C [address] [place] [address] Credit Collections Rep Family Medicine 07/22/24 Team Status: Active Member Role/Relationship Status Dates Dr. Bud Cool MD Primary Care Provider Active Team Status: Inactive Member Role/Relationship Status Dates Dr. Bud Cool MD Primary Care Provider Active Start: December 05, 2024 End: December 05, 2024 Otf Walker PA-C Attending Provider Active St art: December 05, 2024 End: December 05, 2024 Otf Walker PA-C Referring Provider Active St art: December 05, 2024 End: December 05, 2024 Team Status: Inactive Member Role/Relationship Status Dates Dr. Bud Cool MD Primary Care Provider Active Start: March 07, 2025 End: March 07, 2025 Dr. Bud Cool MD Attending Provider Active Start: March 07, 2025 End: March 07, 2025 Dr. Bud Cool MD Referring Provider Active Start: March 07, 2025 End: March 07, 2025 Edie NEW PA Other Provider Active Start: March 07, 2025 End: March 07, 2025 FOR RECORDS PERTAINING TO PATIENTS WHO ARE OR HAVE BEEN ENROLLED IN A CHEMICAL DEPENDENCY/SUBSTANCEABUSE PROGRAM, SOME INFORMATION MAY BE OMITTED. This clinical summary was aggregated from multiple sources. Caution should be exercised in using it in the provision of clinical care. This summary normalizes information from multiple sources, and as a consequence, information in this document may materially change the coding, format and clinical context of patient data. In addition, data may be omitted in some cases. CLINICAL DECISIONS SHOULD BE BASED ON THE PRIMARY CLINICAL RECORDS. [facility] [employer] [facility] provides no warranty or guarantee of the accuracy or completeness of information in this document.
[2025-05-03 23:43] LABS: AST(SGOT) 23 U/L (<=37); Alanine Aminotransfer ALT/SGPT 21 U/L (<=46); Albumin, Serum 4.3 g/dL (3.4-4.8); Alkaline Phosphatase 89 U/L (40-129); Anion Gap 13 (5-15); BUN 21 mg/dL (4-19); BUN/Creat Ratio 20.5 RATIO (10-20); Calcium,Total 9.0 mg/dL (7.6-11.0); Carbon Dioxide 22.4 mmol/L (21.0-32.0); Chloride 102 mmol/L (98-108); Estimated Creatinine Clearance 64.93 ml/min (50-250); Globulin 2.5 g/dL (2.2-4.2); Glucose 176 mg/dL (70-99); Lipase 32 U/L (13-75); Potassium 4.2 mmol/L (3.3-5.1)
[2025-05-04 00:14] VITALS: BP 148/75; PULSE 52; RESP 16; TEMP 36.9; O2SAT 97
[2025-05-04 03:01] VITALS: BP 130/65; PULSE 75; RESP 16; TEMP 36.6; O2SAT 99
== END 2025-05-04 03:07 | disposition home or self-care (01) ==
PROVIDERS: Emergency Provider Emergency Medicine; PCP Family Medicine Sports Medicine; Visit Provider Emergency Medicine
DX: K57.92 Diverticulitis of intestine, part unspecified, without perforation or abscess without bleeding (principal); E78.5 Hyperlipidemia, unspecified; R10.9 Unspecified abdominal pain
CPT/HCPCS: 74177; 80053; 81001; 83690; 85025; 96374; 96375; 99283; Q9967; A4216; J2405